=== PATIENT | male | born 1940 | race Caucasian/White ===

== ENCOUNTER → 2016-09-04 | Day surgery (SDC) | payer OTHER ==
[2016-08-28 08:43] VITALS: Ht 185.4 cm; Wt 85.9 kg
--- NOTE | 2016-08-28 09:11 | PAT Medication Instructions ---
Service Date Aug 28, 2016. Current Home Medication List Ascorbic Acid (Vitamin C), 500 MG PO BID Aspirin (Aspirin Ec), 81 MG PO QAM Coenzyme Q10 (Ubidecarenone) (Coq10), 100 MG PO Q2D Labelle Dextrin (Fiber Powder), 1 DOSE PO QAM Meloxicam (Mobic), 15 MG PO QAM [Di Vi Jennifer], 1 ML PO QAM [Fish Oil], 5 ML PO Q2D Medication Instructions For Your Scheduled Surgery - Stopped already: Meloxicam (Mobic), 15 MG PO QAM - Hold the following medications as of 08/29/16: [Fish Oil], 5 ML PO Q2D Coenzyme Q10 (Ubidecarenone) (Coq10), 100 MG PO Q2D - Hold the following medications the morning of surgery: Ascorbic Acid (Vitamin C), 500 MG PO BID Labelle Dextrin (Fiber Powder), 1 DOSE PO QAM [Di Vi Jennifer], 1 ML PO QAM - Take the following medications the morning of surgery with a sip of water OTHERWISE NOTHING TO EAT OR DRINK AFTER MIDNIGHT: Aspirin (Aspirin Ec), 81 MG PO QAM - Take the following medications as scheduled the night before surgery: Ascorbic Acid (Vitamin C), 500 MG PO BID If you have any questions please call us at [phone] or [phone] or [phone]
[2016-08-28 10:02] LABS: BASO % 0.7 %; BASO ABS # 0.04 K/uL (0-0.2); COMPLETE YES; EOS % 1.7 %; HEMATOCRIT 44.4 % (42-52); IG% 0.2 %; LYMPH ABS # 2.08 K/uL (1.2-3.4); MEAN CELL VOLUME 90.2 fL (80-100); MEAN CORPUSCULAR HEMOGLOBIN 30.5 pg (25-34); MEAN CORPUSCULAR HGB CONC 33.8 g/dl (32-36); MEAN PLATELET VOLUME 9.4 fL (7.4-10.4); MONO % 5.4 %; PLATELET COUNT 131 K/uL (130-400); RED BLOOD COUNT 4.92 M/uL (4.7-6.1); WHITE BLOOD COUNT 5.77 K/uL (4.8-10.8)
[2016-08-28 10:05] LABS: URINE APPEARANCE CLEAR (CLEAR); URINE BILIRUBIN NEG (NEG); URINE COLOR YELLOW; URINE NITRITE NEG (NEG); URINE PH 5.5 (4.5-7.5); URINE SPECIFIC GRAVITY 1.022 (1.000-1.030); UROBILINOGEN NEG (NEG); ZZUR CULT IF INDIC CLEAN CATCH NO
[2016-08-28 10:08] LABS: MANUAL MICROSCOPIC REQUIRED? NO; REVIEW REQ? NO
[2016-08-28 10:18] LABS: INR 1.1 (0.9-1.1); PARTIAL THROMBOPLASTIN RATIO 1.1; PROTHROMBIN TIME (PATIENT) 11.3 SECONDS (9.0-12.0)
--- NOTE | 2016-08-28 11:05 | DIAGNOSTIC IMAGING REPORT ---
CHEST PREADMISSION(PA/LAT) HISTORY: Preop. COMPARISON: Chest 07/02/2011. FINDINGS: The lungs are clear. Cardiac silhouette is normal in size. No pleural effusions. No pneumothorax. IMPRESSION: No acute process. Electronically signed by: Erick Albarado M.D. 08/28/2016 11:04 AM Dictated Date/Time: 08/28/2016 11:03 AM
[2016-08-28 11:13] LABS: BUN/CREATININE RATIO 25.5 (10-20); CALCIUM 9.1 mg/dl (8.5-10.1); CREATININE 0.65 mg/dl (0.60-1.40); POTASSIUM 4.2 mmol/L (3.5-5.1)
[2016-08-28 11:31] LABS: ESTIMATED AVERAGE GLUCOSE 100 mg/dl; HA1C FLAG Normal (Normal)
--- NOTE | 2016-09-03 13:36 | History and Physical ---
History & Physical Date Sep 03, 2016. Chief Complaint Left knee pain History of Present Illness The patient is a 76 year old male with complaints of Additional History Hepatic Disease: No Endocrine Disorder: No Kidney Disease: No Hypertension: No Heart Disease: No Bleeding Tendencies: No Infectious Diseases: No Allergies Coded Allergies: Sulfa Drugs (Verified Allergy, Intermediate, SWELLS, 08/28/16) Home Medications Scheduled Ascorbic Acid (Vitamin C), 500 MG PO BID Aspirin (Aspirin Ec), 81 MG PO QAM Coenzyme Q10 (Ubidecarenone) (Coq10), 100 MG PO Q2D [place] Dextrin (Fiber Powder), 1 DOSE PO QAM Meloxicam (Mobic), 15 MG PO QAM [Di Vi Jennifer], 1 ML PO QAM [Fish Oil], 5 ML PO Q2D Physical Examination Skin: warm/dry Eyes: normal inspection, EOMI ENT: normal ENT inspection, pharynx normal Head: normocephalic Neck: supple, no adenopathy Respiratory/Chest: lungs clear Cardiovascular: regular rate, rhythm Extremities: normal inspection, + pertinent finding (Left knee medial compartment pain, ROM ~ 0-130) Addiitonal Comments: Xrays: Near bone on bone arthritis medial compartment with mild osteophytes Diagnosis Left knee DJD Plan of Treatment Left total knee arthroplasty
[~2016-09-04] VITALS: Ht 185.4 cm; Wt 85.9 kg
[~2016-09-04] MED LIST: ACET-24 PO; ACETAMINOPHEN 500 MG TAB PO SCH; ASCO1CAP3 PO; ASPEC81 PO; ASPI81TA28 PO; BUPIVACAINE 0.5 % 5 MG/1 ML PF 10ML VIAL ONE; CEFAZOLIN 2000 MG/60 ML D5W 60 ML IV SCH; CLC100 PO; COEN100C7 PO; CORN1POW2 PO; DEXAMETHASONE 4 MG TAB PO SCH; FISHOIL PO; GABAPENTIN 300 MG CAP PO SCH; LACTATED RINGER'S 1000ML 1,000 ML IV SCH; LACTATED RINGER'S 1000ML 500 ML IV ONE; MELO7.5T5 PO; METOCLOPRAMIDE HCL 10 MG TAB PO SCH; ONDA8TAB6 PO; ROPIVACAINE 5MG/ML 30 ML 150 MG, BUPIVACAINE/EPINEPHR 0.5% MPF 30 ML, KETOROLAC TROMETH... INFIL SCH; RXC5 PO; TRANEXAMIC ACID INJ 1,000 MG in SODIUM CHLORIDE 0.9% 100ML 100 ML IV SCH; [UNRECOGNIZED DRUG - OTHER] PO
--- NOTE | 2016-09-04 09:37 | History & Physical Bridge Note ---
H&P Re-Evaluation Bridge Note: I have examined the patient, reviewed the History & Physical and in the interval since the performance of the History & Physical I have noted the following changes of clinical significance: No changes noted
--- NOTE | 2016-10-31 12:07 | EDITING REQUIRED CODING QUERY ---
SUPPORTING DIAGNOSIS NEEDED A supporting diagnosis is required for the test/procedure performed on this patient in order for us to be reimbursed by the patient's insurance. Please provide a supporting diagnosis for the following test/procedure listed below next to the test name along with your signature. *If there is no additional diagnosis for this patient that would support the following test/procedure please document that below next to the test/procedure. Test(s)/Procedure(s) that require a supporting diagnosis: * HEMOGLOBIN A1C z01.818 DIAGNOSIS:z01.818 Provider Signature: Date: Thank you Ines Cheng [facility] Information Management Once completed, please kindly fax back to [phone] For questions please call [phone]
== END | disposition home or self-care (01) ==
LOC: C.ACU 08:39
DX: Z53.09 Procedure and treatment not carried out because of other contraindication (principal); M17.12 Unilateral primary osteoarthritis, left knee; Z79.82 Long term (current) use of aspirin; Z85.828 Personal history of other malignant neoplasm of skin; Z96.641 Presence of right artificial hip joint

== ENCOUNTER 2016-10-09 05:58 | Inpatient (IN) | payer OTHER ==
[2016-09-29 14:41] VITALS: BMI 24.0
--- NOTE | 2016-10-08 13:46 | HISTORY & PHYSICAL EXAMINATION ---
DATE OF ADMISSION: 10/09/2016 CHIEF COMPLAINT: Left knee pain. HISTORY OF PRESENT ILLNESS: The patient is a 76-year-old gentleman who we have been taking care of for left knee osteoarthritis. He has had previous corticosteroid as well as viscosupplementation injections. He had minimal relief with these modalities. He continues to have a significant amount of pain and disability relating to his knee. He now desires to proceed with left total knee arthroplasty. PAST MEDICAL HISTORY: Osteoarthritis, allergic rhinitis, skin cancer. PAST SURGICAL HISTORY: Hip replacement, hemorrhoidectomy, hernia repair, excision of squamous cell carcinoma. MEDICATIONS: Aspirin 81 mg daily, CoQ10 100 mg every other day, fish oil daily, vitamin D3 daily, multivitamin daily, vitamin C 500 mg twice daily. ALLERGIES: SULFA WHICH CAUSES A RASH. SOCIAL HISTORY AND REVIEW OF SYSTEMS: Noncontributory. PHYSICAL EXAMINATION: GENERAL: Well-nourished, well-developed elderly male who appears stated age. HEAD, EYES, EARS, NOSE, AND THROAT: Normocephalic, atraumatic, extraocular movements intact, oropharynx pink and moist. NECK: Supple without adenopathy. LUNGS: Clear to auscultation bilaterally. HEART: Regular rate and rhythm. ABDOMEN: Soft, nontender, nondistended. EXTREMITIES: The upper extremities are within normal limits. The left knee is neutrally aligned. His range of motion from 0-125 degrees. He complains primarily of medial compartment pain. He has mild crepitus with range of motion. X-RAYS: X-rays were reviewed. His knee is neutrally aligned. He has moderate to severe osteoarthritis about the medial compartment with near complete loss of the joint space. There is evidence of subchondral sclerosis. ASSESSMENT: Left knee degenerative joint disease. PLAN: Risks versus benefits were discussed, consent was obtained. The patient's primary care physician is Dr. Patrica Zamorano. Will proceed with left total knee arthroplasty upon preoperative workup and medical clearance.
[~2016-10-09] VITALS: Ht 185.4 cm; Wt 84.1 kg
[2016-10-09] VITALS (8 sets, daily range): BP systolic 101–142; BP diastolic 60–79; PULSE 68–79; TEMP 36.3–36.7; O2SAT 93–98; Ht 185.4 cm; Wt 84.1 kg
[~2016-10-09 05:58] MED LIST changes: -ACET-24 PO; -ACETAMINOPHEN 500 MG TAB PO SCH; -ASPEC81 PO; -BUPIVACAINE 0.5 % 5 MG/1 ML PF 10ML VIAL ONE; -CEFAZOLIN 2000 MG/60 ML D5W 60 ML IV SCH; -CLC100 PO; -DEXAMETHASONE 4 MG TAB PO SCH; -GABAPENTIN 300 MG CAP PO SCH; -LACTATED RINGER'S 1000ML 1,000 ML IV SCH; -LACTATED RINGER'S 1000ML 500 ML IV ONE; -METOCLOPRAMIDE HCL 10 MG TAB PO SCH; -ONDA8TAB6 PO; -ROPIVACAINE 5MG/ML 30 ML 150 MG, BUPIVACAINE/EPINEPHR 0.5% MPF 30 ML, KETOROLAC TROMETH... INFIL SCH; -RXC5 PO; -TRANEXAMIC ACID INJ 1,000 MG in SODIUM CHLORIDE 0.9% 100ML 100 ML IV SCH
[2016-10-09] MEDS ORDERED: METOCLOPRAMIDE HCL 10 MG TAB PO SCH (06:00)
[2016-10-09] MEDS ORDERED: ROPIVACAINE 5MG/ML 30 ML 150 MG, BUPIVACAINE/EPINEPHR 0.5% MPF 30 ML, KETOROLAC TROMETH... INFIL SCH ×7 (06:00)
[2016-10-09] MEDS ORDERED: CEFAZOLIN 2000 MG/60 ML D5W 60 ML IV SCH (06:00)
[2016-10-09] MEDS ORDERED: LACTATED RINGER'S 1000ML IV SCH (06:00)
[2016-10-09] MEDS ORDERED: GABAPENTIN 300 MG CAP PO SCH (06:00)
[2016-10-09] MEDS ORDERED: DEXAMETHASONE 4 MG TAB PO SCH (06:00)
[2016-10-09] MEDS ORDERED: LACTATED RINGER'S 1000ML 1,000 ML IV SCH (06:00)
[2016-10-09] MEDS ORDERED: ACETAMINOPHEN 500 MG TAB PO SCH (06:00)
[2016-10-09] MEDS ORDERED: FAMOTIDINE 20 MG TAB PO SCH (06:00)
[2016-10-09] MEDS ORDERED: LACTATED RINGER'S 1000ML 500 ML IV ONE (06:00)
[2016-10-09] MEDS ORDERED: BUPIVACAINE 0.5 % 5 MG/1 ML PF 10ML VIAL ONE (06:30)
[2016-10-09] MEDS ORDERED: BUPIVACAINE/EPINEPHRINE 0.25% 10 ML VIAL ONE (06:31)
[2016-10-09] MEDS ORDERED: DEXAMETHASONE SOD INJ 4 MG/ML VIAL ONE (06:31)
[2016-10-09] MEDS ORDERED: FENTANYL CITRATE INJ 50 MCG/1 ML 2 ML VIAL ONE (06:52)
[2016-10-09] MEDS ORDERED: MIDAZOLAM HCL 1 MG/ML 2ML VIAL ONE (06:52)
[2016-10-09] MEDS ORDERED: ATROPINE SULFATE 0.1 MG/ML 5ML SYR IV PRN (07:15)
[2016-10-09] MEDS ORDERED: EpHEDrine SULFATE INJ 50 MG/ML AMP IV PRN (07:15)
[2016-10-09] MEDS ORDERED: ONDANSETRON INJ 2 MG/ML 2 ML VIAL IV PRN ×2 (07:15→09:30)
[2016-10-09] MEDS ORDERED: FENTANYL CITRATE INJ 50 MCG/1 ML 2 ML VIAL IV PRN (07:15)
[2016-10-09] MEDS ORDERED: PROMETHAZINE HCL INJ 6.25 MG in SODIUM CHLORIDE 0.9% 50ML 50 ML IV PRN (07:15)
[2016-10-09] MEDS: TRANEXAMIC ACID INJ 1,000 MG in SODIUM CHLORIDE 0.9% 100ML 100 ML IV SCH ×2 (07:20→13:12)
[2016-10-09] MEDS ORDERED: POVIDONE-IODINE OP SOLN 30 ML BTL ONE (07:45)
[2016-10-09] MEDS ORDERED: BACITRACIN 50000 UNIT VIAL ONE (07:45)
[2016-10-09] MEDS ORDERED: ORTHO JOINT ANESTHETIC ONE (07:45)
[2016-10-09] MEDS ORDERED: PHENYLEPHRINE 100MCG/ML 5ML SYR ONE (08:25)
[2016-10-09] MEDS ORDERED: PROPOFOL IV EMULSION 10 MG/ML 20 ML VIAL IV ONE (08:25)
[2016-10-09] MEDS ORDERED: LIDOCAINE HCL 2% 2 ML VIAL (20MG/ML) ONE (08:25)
--- NOTE | 2016-10-09 09:14 | [facility] Operative Report ---
Operative Report Operative Date Oct 09, 2016. Pre-Operative Diagnosis Left Knee Degenerative Joint Disease Post-Operative Diagnosis Left Knee Degenerative Joint Disease Procedure(s) Performed Left Total Knee Arthroplasty Surgeon Dr Gutierrez Interactive Marketing Strategist Surgeon(s) Jaya Merritt Estimated Blood Loss 10cc Findings severe OA Specimens As per Surgeon A. Left Knee Bone and Tissue Disposition Recovery Room / PACU I attest to the content of the Intraoperative Record and any orders documented therein. Any exceptions are noted below.
[2016-10-09] MEDS ORDERED: BISACODYL 10 MG SUPP PR PRN (09:30)
[2016-10-09] MEDS ORDERED: METOCLOPRAMIDE HCL INJ 5 MG/ML 2 ML VIAL IV PRN (09:30)
[2016-10-09] MEDS ORDERED: MoRPHine SULFATE 2 MG/ML CARP IV PRN (09:30)
[2016-10-09] MEDS ORDERED: SOD PHOSPHATE/SOD BIPHOSPHATE ENEMA 132 ML BTL PR PRN (09:30)
[2016-10-09] MEDS ORDERED: MAGNESIUM HYDROXIDE SUSP 30 ML UDC PO PRN (09:30)
--- NOTE | 2016-10-09 09:57 | OPERATIVE REPORT ---
DATE OF OPERATION: 10/09/2016 PREOPERATIVE DIAGNOSIS: Osteoarthritis, left knee. POSTOPERATIVE DIAGNOSIS: Osteoarthritis, left knee. PROCEDURE: Left total knee arthroplasty. SURGEON: Dr. Gutierrez. ETL CONSULTANT: PAUL Addison ANESTHESIA: Spinal. COMPLICATIONS: None. IMPLANTS USED: Femoral size 6, tibial size 5, tibial poly 13, and patella size 39. OPERATION AND FINDINGS: Following induction of spinal anesthesia, the patient's left leg was prepped and draped in the usual sterile manner. Limb was exsanguinated with an Esmarch bandage and tourniquet was inflated to 350 mmHg. A longitudinal incision was made anteriorly. Subcutaneous tissue was sharply dissected. Electrocautery was used for hemostasis. Prepatellar bursa was incised and median parapatellar incision was performed. Patella was everted and the knee was flexed. Fat pad was removed to aid in visualization and the anterior and posterior cruciate ligaments were removed. The medial face of the tibia was cleared of soft tissue first with a Bovie and a Monterroso elevator. This tissue was retracted posteriorly using a blunt Hohmann. A Lo retractor was used to expose the synovium above on the anterior aspect of the femur and this was removed down to bone. The PSI guide was placed on the distal femur and two pins were placed anteriorly and kept in position and two additional pins were placed distally and removed. The distal femoral cutting block was placed in position and the distal femoral cut was used in the +0 setting. Next, the cutting block was removed and the femoral block was placed in the distal end of the femur. Care was taken to ensure appropriate external rotation and feeler gauge was used to ensure no notching would occur. The femoral block was centered on the distal femur and in the medial and lateral direction and was fixed using two bone screws. The gold pins were then removed. The oscillating saw was used to create the bone cuts and the distal femoral cutting block was removed and the reciprocating saw was used to further trim the femoral cuts as well as a deep in the area for the trochlear groove. Next, posterior condyle remnants were removed. Following this, a meniscal clamp and knife were utilized to remove the anterior portion of both medial and lateral meniscus. The proximal tibia PSI guide was placed into position and the proximal tibial cutting guide was screwed into position. The extra medullary alignment guide was utilized to ensure appropriate alignment. The proximal tibia was cut and the proximal tibial cutting block was removed and this bone fragment was removed. The appropriate guide was used to perform the notch cut on the distal femur and a lamina keyboard action assembler and a cochlear knife were utilized to finish both medial and lateral meniscectomies to remove any remnants of the posterior or anterior cruciate ligaments. Following this, the distal femoral component was impacted into position and blunt Eric was used to sublux the tibia anteriorly. The proximal tibia was sized and a 5 tibial tray was chosen as the size to be used. This was put into position and appropriate external rotation and a double check with extramedullary alignment guide was performed. The canal for the tibial stem was prepared first with a 17 mm drill and then the punch and a mallet and the trial tibial poly was placed. A 13 was chosen the size to be used. It was brought to extension and the patella was prepared with the patellar reamer. A 39 component was chosen the size to be used. The trial component was placed and knee was taken through a full range of motion and there was found to be no lateral subluxation of the tibia. No lateral release was required. The trials were all removed. The final components were obtained and assembled. Cement was mixed. The knee was thoroughly irrigated and the ortho mix was injected about the knee joint. The final components were cemented into position. After thoroughly suctioning and drying the bone ends, all excess cement was removed. The knee was held in extension while the cement hardened. The wound was irrigated and closed over a Hemovac drain. #1 Vicryl was used to close the extensor mechanism. Subcutaneous tissues closed using 0 Dexon. Skin was closed with dasha. Sterile dressing of Adaptic, 4 x 4's, sterile Webril, and Jason was applied. The patient tolerated the procedure well. Due to the complex nature of the procedure, the entire surgery was performed with the operational assistance of PAUL Addison. The executive sales assistant, under direct supervision, was involved in the actual performance of all aspects of the surgical procedure including hemostasis, tissue retraction and incision, instrument management, patient positioning, and wound closure. DISPOSITION: Recovery room stable. I attest to the content of the Intraoperative Record and any orders documented therein. Any exception s are noted below.
--- NOTE | 2016-10-09 10:04 | DIAGNOSTIC IMAGING REPORT ---
LEFT KNEE 1 OR 2 VIEWS ROUTINE CLINICAL HISTORY: Postoperative evaluation. COMPARISON: None FINDINGS: Alignment of the total left knee arthroplasty is anatomic. There is no fracture or unexpected radiopaque foreign body. Drains and skin dasha are present. IMPRESSION: Expected findings following total left knee arthroplasty. Electronically signed by: Kevin Meza M.D. 10/09/2016 10:03 AM Dictated Date/Time: 10/09/2016 10:02 AM
--- NOTE | 2016-10-09 10:55 | Anesthesiology Progress Note ---
Anesthesia Post Op Note Date & Time Oct 09, 2016 at 10:54 Vital Signs Pain Intensity: 0 Vital Signs Past 12 Hours Date Time Temp Pulse Resp B/P (MAP) Pulse Ox O2 Delivery O2 Flow Rate FiO2 10/09/16 10:40 74 20 125/72 98 Nasal Cannula 2 10/09/16 10:30 36.7 73 14 129/68 97 Nasal Cannula 2 10/09/16 10:20 70 18 118/73 97 Nasal Cannula 3 10/09/16 10:10 75 18 120/66 97 Nasal Cannula 3 10/09/16 10:00 74 20 116/63 96 Nasal Cannula 3 10/09/16 09:50 77 20 119/64 99 Nasal Cannula 3 10/09/16 09:43 37.0 78 12 116/62 96 Mask 10 10/09/16 06:46 36.4 73 20 142/79 93 Room Air Notes Mental Status: alert / awake / arousable, participated in evaluation Pt Amnestic to Procedure: No Nausea / Vomiting: adequately controlled Pain: adequately controlled Airway Patency, RR, SpO2: stable & adequate BP & HR: stable & adequate Hydration State: stable & adequate Neuraxial Anesthesia: was administered, sensory block is resolving Anesthetic Complications: no major complications apparent Non distressing recall intraop as discussed preoperatively
[2016-10-09] MEDS ORDERED: NON-FORMULARY MEDICATION (Coenzyme Q10 (Ubidecarenone) (Coq10) 100 MG) PO SCH (11:15)
[2016-10-09] MEDS ORDERED: MoRPHine SULFATE 10 MG/ML CARP/VIAL IV PRN (12:00)
[2016-10-09] MEDS ORDERED: MoRPHine SULFATE 4 MG/ML 1 ML CARP\\VIAL IV PRN (12:00)
[2016-10-09] MEDS: D5W AND 1/2NSS + 20MEQ KCL 1,000 ML IV SCH ×2 (13:12→21:56)
[2016-10-09] MEDS ORDERED: TRANEXAMIC ACID INJ 1,000 MG in SODIUM CHLORIDE 0.9% 100ML 100 ML IV SCH (16:00)
[2016-10-09] MEDS: CEFAZOLIN IV 2,000 MG in DEXTROSE 5% 50ML 50 ML IV SCH (16:55)
[2016-10-09] MEDS: DOCUSATE SODIUM 100 MG CAP PO SCH (21:55)
[2016-10-09] MEDS: SENNA 8.6 MG TAB PO SCH (21:55)
[2016-10-09] MEDS: ASPIRIN 325 MG ECTAB PO SCH (21:56)
[2016-10-10] VITALS (7 sets, daily range): BP systolic 109–126; BP diastolic 60–68; PULSE 62–76; TEMP 36.3–36.7; O2SAT 89–98
[2016-10-10] MEDS: CEFAZOLIN IV 2,000 MG in DEXTROSE 5% 50ML 50 ML IV SCH (00:07)
[2016-10-10] MEDS: D5W AND 1/2NSS + 20MEQ KCL 1,000 ML IV SCH (07:49)
--- NOTE | 2016-10-10 08:23 | Anesthesiology Progress Note ---
Anesthesia Post Op Note Date & Time Oct 10, 2016 at 08:23 Vital Signs Vital Signs Past 12 Hours Date Time Temp Pulse Resp B/P (MAP) Pulse Ox O2 Delivery O2 Flow Rate FiO2 10/10/16 07:46 36.4 68 16 114/60 (78) 89 Room Air 10/10/16 07:45 Room Air 10/10/16 04:02 36.3 62 16 111/63 (79) 96 Room Air 10/10/16 00:02 Room Air 10/09/16 23:11 36.3 68 16 126/72 (90) 97 Room Air Notes Mental Status: alert / awake / arousable, participated in evaluation Pt Amnestic to Procedure: Yes Nausea / Vomiting: adequately controlled Pain: adequately controlled Airway Patency, RR, SpO2: stable & adequate BP & HR: stable & adequate Hydration State: stable & adequate Neuraxial Anesthesia: was administered, sensory block resolved Anesthetic Complications: no major complications apparent
[2016-10-10] MEDS: DOCUSATE SODIUM 100 MG CAP PO SCH ×2 (09:14→20:58)
[2016-10-10] MEDS: ASPIRIN 325 MG ECTAB PO SCH (09:14)
[2016-10-10] MEDS: OXYCODONE HCL IR 5 MG TAB (IMMEDIATE RELEASE) PO PRN ×2 (09:15→17:59)
--- NOTE | 2016-10-10 12:02 | Orthopedic Progress Note ---
Orthopedic Progress Note Date of Service Oct 10, 2016. Subjective Post OP Day: 1 Reports: feeling well, complaints (urinary retention; left foot numbness), pain controlled w PO medications, Denies: chest pain, SOB, nausea / vomiting, light headedness, calf pain Objective calves soft nontender, dressing C/D/I, A&O x3, toes mobile Weak dorsiflexion with the operative foot. Numbness noted over the dorsum of the foot. Date Time Temp Pulse Resp B/P (MAP) Pulse Ox O2 Delivery O2 Flow Rate FiO2 10/10/16 07:46 36.4 68 16 114/60 (78) 89 Room Air 10/10/16 07:45 Room Air 10/10/16 07:30 96 Room Air 10/10/16 04:02 36.3 62 16 111/63 (79) 96 Room Air 10/10/16 00:02 Room Air 10/09/16 23:11 36.3 68 16 126/72 (90) 97 Room Air 10/09/16 15:52 36.7 69 18 101/60 (74) 97 Room Air 10/09/16 14:25 36.4 79 18 114/65 (81) 95 Nasal Cannula 2.0 10/09/16 13:25 77 18 116/71 (86) 97 10/09/16 12:25 72 18 122/76 (91) 98 10/09/16 11:55 36.3 74 18 128/74 (92) 97 Nasal Cannula 2.0 Assessment & Plan Assessment: POD 1 s/p Left TKA Mild drop foot - Likely from intra op injection Urinary retention Plan: Continue PT Pt has been straight cathed twice. If needed again, will need to place carmona. Follow foot drop for now. Will likely resolve over next 24- 48 hours Inhouse Planning Pain Management: Morphine, PO Tylenol, Oxy IR DVT Prophylaxis: TEDs, SCDs, ASA Discharge Planning [facility]charge [facility] facility Pain Management: PO Tylenol, Oxy IR DVT Prophylaxis: TEDs, ASA Therapy: Physical Therapy
[2016-10-10] MEDS: ACETAMINOPHEN 500 MG TAB PO SCH ×2 (13:55→20:57)
[2016-10-10 14:49] LABS: HEMATOCRIT 33.7 % (42-52); MEAN CELL VOLUME 90.1 fL (80-100); MEAN CORPUSCULAR HEMOGLOBIN 31.3 pg (25-34); MEAN CORPUSCULAR HGB CONC 34.7 g/dl (32-36); MEAN PLATELET VOLUME 9.4 fL (7.4-10.4); PLATELET COUNT 137 K/uL (130-400); RED BLOOD COUNT 3.74 M/uL (4.7-6.1); WHITE BLOOD COUNT 12.91 K/uL (4.8-10.8)
[2016-10-10 15:10] LABS: BUN/CREATININE RATIO 29.2 (10-20); CALCIUM 8.3 mg/dl (8.5-10.1); CREATININE 0.77 mg/dl (0.60-1.40); POTASSIUM 4.2 mmol/L (3.5-5.1)
[2016-10-10] MEDS: ASPIRIN 81 MG ECTAB PO SCH (20:56)
[2016-10-10] MEDS: SENNA 8.6 MG TAB PO SCH (20:57)
[2016-10-11] MEDS: ACETAMINOPHEN 500 MG TAB PO SCH ×3 (05:51→21:47)
[2016-10-11 06:46] VITALS: BP 121/62; PULSE 68; TEMP 36.5; O2SAT 99
[2016-10-11] MEDS: OXYCODONE HCL IR 5 MG TAB (IMMEDIATE RELEASE) PO PRN ×3 (07:14→19:15)
--- NOTE | 2016-10-11 08:39 | Orthopedic Progress Note ---
Orthopedic Progress Note Date of Service Oct 11, 2016. Subjective Post OP Day: 2 Reports: feeling well, pain controlled w PO medications, Denies: complaints, chest pain, SOB, nausea / vomiting, light headedness, calf pain Additional Notes: foot drop improved, now voiding without problem. Objective calves soft nontender, N/V intact, capillary refill less than 2 sec., dressing C /D/I (silverlon intact), A&O x3, toes mobile Date Time Temp Pulse Resp B/P (MAP) Pulse Ox O2 Delivery O2 Flow Rate FiO2 10/11/16 06:46 36.5 68 20 121/62 (81) 99 Room Air 10/10/16 23:43 36.7 66 16 109/64 (79) 94 Room Air 10/10/16 19:30 Room Air 10/10/16 15:14 36.6 71 16 110/61 (77) 98 Room Air 10/10/16 11:52 36.5 70 16 126/68 (87) 94 Room Air 10/10/16 11:00 76 96 Laboratory Results 24 Hours: Test 10/10/16 14:09 Hematocrit 33.7 % Hemoglobin 11.7 g/dL Assessment & Plan Assessment: POD 2 s/p Left TKA Foot drop- resolved Urinary retention- resolved. will cont to observe Plan: Continue PT Accepted to [facility] Thursday Discharge Planning [facility] Pain Management: PO Tylenol, Oxy IR DVT Prophylaxis: TEDs, ASA Therapy: Physical Therapy
--- NOTE | 2016-10-11 08:44 | Discharge Instructions ---
Discharge Instructions Date of Service Oct 11, 2016. Admission Reason for Admission: Left Knee Degenerative Joint Disease Discharge Discharge Diagnosis / Problem: Left Total Knee Replacement Discharge Goals Goal(s): Decrease discomfort, Improve function, Increase independence Activity Recommendations Activity Level: Up [place] Therapies: Physical Therapy, Weight Bearing Status (WBAT left leg with walker) Weightbearing Status: Left weightbearing (as tolerated) Shower/Bathe: may shower/bathe in 3 days . Additional Information Patient informed of condition: Yes Advance Directives: No DNR: No Level of Care: Skilled Communicable Disease: No Prognosis: Stable Barlow Catheter: No Instructions / Follow-Up Instructions / Follow-Up ACTIVITY RECOMMENDATIONS: SELF CARE INSTRUCTIONS AFTER TOTAL KNEE REPLACEMENT A. You may need to continue a physical therapy program after discharge from the hospital. There are several options available to you. Your doctor will assist you in selecting the best one for you. 1. An out-patient facility 2 to 3 times a week for therapy or home therapy. 2. Continue working on all exercises taught to you in the hospital. Your goals should be to increase bending of your knee to 90 degrees and beyond and to fully straighten your knee. B. You may progress at your own pace from walking with a walker or crutches to a cane; then to no assistive devices. C. Make walking a part of your daily routine. Be up as much as comfortable with rest periods throughout the day. Rest with leg elevation is very important. Use the ice wrap frequently for the first 3-4 weeks. D. There are no restrictions on activities. You may ride in a car, shop, participate in machine carton marker and all social activities. E. Wear the long elastic stockings (TREVOR hose) 20 hours a day for 2 weeks after surgery. They can be removed several times a day for laundering and for a bath. F. You may shower, no tub baths until cleared by your doctor. SPECIAL CARE INSTRUCTIONS: VERY IMPORTANT TO READ AND REVIEW A. There are a few signs you need to watch for after you are home. Call [facility] if you notice any of the followin. Increased severe knee pain. Some pain is expected especially when you exercise. 2. Increased swelling in your leg or knee; pain or swelling of the calf muscle in either lower leg. 3. Any fluid drainage from the incision. 4. Shortness of breath or chest pain. B. Please call [facility] at if you have any concerns or questions about your operation or recovery. The doctor or his nurse will return your call promptly. C. You must take antibiotics before dental work, bladder, bowel or other surgery. Your doctor will provide you with a permanent care to carry describing this precaution. IMPORTANT: * REMEMBER TO TAKE ASPIRIN, 81 MG, TWICE DAILY FOR 4 WEEKS UNLESS OTHERWISE DIRECTED. THIS IS YOUR BLOOD THINNER. * HIGH RISK PATIENTS MAY BE PRESCRIBED A STRONGER BLOOD THINNER. THIS WILL BE PROVIDED AT DISCHARGE. * CALL IF INCREASED PAIN, REDNESS, DRAINAGE OR FEVER GREATER THAT 101. * WEAR TREVOR HOSE 20 HOURS PER DAY FOR 2 WEEKS. * YOU MAY HAVE A LARGE BAND-AID LIKE DRESSING (SILVERON). THIS WILL REMAIN ON YOUR INCISION FOR 7 DAYS, THEN CAN BE REMOVED. IF INCISION IS LEAKING THROUGH DRESSING, CALL THE OFFICE . FOLLOW UP VISIT: If appointment is not already scheduled: Please call [facility] to make a follow-up appointment for 2 weeks after your surgery at . Current Hospital Diet Patient's current hospital diet: Regular Diet Discharge Diet Recommended Diet: Regular Diet Procedures Procedures Performed: Left Total Knee Arthroplasty Pending Studies Studies pending at discharge: no Physician Orders On Transfer Dressing Changes: Silverlon- This is a large adhesive bandage that contains silver ions. This helps your incision heal by fighting off bacteria and protecting it from the outside environment. You are permitted to shower with this dressing. This will remain on your incision for 7 days and then should be removed. Some visible blood or drainage through the dressing window is normal. If there is significant drainage or leaking noted before the 7 days notify your doctor's office immediately. Once removed, keep incision clean and dry. If there is any drainage or redness noted, please call your surgeon. Laboratory Results Hemoglobin A1c Test 08/28/16 09:20 Range/Units Estimated Average Glucose 100 mg/dl Hemoglobin A1c 5.1 4.5-5.6 % Medical Emergencies . Who to Call and When: Medical Emergencies: If at any time you feel your situation is an emergency, please call 911 immediately. . Non-Emergent Contact Non-Emergency issues call your: Primary Care Provider . . "Provider Documentation" section prepared by Jose Antonio Joshi. . Core Measure Problem Core Measures: None [place] Drug Monitoring Program Search Results: patient reviewed within database, no issues identified
[2016-10-11 09:43] VITALS: BP 121/66; PULSE 68; O2SAT 99
[2016-10-11] MEDS: ASPIRIN 81 MG ECTAB PO SCH ×2 (10:04→21:47)
[2016-10-11] MEDS: DOCUSATE SODIUM 100 MG CAP PO SCH ×2 (10:04→21:47)
[2016-10-11 15:44] VITALS: BP 130/66; PULSE 80; TEMP 36.7; O2SAT 93
[2016-10-11] MEDS: SENNA 8.6 MG TAB PO SCH (21:47)
[2016-10-11 23:25] VITALS: BP 124/71; PULSE 72; TEMP 36.8; O2SAT 97
[2016-10-12] MEDS: ACETAMINOPHEN 500 MG TAB PO SCH (05:58)
--- NOTE | 2016-10-12 06:04 | Orthopedic Progress Note ---
Orthopedic Progress Note Date of Service Oct 12, 2016. Subjective Post OP Day: 3 Reports: feeling well, pain controlled w PO medications, Denies: complaints, chest pain, SOB, nausea / vomiting, light headedness, calf pain Objective calves soft nontender, N/V intact, capillary refill less than 2 sec., dressing C /D/I (silverlon intact), A&O x3, toes mobile Date Time Temp Pulse Resp B/P (MAP) Pulse Ox O2 Delivery O2 Flow Rate FiO2 10/11/16 23:25 36.8 72 16 124/71 (88) 97 Room Air 10/11/16 22:51 Room Air 10/11/16 16:00 Room Air 10/11/16 15:44 36.7 80 19 130/66 (87) 93 Room Air 10/11/16 09:43 68 99 10/11/16 08:51 Room Air 10/11/16 06:46 36.5 68 20 121/62 (81) 99 Room Air Assessment & Plan Assessment: POD 3 s/p Left TKA Foot drop- resolved Urinary retention- resolved. will cont to observe Plan: Continue PT Accepted to [facility] Thursday. He is doing well, progressing well, will d/c to [facility] today. Discharge Planning Discharge Planning: long-term facility Pain Management: PO Tylenol, Oxy IR DVT Prophylaxis: TEDs ASA Therapy: Physical Therapy
[2016-10-12] MEDS ORDERED: RXC5 PO (06:08)
[2016-10-12] MEDS ORDERED: ACET-24 PO (06:08)
[2016-10-12] MEDS ORDERED: ONDA8TAB6 PO (06:08)
[2016-10-12] MEDS ORDERED: ASPEC81 PO (06:08)
[2016-10-12] MEDS ORDERED: CLC100 PO (06:08)
[2016-10-12 07:54] VITALS: BP 123/66; PULSE 81; TEMP 36.7; O2SAT 96
[2016-10-12] MEDS: ASPIRIN 81 MG ECTAB PO SCH (08:51)
[2016-10-12] MEDS: DOCUSATE SODIUM 100 MG CAP PO SCH (08:51)
[2016-10-12] MEDS: OXYCODONE HCL IR 5 MG TAB (IMMEDIATE RELEASE) PO PRN (08:52)
[2016-10-12 09:27] VITALS: BP 115/74; PULSE 86; O2SAT 99
--- NOTE | 2016-10-16 16:02 | DISCHARGE SUMMARY ---
DISCHARGE DIAGNOSIS: Degenerative joint disease, left knee. SECONDARY DIAGNOSES: Allergic rhinitis and skin cancer in the past. CONSULTS: None. COMPLICATIONS: None. PROCEDURE: Left total knee arthroplasty performed by Dr. Gutierrez on 10/09/2016. BRIEF HISTORY: As dictated in the history and physical. HOSPITAL SUMMARY: The patient was admitted on the above date and had the above-noted surgery performed, which he tolerated well. On the first postoperative day, he was feeling well and pain was controlled. He complained of some urinary retention and some left foot numbness on the operative side. Calves were soft and nontender. Dressings were clean, dry and intact. Toes were mobile. He had a weak dorsiflexion with the operative foot. Numbness was noted over the dorsum of the foot. Vital signs were stable. He was afebrile. He was started on physical therapy protocol and continued on DVT prophylaxis and pain management. His mild footdrop was likely due to intraoperative injection during the procedure and plans were to watch for improvement. The patient had been catheterized twice for his urinary retention and plans were to place a Bar[place] if another catheterization was needed. By his second postoperative day, he was feeling well and pain was controlled. His foot drop had improved and he was now voiding without difficulty. Calves were soft and nontender. Neurovascularly intact. Cap refill is less than 2 seconds. Dressings were clean, dry and intact. Toes were mobile. Hemoglobin was 11.7. Plans were for him to go to the [facility], a [facility] facility and he was going to be accepted on the following day and was continued on his PT protocol. The rest of his stay was essentially uneventful and by October 12, he was feeling well. No complaints. Dressings remained intact. Toes were mobile. He was progressing with his PT and it was felt he transfer to the [facility] for further physical therapy and care. For further review, please see chart. LAB AND X-RAY DATA: As per chart. DISCHARGE INSTRUCTIONS: The patient was transferred to the [facility] on 10/12/2016. DIET: Regular. ACTIVITY: Weightbearing as tolerated, left lower extremity. Follow TK instruction sheets and special care instructions as noted. Follow up with Dr. Gutierrez in 2 weeks. The patient is to call for appointment if one has not been made for you. DISCHARGE MEDICATIONS: Tylenol 1000 mg p.o. q. 8 hours, aspirin 81 mg p.o. b.i.d., Colace 100 mg p.o. b.i.d., Zofran 8 mg p.o. q. 8 hours p.r.n., and oxycodone 5-10 mg p.o. q. 4 hours p.r.n. Resume home meds as listed and stop taking meloxicam. After 30 days, stop taking the aspirin twice daily and resume once daily dosing.
== END 2016-10-12 11:27 | DRG 470 ==
LOC: C.ACU 05:58 → C.3E 07:00 → ENRESERV 10:33
PROC: 0SRD0J9 Replacement of Left Knee Joint with Synthetic Substitute, Cemented, Open Approach (ICD-10-PCS; principal; 2016-10-09 08:00)
DX: M17.12 Unilateral primary osteoarthritis, left knee (principal); M21.372 Foot drop, left foot; T80.89XA Other complications following infusion, transfusion and therapeutic injection, initial encounter; Y84.8 Other medical procedures as the cause of abnormal reaction of the patient, or of later complication, without mention of misadventure at the time of the procedure; Y92.234 Operating room of hospital as the place of occurrence of the external cause; R33.9 Retention of urine, unspecified; Z96.641 Presence of right artificial hip joint; Z87.891 Personal history of nicotine dependence; Z79.82 Long term (current) use of aspirin; Z79.1 Long term (current) use of non-steroidal anti-inflammatories (NSAID)

== ENCOUNTER → 2017-06-09 | Day surgery (SDC) | payer OTHER ==
[2017-05-22 14:18] VITALS: Ht 185.4 cm; Wt 84.1 kg
[~2017-06-09] VITALS: Ht 185.4 cm; Wt 84.1 kg
[~2017-06-09] MED LIST changes: +500ML BSS 0.3ML EPI 1:1000PF IRRIG ONE; +ACETAMINOPHEN 325 MG TAB PO PRN; +AMVISC PLUS 0.8ML SYRINGE INT OCU ONE; +ATROPINE SULFATE 0.1 MG/ML 5ML SYR IV PRN; +BSS FLUSH ONE; +EpHEDrine SULFATE INJ 50 MG/ML AMP IV PRN; +EpINEphrine INJ 1MG/ML AMP 1 MG/ML AMP ONE; +FENTANYL CITRATE INJ 50 MCG/1 ML 2 ML VIAL ONE; +LACTATED RINGER'S 1000ML 500 ML IV SCH; +LIDOCAINE 3.5% OPH GEL PER APPLICATION CHARGE ONE; +LIDOCAINE HCL 1% MPF 2 ML VIAL ONE; -MELO7.5T5 PO; +MIDAZOLAM HCL 1 MG/ML 2ML VIAL ONE; +OCUCOAT 1 ML SOLN IO ONE; +POVIDONE-IODINE OP SOLN 30 ML BTL ONE; +PROPARACAINE 0.5% OP SOLN PER DROP CHARGE OPL SCH; +TOBRAMYCIN/DEXAMETHASONE OPH OINT PER APPLN CHARGE ONE; +VITAMIN PO
[2017-06-09] MEDS: PHENYLEPHRINE HCL 2.5% OP SOLN PER DROP CHARGE OPL SCH ×2 (11:40→11:45)
[2017-06-09] MEDS: TROPICAMIDE 1% OP SOLN PER DROP CHARGE OPL SCH ×2 (11:41→11:46)
[2017-06-09] MEDS: CYCLOPENTOLATE HCL 1% OP SOLN PER DROP CHARGE OPL SCH ×2 (11:42→11:47)
[2017-06-09] MEDS: KETOROLAC 0.5% OP SOLN PER DROP CHARGE OPL SCH ×2 (11:43→11:48)
[2017-06-09] MEDS: GATIFLOXACIN OP SOLN PER DROP CHARGE OPL SCH ×2 (11:44→11:54)
--- NOTE | 2017-06-09 12:51 | Discharge Instructions-SurgCtr ---
Discharge Instructions Date of Service Jun 09, 2017. Visit Reason for Visit: Cataract Left Eye Discharge Discharge Diagnosis / Problem: cataract Discharge Goals Goal(s): Improve function Activity Recommendations Activity Limitations: per Instructions/Follow-up section Anesthesia . Post Anesthesia Instructions: If you have had General Anesthesia or IV Sedation: * Do not drive today. * Resume driving when surgeon permits. * Do not make important decisions or sign legal documents today. * Call surgeon for: 1. Temperature elevations greater than 101 degrees F. 2. Uncontrollable pain. 3. Excessive bleeding. 4. Persistent nausea and vomiting. 5. Medication intolerance (nausea, vomiting or rash). * For nausea and vomiting use only clear liquids such as: tea, soda, bouillon until nausea subsides, then gradually increase diet as tolerated. * If you have any concerns or questions, call your surgeon's office. If physician is unavailable and it is an emergency, call 911 or go to the nearest emergency room. . Diet Recommendations Home Diet: resume previous diet Procedures Procedures Performed: Left Cataract Phacoemulsification With Intraocular Lens Implant Pending Studies Studies pending at discharge: no Medical Emergencies . Who to Call and When: Medical Emergencies: If at any time you feel your situation is an emergency, please call 911 immediately. . Non-Emergent Contact Non-Emergency issues call your: Fire Fighter . . "Provider Documentation" section prepared by Arley De. .
--- NOTE | 2017-06-09 12:51 | [facility] Operative Report ---
Operative Report Date of Service Jun 09, 2017. Operative Report 1. PREOPERATIVE DIAGNOSIS: Cataract of the left eye. 2. POSTOPERATIVE DIAGNOSIS: Same. 3. PROCEDURE: Phacoemulsification with intraocular lens implantation of the left eye. SURGEON: Dr. Arley De. ANESTHESIA: Topical Lidocaine gel, 1% Non- Preserved intracameral Lidocaine, and monitored intravenous sedation. INDICATIONS FOR THE PROCEDURE: The patient is a 76 - year-old male with a history of cataract of the left eye causing significant visual impairment. The details of the proposed procedure were explained to the patient who asked appropriate questions and following discussion of all risks, benefits and alternatives agreed to have the procedure done. 4. OPERATION AND FINDINGS: DESCRIPTION OF PROCEDURE: After informed consent was obtained, the patient was brought to the Operating Room at the [facility]. The patient was placed in a supine position and then the left eye was prepped and draped in the usual sterile fashion for intraocular surgery. A drop of topical Lidocaine gel was placed in the operative eye. A wire lid speculum was then placed in the fornices. A corneal paracentesis was then created temporally. The Non-Preserved Lidocaine was then instilled into the anterior chamber. The anterior chamber was then pressurized with viscoelastic. A 2.0 mm clear corneal incision was then created temporally. A cystotome was inserted into the anterior chamber and used to create a tear in the anterior lens capsule. This capsular tear was then used to create a small flap and the flap was dragged in a counterclockwise direction in order to create a continuous curvilinear capsulorrhexis. Hydrodissection was accomplished with balanced salt solution. Phacoemulsification of the lens nucleus was then performed in a standard [id number] technique. The phaco time was 30 seconds with an average power of 17 %. The remaining cortical material was removed using irrigation aspiration. The capsular bag was then filled with viscoelastic. A Bausch [employer] Lomb MI60L +19.5 diopters lens was then loaded into the injector and injected into the capsular bag. The remaining viscoelastic was removed with the irrigation aspiration handpiece. The wound was hydrated and then checked and found to be watertight. The intraocular pressure was checked and found to be adequate. The wire lid speculum was removed and the patient's face was cleaned and dried. TobraDex ointment was placed in the inferior fornix. The patient was discharged to the Recovery Room having tolerated the procedure well. There were no complications. The patient will be seen tomorrow in the office for follow-up. I attest to the content of the Intraoperative Record and any orders documented therein. Any exceptions are noted below.
[2017-06-09 12:54] VITALS: TEMP 36.4
--- NOTE | 2017-06-09 13:12 | Anesthesia Progress Nt - [facility] ---
Anesthesia Post Op Note Date & Time Jun 09, 2017 at 13:12 Vital Signs Pain Intensity: 0 Vital Signs Past 12 Hours Date Time Temp Pulse Resp B/P (MAP) Pulse Ox O2 Delivery O2 Flow Rate FiO2 06/09/17 11:32 36.3 74 20 133/77 (95) 95 Room Air Notes Mental Status: alert / awake / arousable, participated in evaluation Pt Amnestic to Procedure: Yes Nausea / Vomiting: adequately controlled Pain: adequately controlled Airway Patency, RR, SpO2: stable & adequate BP & HR: stable & adequate Hydration State: stable & adequate Anesthetic Complications: no major complications apparent
[2017-06-09 13:25] VITALS: BP 125/74; PULSE 71; O2SAT 97
== END | disposition home or self-care (01) ==
LOC: X.SURG 10:54
PROVIDERS: ATTEND Ophthalmology
DX: H26.9 Unspecified cataract (principal); M35.3 Polymyalgia rheumatica; M19.90 Unspecified osteoarthritis, unspecified site; Z79.82 Long term (current) use of aspirin; Z88.2 Allergy status to sulfonamides; Z87.891 Personal history of nicotine dependence; Z80.0 Family history of malignant neoplasm of digestive organs; Z96.649 Presence of unspecified artificial hip joint

== ENCOUNTER → 2017-06-30 | Day surgery (SDC) | payer OTHER ==
[2017-06-18 07:37] VITALS: Ht 185.4 cm; Wt 84.1 kg
[~2017-06-30] VITALS: Ht 185.4 cm; Wt 84.1 kg
[~2017-06-30] MED LIST changes: -FENTANYL CITRATE INJ 50 MCG/1 ML 2 ML VIAL ONE; -OCUCOAT 1 ML SOLN IO ONE; +ONDANSETRON INJ 2 MG/ML 2 ML VIAL IV PRN; -PROPARACAINE 0.5% OP SOLN PER DROP CHARGE OPL SCH; +PROPARACAINE 0.5% OP SOLN PER DROP CHARGE OPR SCH; -[UNRECOGNIZED DRUG - OTHER] PO
[2017-06-30] MEDS: PHENYLEPHRINE HCL 2.5% OP SOLN PER DROP CHARGE OPR SCH ×2 (09:41→09:46)
[2017-06-30] MEDS: TROPICAMIDE 1% OP SOLN PER DROP CHARGE OPR SCH ×2 (09:42→09:47)
[2017-06-30] MEDS: CYCLOPENTOLATE HCL 1% OP SOLN PER DROP CHARGE OPR SCH ×2 (09:43→09:48)
[2017-06-30] MEDS: KETOROLAC 0.5% OP SOLN PER DROP CHARGE OPR SCH ×2 (09:44→09:49)
[2017-06-30] MEDS: GATIFLOXACIN OP SOLN PER DROP CHARGE OPR SCH ×2 (09:45→09:57)
--- NOTE | 2017-06-30 10:42 | [facility] Operative Report ---
Operative Report Date of Service June 30, 2017. Operative Report 1. PREOPERATIVE DIAGNOSIS: Cataract of the right eye. 2. POSTOPERATIVE DIAGNOSIS: Same. 3. PROCEDURE: Phacoemulsification with intraocular lens implantation of the right eye. SURGEON: Dr. Arley De. ANESTHESIA: Topical Lidocaine gel, 1% Non- Preserved intracameral Lidocaine, and monitored intravenous sedation. INDICATIONS FOR THE PROCEDURE: The patient is a 76 - year-old male with a history of cataract of the right eye causing significant visual impairment. The details of the proposed procedure were explained to the patient who asked appropriate questions and following discussion of all risks, benefits and alternatives agreed to have the procedure done. 4. OPERATION AND FINDINGS: DESCRIPTION OF PROCEDURE: After informed consent was obtained, the patient was brought to the Operating Room at the [facility]. The patient was placed in a supine position and then the right eye was prepped and draped in the usual sterile fashion for intraocular surgery. A drop of topical Lidocaine gel was placed in the operative eye. A wire lid speculum was then placed in the fornices. A corneal paracentesis was then created temporally. The Non-Preserved Lidocaine was then instilled into the anterior chamber. The anterior chamber was then pressurized with viscoelastic. A 2.0 mm clear corneal incision was then created temporally. A cystotome was inserted into the anterior chamber and used to create a tear in the anterior lens capsule. This capsular tear was then used to create a small flap and the flap was dragged in a counterclockwise direction in order to create a continuous curvilinear capsulorrhexis. Hydrodissection was accomplished with balanced salt solution. Phacoemulsification of the lens nucleus was then performed in a standard [id number] technique. The phaco time was 30 seconds with an average power of 12 %. The remaining cortical material was removed using irrigation aspiration. The capsular bag was then filled with viscoelastic. A Bausch [employer] Lomb MI60L +18.0 diopters lens was then loaded into the injector and injected into the capsular bag. The remaining viscoelastic was removed with the irrigation aspiration handpiece. The wound was hydrated and then checked and found to be watertight. The intraocular pressure was checked and found to be adequate. The wire lid speculum was removed and the patient's face was cleaned and dried. TobraDex ointment was placed in the inferior fornix. The patient was discharged to the Recovery Room having tolerated the procedure well. There were no complications. The patient will be seen tomorrow in the office for follow-up. I attest to the content of the Intraoperative Record and any orders documented therein. Any exceptions are noted below.
--- NOTE | 2017-06-30 10:43 | Discharge Instructions-SurgCtr ---
Discharge Instructions Date of Service June 30, 2017. Visit Reason for Visit: Cataract Right Eye Discharge Discharge Diagnosis / Problem: cataract Discharge Goals Goal(s): Improve function Activity Recommendations Activity Limitations: per Instructions/Follow-up section Anesthesia . Post Anesthesia Instructions: If you have had General Anesthesia or IV Sedation: * Do not drive today. * Resume driving when surgeon permits. * Do not make important decisions or sign legal documents today. * Call surgeon for: 1. Temperature elevations greater than 101 degrees F. 2. Uncontrollable pain. 3. Excessive bleeding. 4. Persistent nausea and vomiting. 5. Medication intolerance (nausea, vomiting or rash). * For nausea and vomiting use only clear liquids such as: tea, soda, bouillon until nausea subsides, then gradually increase diet as tolerated. * If you have any concerns or questions, call your surgeon's office. If physician is unavailable and it is an emergency, call 911 or go to the nearest emergency room. . Diet Recommendations Home Diet: resume previous diet Procedures Procedures Performed: Right Cataract Phacoemulsification With Intraocular Lens Implant Pending Studies Studies pending at discharge: no Medical Emergencies . Who to Call and When: Medical Emergencies: If at any time you feel your situation is an emergency, please call 911 immediately. . Non-Emergent Contact Non-Emergency issues call your: Veneer Sheet Repairer . . "Provider Documentation" section prepared by Arley De. .
[2017-06-30 11:07] VITALS: BP 128/78; PULSE 60; O2SAT 100
--- NOTE | 2017-06-30 11:10 | Anesthesia Progress Nt - [facility] ---
Anesthesia Post Op Note Date & Time June 30, 2017 at 11:10 Vital Signs Pain Intensity: 0 Vital Signs Past 12 Hours Date Time Temp Pulse Resp B/P (MAP) Pulse Ox O2 Delivery O2 Flow Rate FiO2 06/30/17 11:07 60 16 128/78 (95) 100 Room Air 06/30/17 10:48 36.2 65 16 113/72 (86) 95 Room Air 06/30/17 09:32 36.3 69 18 125/74 (91) 96 Room Air Notes Mental Status: alert / awake / arousable, participated in evaluation Pt Amnestic to Procedure: Yes Nausea / Vomiting: adequately controlled Pain: adequately controlled Airway Patency, RR, SpO2: stable & adequate BP & HR: stable & adequate Hydration State: stable & adequate Anesthetic Complications: no major complications apparent
== END | disposition home or self-care (01) ==
LOC: X.SURG 08:50
PROVIDERS: ATTEND Ophthalmology
DX: H26.9 Unspecified cataract (principal); M19.90 Unspecified osteoarthritis, unspecified site; Z79.82 Long term (current) use of aspirin; Z87.891 Personal history of nicotine dependence; Z88.2 Allergy status to sulfonamides; Z98.42 Cataract extraction status, left eye; Z96.643 Presence of artificial hip joint, bilateral

== ENCOUNTER 2020-11-06 05:38 | Inpatient (IN) ==
--- NOTE | 2020-10-25 12:19 | PAT Medication Instructions ---
Medication Instructions Date of Service October 25, 2020 Home Medications ascorbic acid (vitamin C) 500 mg capsule 500 mg PO BID cholecalciferol (vitamin D3) 25 mcg (1,000 unit) capsule (Vitamin D3) 1,000 unit PO DAILY coQ10 (ubiquinol) 100 mg capsule 100 mg PO Q2D acetaminophen 500 mg tablet (Pain Reliever (acetaminophen)) 1,000 mg PO Q8H PRN omega-3 fatty acids 1,000 mg PO DAILY STOP taking 2 weeks before surgery coQ10 (ubiquinol) 100 mg capsule 100 mg PO Q2D omega-3 fatty acids 1,000 mg PO DAILY DO NOT take the morning of surgery ascorbic acid (vitamin C) 500 mg capsule 500 mg PO BID cholecalciferol (vitamin D3) 25 mcg (1,000 unit) capsule (Vitamin D3) 1,000 unit PO DAILY Take morning of surgery With a small sip of water, OTHERWISE NOTHING TO EAT OR DRINK AFTER MIDNIGHT: acetaminophen 500 mg tablet (Pain Reliever (acetaminophen)) 1,000 mg PO Q8H PRN (okay to take up to 4 hours prior to surgery if needed) Take evening before surgery acetaminophen 500 mg tablet (Pain Reliever (acetaminophen)) 1,000 mg PO Q8H PRN (if needed) ascorbic acid (vitamin C) 500 mg capsule 500 mg PO BID Other Notes If you have any questions please call us at [phone] or [phone] or [phone] or [phone]
--- NOTE | 2020-10-26 14:25 | Anesthesiology Consultation ---
Date of Service October 26, 2020 Assessment & Plan (1) Encounter for pre-operative examination: - COVID screening: Per assessment on 10/26: Travel screen negative, no known COVID-19 positive contacts or current COVID-19 related symptoms. Surgeon arrang ing preop COVID testing (scheduled 11/02; [place]- advised pt to go 11/01 if possible d/t proximity of surgery to Labor Day and concern with testing turn-around). Awaiting results. - S/P Left TKA revision (11/26/17): SAB x2 attempts + PNB at [facility] Chart Review Chart Review: Acceptable Risk for Surgery and Patient seen in Pre Admission Testing Teaching & Discussion Pre-Anesthesia Teaching/Discussion Notes: Instructed NPO after midnight before surgery,except medications with 15 cc of water. Medication instructions provided according to the PAT guidelines. History Surgery Operation Date: 11/06/20 12:55 Proposed Procedures p C3-C4 Anterior Cervical Discectomy Fusion Spinal Cord Monitoring - Lino Jung, Height/Weight Height: 6 ft 1 in Weight: 85.5 kg Allergies Allergy/AdvReac Type Severity Reaction Status Date / Time Sulfa (Sulfonamide Allergy Intermediate Arm Verified 10/26/20 08:36 Antibiotics) swelling Medications Home Medications Medication Instructions Recorded Confirmed Last Taken ascorbic acid (vitamin C) 500 mg 500 mg PO BID 11/18/17 10/25/20 09/25/20 07:00 capsule cholecalciferol (vitamin D3) 25 1,000 unit PO DAILY 11/18/17 10/25/20 09/25/20 07:00 mcg (1,000 unit) capsule (Vitamin D3) coQ10 (ubiquinol) 100 mg capsule 100 mg PO Q2D 11/18/17 10/25/20 09/24/20 07:00 acetaminophen 500 mg tablet (Pain 1,000 mg PO Q8H PRN 10/25/20 10/25/20 Unknown Reliever (acetaminophen)) omega-3 fatty acids 1,000 mg PO DAILY 10/25/20 10/25/20 Unknown Past Medical History Medical History Hx of polymyalgia rheumatica Osteoarthritis Exercise / Class Metabolic Activity III < 4 Walking/Shop/Light housework (Uses rollator) Past Family History Family History Mother Family history of diabetes mellitus Past Surgical History Surgical History H/O hemorrhoidectomy History of herniorrhaphy History of total hip arthroplasty Right Hx of colonoscopy Hx of total knee replacement Left knee + revision Left TKA revision (11/26/17): SAB x2 attempts + PNB at [facility] Past Anesthesia History No Hx of Anesthesia Complications and No Family Hx of Anesthesia Complications History of PONV No Hx of PONV and No Hx of Motion Sickness Social History Smoking Status: Former smoker Do You Dip or Chew Tobacco: No Smoking End Date: Quit 30+ years ago Hx Alcohol Use: Yes Alcohol type: beer alcohol intake frequency: 0-2 drinks per day (1 beer/day) Hx Substance Use: No substance use type: does not use Review of Systems Patient denies chest pain, shortness of breath, fever, chills, cough, wheezing, palpitations. Physical Exam Vital Signs VITALS BP 154/66 P 72 TEMP 98.5 SP02 96%RA RESP 18 PHYSICAL Mildly decreased cervical extension range of motion. Full TMJ range of motion. TMD 2.5 finger breaths Mallampati Score 2 Dentition: missing molars, + crowns Lungs: clear throughout to auscultation Cardiac: regular rate and rhythm, no murmurs noted Spine: normal Carotid arteries: negative bruit Extremities: no edema Lab Results Anesthesia Preop Results Results Anesthesia Widget: WBC 7.93 K/uL (4.8-10.8) 10/26/20 Hgb 15.5 g/dL (14.0-18.0) 10/26/20 Hct 44.8 % (42-52) 10/26/20 Plt 128 K/uL (130-400) L 10/26/20 Na 137 mmol/L (136-145) 10/26/20 K 3.8 mmol/L (3.5-5.1) 10/26/20 Cl 106 mmol/L (98-107) 10/26/20 CO2 25 mmol/L (21-32) 10/26/20 BUN 11 mg/dl (7-18) 10/26/20 Creat 0.51 mg/dl (0.6-1.4) L 10/26/20 Glucose Level 106 mg/dl (70-99) H 10/26/20 PT 10.8 Seconds (9.0-12.0) 10/26/20 PTT 27.1 Seconds (21.0-31.0) 10/26/20 INR 1.1 (0.9-1.1) 10/26/20 Urine Color Yellow 10/26/20 Urine Appearance Clear (Clear) 10/26/20 Urine pH 7.5 (4.5-7.5) 10/26/20 Urine Specific [place] 1.015 (1.000-1.030) 10/26/20 Urine Protein Negative (Negative) 10/26/20 Urine Glucose (UA) Negative (Negative) 10/26/20 Urine Ketones Negative (Negative) 10/26/20 Urine Blood Negative (Negative) 10/26/20 Urine Nitrite Negative (Negative) 10/26/20 Urine Bilirubin Negative (Negative) 10/26/20 Urine Urobilinogen Negative (Negative) 10/26/20 Urine Leukocyte Esterase Negative (Negative) 10/26/20 Blood Type A Positive 10/26/20 Antibody Screen NEGATIVE 10/26/20 Testing Electrocardiogram Date: 10/26/20 Normal sinus rhythm at [address]/T wave abnormality. *Poor data quality Chest X-Ray Date: 10/26/20 Findings: + NAD
[2020-11-06] MEDS ORDERED: GABAPENTIN 300 MG CAP PO SCH (06:00)
[2020-11-06] MEDS ORDERED: ACETAMINOPHEN 500 MG TAB PO SCH (06:00)
[2020-11-06] MEDS ORDERED: LR 15ML/HR IV SCH (06:00)
[2020-11-06] MEDS ORDERED: CeleBREX 200 MG CAP PO SCH (06:00)
[2020-11-06] MEDS ORDERED: ceFAZolin 2000MG 2,000 MG/15 ML SYR IV SCH (06:00)
[2020-11-06] MEDS ORDERED: HYDROmorphone INJ 1 MG/ML SYRINGE IV PRN ×2 (06:42→11:06)
[2020-11-06] MEDS ORDERED: ePHEDrine sulfate 50 MG/ML AMP IV PRN (06:42)
[2020-11-06] MEDS ORDERED: fentaNYL citrate 100 MCG/2 ML VIAL IV PRN (06:42)
[2020-11-06] MEDS ORDERED: ONDANSETRON INJ 2 MG/ML 2 ML VIAL IV PRN ×2 (06:42→11:06)
[2020-11-06] MEDS ORDERED: ATROPINE SULFATE 0.1 MG/ML 10ML SYR IV PRN (06:42)
[2020-11-06] MEDS ORDERED: LARYING-O-JET KIT (LTA) ONE (07:16)
[2020-11-06] MEDS ORDERED: PHENYLEPHRINE 100MCG/ML 5ML SYR ONE (07:16)
[2020-11-06] MEDS ORDERED: ONDANSETRON INJ 2 MG/ML 2 ML VIAL ONE (07:16)
[2020-11-06] MEDS ORDERED: PROPOFOL IV EMULSION 10 MG/ML 20 ML VIAL IV ONE (07:16)
[2020-11-06] MEDS ORDERED: DEXAMETHASONE SOD INJ 4 MG/ML VIAL ONE (07:16)
[2020-11-06] MEDS ORDERED: ROCURONIUM BROMIDE 10 MG/ML 5 ML VIAL IV ONE (07:16)
[2020-11-06] MEDS ORDERED: NEOSTIGMINE METHYLSULFATE 1 MG/ML 10ML VIAL ONE (07:16)
[2020-11-06] MEDS ORDERED: SUCCINYLCHOLINE CHLORIDE 20 MG/ML 10 ML VIAL IV ONE (07:16)
[2020-11-06] MEDS ORDERED: LIDOCAINE 2% 2 ML VIAL/AMP(20MG/ML) INFIL ONE (07:16)
[2020-11-06] MEDS ORDERED: ePHEDrine sulfate 50 MG/ML SYR ONE (07:16)
[2020-11-06] MEDS ORDERED: GLYCOPYRROLATE 0.2 MG/ML VIAL ONE (07:16)
[2020-11-06] MEDS ORDERED: fentaNYL citrate 100 MCG/2 ML VIAL ONE (07:17)
--- NOTE | 2020-11-06 07:36 | History & Physical Bridge Note ---
Date of Service November 06, 2020 History & Physical Bridge Note I have examined the patient, reviewed the History & Physical and in the interval since the performance of the History & Physical I have noted the following changes of clinical significance: no changes noted
--- NOTE | 2020-11-06 07:37 | History & Physical Report ---
Date of Service November 06, 2020 Assessment & Plan (1) Myelopathy concurrent with and due to spinal stenosis of cervical region: Plan: C3-C4 anterior cervical discectomy and fusion History of Present Illness Chief Complaint: Neck and arm pain Primary Care Provider: Toy Almanza This is a 80-year-old male presents with chronic persistent neck and arm pain after failing course of nonoperative care is here for surgical invention. Allergies Allergy/AdvReac Type Severity Reaction Status Date / Time Sulfa (Sulfonamide Allergy Intermediate Arm Verified 11/06/20 06:05 Antibiotics) swelling Home Medications Medication Instructions Recorded Confirmed Type ascorbic acid (vitamin C) 500 mg 500 mg PO BID 11/18/17 11/06/20 History capsule cholecalciferol (vitamin D3) 25 1,000 unit PO DAILY 11/18/17 11/06/20 History mcg (1,000 unit) capsule (Vitamin D3) coQ10 (ubiquinol) 100 mg capsule 100 mg PO Q2D 11/18/17 11/06/20 History acetaminophen 500 mg tablet (Pain 1,000 mg PO Q8H PRN 10/25/20 11/06/20 History Reliever (acetaminophen)) omega-3 fatty acids 1,000 mg PO DAILY 10/25/20 11/06/20 History Past Med/Surg History Medical History Hx of polymyalgia rheumatica Osteoarthritis Surgical History H/O hemorrhoidectomy History of herniorrhaphy History of total hip arthroplasty Right Hx of colonoscopy Hx of total knee replacement Left knee + revision Left TKA revision (11/26/17): SAB x2 attempts + PNB at [facility] Family History Mother Family history of diabetes mellitus Social History Smoking Status: Former smoker Smoking End Date: Quit 30+ years ago; Second Hand Exposure: No; Do You Dip or Chew Tobacco: No; Tobacco Cessation Education Requested by Patient: No Hx Alcohol Use: Yes Alcohol type: beer Hx Substance Use: No Preferred Language: Indonesian Communication Ability: Effective Tooth Cutter Contact Wheel Required: No Beliefs That Will Affect Care: None Current Living Situation: Spouse Other Information That Helps Us Care for You: No Feels Safe at Home: Yes Safety Concerns: Feels Safe At This Time Assistive Devices: Walker Physical Exam Physical Exam: Patient is alert and oriented Heart regular in rhythm Lungs clear to auscultation Results & Data ([facility]) Vital Signs (Past 12 Hours) Vital Signs Temp Pulse Resp BP Pulse Ox 11/06/20 06:11 37.0 C 85 8 L 133/76 96
[2020-11-06] MEDS ORDERED: PROPOFOL IV EMULSION 10 MG/ML 100 ML VIAL IV ONE (08:24)
--- NOTE | 2020-11-06 09:23 | Operative Report ---
Post Operative Report Pre & Post Diagnosis Operation Date: 11/06/20 07:45 Pre-Op Diagnosis: Cervical spinal stenosis with myelopathy Post-Op Diagnosis: Same I identified the patient and participated in the time-out.: Yes Procedure Operation Date: 11/06/20 07:45 Actual Procedures #1 anterior cervical discectomy with bilateral foraminotomies C3-C4. #2 anterior cervical arthrodesis C3 and C4. #3 placement of 8 mm spiral cage filled with I factor at C3-C4. #4 application of mathis plate and screw across C3-C4. Surgeon Lino Jung, Flat Sorting Machine Clerk Hillary Lang Estimated Blood Loss 10 Findings Consistent with Post-Op Diagnosis Specimens None Indications This is an 80-year-old male who presents above-mentioned diagnosis after failing course of nonoperative care is here for surgical invention. Description of Procedure Patient was met with identified informed consent obtained. 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 All bony prominences eyes inspected to ensure no external pressure placed upon. This point the anterior cervical spine was prepped and draped in a sterile fashion. The assistance of fluoroscopy identified the C3-C4 disc space and incision was created on the right anterior aspect of the cervical spine overlying this region. Blunt dissection with the assistance of bipolar electrocautery was then performed down to and exposing the anterior cervical spine from C3-C4. Self-retaining retractors placed. A complete discectomy of C3-C4 was then performed up to the uncovertebral joints bilaterally. [place] distracting pins were utilized to assist in visualization. Removed all posterior annular fibers longitudinal ligament bilateral foraminotomies performed for complete decompression. Endplates were then burred to subcortically bone and a 8 mm spiral cage filled with I factor tapped in position. Distracting apparatus was removed and a 5 complete and screws applied with the assistance of fluoroscopy. The incision was then copiously irrigated explored to ensure no damage to surrounding structures remaining bleeding. 15 round MANUEL drain inserted. The incision was then closed with 2 Vicryl in a fashion of 4 Monocryl for final skin closure. Steri-Strip sterile dressings placed. Patient will continue PACU stable condition. Please note spinal cord monitoring was utilized at the procedure and no changes noted. Lastly Hillary Lang was present at the entire procedure involved the patient positioning complex portions of the surgery and final skin closure. I attest to the content of the Intraoperative Record and any orders documented therein. Any exceptions are noted below.
[2020-11-06] MEDS ORDERED: RACEPINEPHRINE 2.25% NEBU SOLN 0.5 ML VIAL INH PRN (11:06)
[2020-11-06] MEDS ORDERED: SOD PHOSPHATE/SOD BIPHOSPHATE ENEMA 132 ML BTL PR PRN (11:06)
[2020-11-06] MEDS ORDERED: METOCLOPRAMIDE HCL INJ 5 MG/ML 2 ML VIAL IV PRN (11:06)
[2020-11-06] MEDS ORDERED: PROMETHAZINE HCL 12.5 MG in SODIUM CHLORIDE 0.9% 50 ML IV PRN (11:06)
[2020-11-06] MEDS ORDERED: ALUMINUM/MAGNESIUM SUSP 30 ML UDC PO PRN (11:06)
[2020-11-06] MEDS ORDERED: DO NOT ADMINISTER PNEUMOCOCCAL VACCINE PRN (11:06)
[2020-11-06] MEDS ORDERED: oxyCODONE HCL IR 5 MG TAB (IMMEDIATE RELEASE) PO PRN (11:06)
[2020-11-06] MEDS ORDERED: traMADol HCL 50 MG TABLET PO PRN (11:06)
[2020-11-06] MEDS ORDERED: ACETAMINOPHEN 1,000 MG/100 ML VIAL IV PRN (11:06)
[2020-11-06] MEDS ORDERED: diphenhydrAMINE Capsule 25 MG CAP PO PRN (11:06)
[2020-11-06] MEDS ORDERED: NON-FORMULARY MEDICATION (Coq10 (Ubiquinol) 100 mg Capsule) PO SCH (11:06)
[2020-11-06] MEDS ORDERED: DO NOT ADMINISTER FLU VACCINE PRN (11:06)
[2020-11-06] MEDS ORDERED: NALOXONE HCL 0.4 MG/1 ML VIAL/CARP IV PRN (11:06)
[2020-11-06] MEDS ORDERED: hydrOXYzine HCl 25 MG TAB PO PRN (11:06)
[2020-11-06] MEDS ORDERED: MAGNESIUM HYDROXIDE SUSP 30 ML UDC PO PRN (11:06)
[2020-11-06] MEDS ORDERED: bisacodyL 10 MG SUPP PR PRN (11:06)
[2020-11-06] MEDS ORDERED: LORazepam 0.5 MG TAB PO PRN (11:06)
[2020-11-06] MEDS ORDERED: FAMOTIDINE 20 MG TAB PO PRN (11:06)
[2020-11-06] MEDS ORDERED: ONDANSETRON 4 MG OD TAB PO PRN (11:06)
[2020-11-06] MEDS ORDERED: dexAMETHasone 8 MG in SYRINGE 0 ML IV PRN (11:06)
[2020-11-06] MEDS ORDERED: LORazepam 0.5 MG/1 ML VIAL IV PRN (11:06)
[2020-11-06] MEDS ORDERED: HYDROmorphone INJ 0.5 MG/0.5 ML SYR IV PRN (11:06)
--- NOTE | 2020-11-06 11:29 | Fluoroscopy Report ---
FL cervical 2-3V CLINICAL HISTORY: C3-C4 ANTERIOR CERVICAL DISCECTOMY FUSION COMPARISON STUDY: None FLUOROSCOPY TIME: 10 seconds. NUMBER OF FLUOROSCOPIC IMAGES: 2 FINDINGS: Operative fluoroscopic images are presented for review and shows ACDF projecting to the anatomical re gion of the anterior upper cervical spine. Partially visualized endotracheal tube is demonstrated. Curvilinear density seen projecting to the anterior neck soft tissue region, seen on lateral view onl y. IMPRESSION: As above. ACT 112: Negative or not required by law. The above report was generated using voice recognition software. It may contain grammatical, syntax o r spelling errors. Electronically signed by: Елена Jones DO 11/06/2020 11:28 AM
--- NOTE | 2020-11-06 12:01 | Hospitalist Consultation ---
Date of Consultation November 06, 2020 Assessment & Plan (1) Myelopathy concurrent with and due to spinal stenosis of cervical region: (2) S/P cervical discectomy: - Pain management, bowel regimen and DVT ppx per the primary team - PT/OT consults - Follow am CBC to monitor for acute blood loss -Last hemoglobin was 15.5 on 10/26 (3) HLD (hyperlipidemia): -Continue COq10 and omega-3 fish oil (4) Hx of polymyalgia rheumatica: -Continue Tylenol as needed - Uses rollator walker at baseline, walks 1/3 mile daily at home. DVT PPx: - teds, scds CODE: Dispo: From home, likely to remain in the hospital x 1-2 days Thank you for involving us in the care of Mr. Lewis. If you have any questions or concerns please do not hesitate to call. At this time medicine will follow along. Supervising Physician Co-Signing Physician Notes Pt is a 80 y/o M admitted for C3-C4 anterior cervical discectomy and fusion Examined the pt with PAC Exam: NAD, b/l lower lobe rales on lung exam Plan: -due to recent surgery will monitor CBC - Incentive zee use - pain management per primary team Agree with PA-C assessment and plan History of Present Illness Reason for Consultation: Medical management Requesting Physician: Dr. Jung Attending Physician: Lino Jung, History of Present Illness This is an 80-year-old male with PMHx of PMR, HLD, osteoarthritis, neuropathy and cervical stenosis who underwent elective ACDF by Dr. Jung on 11/06/2020. He is doing well s/p surgery, denies any pain. Reports feeling some throat discomfort and like he needs to cough, but does not want to cough too hard. He denies any swelling, trouble breathing, or trouble swallowing. He has been taking sips of water without difficulty. Pt reports some improvement of numbness or pain down into his hands/fingers. Reports his last BM was today and has not yet urinated since surgery. Allergies Allergy/AdvReac Type Severity Reaction Status Date / Time Sulfa (Sulfonamide Allergy Intermediate Arm Verified 11/06/20 06:05 Antibiotics) swelling Home Medications Medication Instructions Recorded Confirmed Type ascorbic acid (vitamin C) 500 mg 500 mg PO BID 11/18/17 11/06/20 History capsule cholecalciferol (vitamin D3) 25 1,000 unit PO DAILY 11/18/17 11/06/20 History mcg (1,000 unit) capsule (Vitamin D3) coQ10 (ubiquinol) 100 mg capsule 100 mg PO Q2D 11/18/17 11/06/20 History acetaminophen 500 mg tablet (Pain 1,000 mg PO Q8H PRN 10/25/20 11/06/20 History Reliever (acetaminophen)) omega-3 fatty acids 1,000 mg PO DAILY 10/25/20 11/06/20 History Patient History Medical History (Updated 11/06/20 @ 12:07 by Talia Flowers PA-C) Hx of polymyalgia rheumatica Osteoarthritis Surgical History (Updated 11/06/20 @ 12:07 by Talia Flowers PA-C) H/O hemorrhoidectomy History of herniorrhaphy History of total hip arthroplasty Right Hx of colonoscopy Hx of total knee replacement Left knee + revision Left TKA revision (11/26/17): SAB x2 attempts + PNB at [facility] Family History Mother Family history of diabetes mellitus Social History Smoking Status: Former smoker Smoking End Date: Quit 30+ years ago; Second Hand Exposure: No; Do You Dip or Chew Tobacco: No; Tobacco Cessation Education Requested by Patient: No Hx Alcohol Use: Yes Alcohol type: beer Hx Substance Use: No Preferred Language: Citizen Of [place] Communication Ability: Effective Oil Field 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 Required: No Beliefs That Will Affect Care: None Current Living Situation: Spouse Other Information That Helps Us Care for You: No Feels Safe at Home: Yes Safety Concerns: Feels Safe At This Time Assistive Devices: Walker Review of Systems Review of Systems: Constitutional: No fever, sweats or chills Eyes: No diplopia, no worsening or blurred vision ENT: normal hearing, no trouble swallowing Respiratory: No cough, sputum, dyspnea at rest or on exertion Cardiovascular: No chest pain, tightness or palpitations Abdomen: No pain, nausea, vomiting, diarrhea or constipation Musculoskeletal: No joint pain, calf pain, swelling Neurologic: No weakness, numbness/tingling, or balance problems Psychiatric: No anxiety or depression Skin: No rash or itch Physical Exam Physical Exam: General: awake, alert, no apparent distress Head: Normocephalic, atraumatic ENT: PERRL, EOMI, no pharyngeal exudate, mucous membranes moist, + anterior cervical dressing c/d/i, MANUEL drain in place Chest: + Fine crackles at bases bilaterally, on room air, no adventitious breath sounds Cardiac: Regular rate and rhythm, no murmur, no JVD, normal peripheral pulses, good capillary refill Abdominal: NABS x 4 quadrants, soft, nondistended, nontender to palpation, no rebound or guarding Extremities: Normal inspection, no peripheral edema or erythema, calfs nontender to palpation Psych: Normal mood and affect Neuro: AAO x 3, strength intact bilaterally and rated 5/5, no motor deficits, speech is clear, no peripheral sensory deficits Results & Data Results & Data ([facility]) Vital Signs (Past 12 Hours) Vital Signs Temp Pulse Pulse Resp BP BP Pulse Ox 11/06/20 11:50 74 18 96 11/06/20 10:38 36.4 C L 11/06/20 10:30 36.4 C L 77 16 127/78 95 11/06/20 10:20 76 16 134/69 95 11/06/20 10:10 73 16 112/68 95 11/06/20 10:00 75 16 127/66 95 11/06/20 09:50 74 16 129/61 99 11/06/20 09:40 75 16 132/69 99 11/06/20 09:33 36.0 C L 93 H 16 136/70 98 11/06/20 06:11 37.0 C 85 8 L 133/76 96
--- NOTE | 2020-11-06 12:39 | Anesthesiology Progress Note ---
Date of Service November 06, 2020 Anesthesia Post Procedure Vital Signs Vital Signs: Temp Pulse Pulse Resp BP BP Pulse Ox 11/06/20 11:50 74 18 96 11/06/20 10:38 36.4 C L 11/06/20 10:30 36.4 C L 77 16 127/78 95 11/06/20 10:20 76 16 134/69 95 11/06/20 10:10 73 16 112/68 95 11/06/20 10:00 75 16 127/66 95 11/06/20 09:50 74 16 129/61 99 11/06/20 09:40 75 16 132/69 99 11/06/20 09:33 36.0 C L 93 H 16 136/70 98 11/06/20 06:11 37.0 C 85 8 L 133/76 96 Transfer of Care Handoff Completed per policy Notes Mental Status: alert / awake / arousable and participated in evaluation Patient Amnestic to Procedure: Yes Nausea / Vomiting: adequately controlled Pain: adequately controlled Airway Patency, RR, SpO2: stable & adequate BP & HR: stable & adequate Hydration State: stable & adequate Anesthetic Complications: no major complications apparent and Pt Satisfied with anesthetic care
[2020-11-06] MEDS: LACTATED RINGER'S 1,000 ML IV SCH (18:19)
[2020-11-06] MEDS: ceFAZolin 2000MG 2,000 MG/15 ML SYR IV SCH (19:13)
[2020-11-06] MEDS: dexAMETHasone 6 MG in SYRINGE 0 ML IV SCH (19:13)
[2020-11-06] MEDS: ACETAMINOPHEN 500 MG TAB PO PRN (20:05)
[2020-11-06] MEDS ORDERED: DOCUSATE SODIUM/SENNA 50/8.6MG TAB PO SCH (21:00)
[2020-11-06] MEDS: ASCORBIC ACID 500 MG TAB PO SCH (21:29)
[2020-11-07] MEDS: ceFAZolin 2000MG 2,000 MG/15 ML SYR IV SCH (00:46)
[2020-11-07] MEDS: dexAMETHasone 6 MG in SYRINGE 0 ML IV SCH ×2 (00:46→08:44)
[2020-11-07] MEDS: LACTATED RINGER'S 1,000 ML IV SCH ×2 (03:07→10:24)
[2020-11-07] MEDS: POLYETHYLENE (MIRALAX) 17 GM PACK PO SCH ×2 (05:25→15:40)
[2020-11-07 06:39] LABS: Hematocrit (blood only) 44.6 % (42-52); Hemoglobin 15.3 g/dL (14.0-18.0); Mean Corpuscular Hemoglobin 31.9 pg (25-34); Mean Corpuscular Hgb Conc 34.3 g/dL (32-36); Mean Corpuscular Volume 92.9 fL (80-100); Mean Platelet Volume 9.6 fL (7.4-10.4); Platelet Count 111 K/uL (130-400); RDW Coefficient of Variation 13.5 % (11.5-14.5); RDW Standard Deviation 46.6 fL (36.4-46.3); White Blood Count 9.13 K/uL (4.8-10.8)
[2020-11-07 07:07] LABS: Albumin Level 3.4 gm/dl (3.4-5.0); BUN Creatinine Ratio 22.6 (10-20); Calcium 8.9 mg/dl (8.5-10.1); Creatinine Clr Calc Pharmacy 136.9 ml/min; Est GFR (Non-African American) 103.5 ml/min; Potassium 4.1 mmol/L (3.5-5.1)
[2020-11-07 07:10] LABS: Albumin Globulin Ratio 1.2 (0.9-2); Bilirubin,Total 1.1 mg/dl (0.2-1); Globulin 2.7 gm/dl (2.5-4.0); Total Protein 6.1 gm/dl (6.4-8.2)
[2020-11-07] MEDS: ASCORBIC ACID 500 MG TAB PO SCH (08:45)
[2020-11-07] MEDS ORDERED: CHOLECALCIFEROL 1,000 UNITS 25 MCG TAB PO SCH (09:00)
[2020-11-07] MEDS: ACETAMINOPHEN 500 MG TAB PO PRN (10:23)
--- NOTE | 2020-11-07 10:41 | Discharge Summary ---
Date of Service November 07, 2020 Admission HPI Per Admitting Provider This is a 80-year-old male presents with chronic persistent neck and arm pain after failing course of nonoperative care is here for surgical invention. Principal Diagnosis Cervical spinal stenosis with myeloradiculopathy Discharge Data Allergies Allergy/AdvReac Type Severity Reaction Status Date / Time Sulfa (Sulfonamide Allergy Intermediate Arm Verified 11/06/20 06:05 Antibiotics) swelling Consultations 11/06/20 11:06 Consult Hospitalist Routine Procedures Performed Operation Date: 11/06/20 07:45 Actual Procedures p C3-C4 Anterior Cervical Discectomy Fusion, Spinal Cord Monitoring - Lino Jung DO Ordered Studies 11/06/20 07:45 FL cervical 2-3V Routine Hospital Course (1) Myelopathy concurrent with and due to spinal stenosis of cervical region: Patient went anterior cervical discectomy fusion tolerated this well was taken to orthopedic for postoperative. Postop day #1 he was swallowing well no hoarseness good strength testing MANUEL drain decreasing appropriately. Up and ambulating on his own. Subsequent discharge home. Discharge orders instructions from the chart for further review. Total Time Total Time Spent Total Time Spent (In Minutes): 20 minutes Discharge Plan Discharge Items Patient Disposition: Home - Self-Care Reason For Visit: Spinal Stenosis Cervical Region Discharge Diagnosis: Cervical spinal stenosis with myeloradiculopathy Activity: As commented below Non-emergency contact: Primary Care Provider Call non-emergency contact if: you have any medication questions Follow-up/Referrals: Toy Almanza [Primary Care Provider] - Diet: Regular Addtl Attending Provider Instructions: ACTIVITY RECOMMENDATIONS: SELF CARE INSTRUCTIONS AFTER CERVICAL FUSIONS 1. No smoking. Smoking drastically decreases the chance of a solid fusion. 2. No bending, lifting more than 5 pounds, or twisting (roll like a log when turning in bed). 3. You may shower 3 days after surgery. Thoroughly dry wound. Do not soak in the tub. 4. Cervical collar: Must be worn at all times including sleeping. You may remove the brace only to bath, eat and if you are sitting in a recliner. 5. Please walk as much as you can for exercise. Gradually increase the distance that you walk as your endurance increases. SPECIAL CARE INSTRUCTIONS: VERY IMPORTANT TO READ AND REVIEW A. Do not take any anti-inflammatory medications (i.e. Indocin, Advil, Aspirin, Naprosyn, Aleve, Motrin, etc.) as these may inhibit the chance of a solid fusion. Tylenol is okay to take. B. Your surgical incision has been closed with a cosmetic suture under the skin that will dissolve in about 6 weeks. In 14 days, you can use a pair of clean scissors and cut the suture that is left outside of the skin at the ends of your incision. C. Complications are uncommon, but please contact us if you have any signs or symptoms of: 1. wound infection (fever higher than 102.5 degrees F, redness, separation of wound, drainage, or increasing pain from the incision) 2. blood clots in legs (pain, swelling, redness and warmth in legs) 3. urinary tract infection (fever higher than 102.5 degrees, burning upon urination or increased frequency of urination) 4. nerve problems (inability to walk on your toes or heels, numbness, loss of bowel or bladder control) 5. any other symptoms that concern you. D. Please call the office at if you have any concerns or questions about your operation or recovery. MANAGING PAIN AFTER SPINAL SURGERY 1. Narcotic medication is intended for short-term use and will be provided for surgical pain. Surgical pain usually lasts for a period of 4-6 weeks. Narcotic medication includes Percocet, Vicodin, Darvocet, Tylenol #3 or Lortab. 2. Longer-term pain is more appropriately treated with non-narcotic medication such as Tylenol ES. 3. Muscle spasm is not appropriately treated with narcotics. Muscle relaxers such as Soma, Flexeril or Skelaxin can be used along with Tylenol ES. 4. Remember that we all live with some "aches and pains". This is not unusual or uncommon after an injury or as we get older. 5. We will provide appropriate medication within the normal guidelines of their prescribed use. We will also be very cautious and aware of potential abuse and extended duration of patients' medication needs. 6. Please allow 2-3 days to process refills. Prescriptions will not be mailed but must be picked up at the office. FOLLOW UP VISIT: Keep your scheduled follow-up appointment. Any questions, please call the office at . Pending Studies at Discharge: No Stand-Alone Forms: My [facility], Smoking Cessation Medications and DC Order Prescriptions: New oxycodone 5 mg tablet 5 mg PO Q6H PRN (Reason: pain, severe) Qty: 20 RF: 0 tramadol 50 mg tablet 50 mg PO Q6H PRN (Reason: pain, moderate) Qty: 20 RF: 0 Continued coQ10 (ubiquinol) 100 mg Capsule 100 mg PO Q2D RF: 0 ascorbic acid (vitamin C) 500 mg Capsule 500 mg PO BID RF: 0 cholecalciferol (vitamin D3) [Vitamin D3] 1,000 unit Capsule 1,000 unit PO DAILY RF: 0 omega-3 fatty acids Capsule 1,000 mg PO DAILY RF: 0 acetaminophen [Pain Reliever (acetaminophen)] 500 mg tablet 1,000 mg PO Q8H PRN (Reason: Pain) RF: 0 Discharge Orders: Discharge Order (Routine); Ordered 11/07/20 Ordered By: Lino Jung Admission Data Admit Date/Time: 11/06/20 09:30 Attending Provider: Lino Jung Admit Provider: Lino Jung Primary Care Provider: Toy Almanza Other Providers: Joe Bowden
--- NOTE | 2020-11-07 20:47 | Hospitalist Progress Note ---
Date of Service November 07, 2020 Assessment & Plan (1) Myelopathy concurrent with and due to spinal stenosis of cervical region: (2) S/P cervical discectomy: Plan: - Pain management, bowel regimen and DVT ppx per the primary team - PT/OT consults -Hemoglobin stable (3) HLD (hyperlipidemia): Plan: -Continue COq10 and omega-3 fish oil (4) Hx of polymyalgia rheumatica: Plan: -Continue Tylenol as needed - Uses rollator walker at baseline, walks 1/3 mile daily at home. DVT PPx: - teds, scds Thank you for involving us in the care of Mr. Lewis. If you have any questions or concerns please do not hesitate to call. At this time medicine will follow along. Admission and Anticipated Discharge Date Admission Date: November 06, 2020 Subjective Patient sitting up in bed, cervical MANUEL drain in situ, NAD, on room air. No issues overnight. No bowel movement or gas since after surgery. Distal neurovascular status normal. Denies any other review of symptoms. Physical Exam Physical Exam: GENERAL: Alert and oriented x3. NAD, on RA. HEENT: No pallor, no icterus. Pupils equal, round and reactive to light. Oral mucosa moist. NECK: No JVD, no neck masses. MANUEL drain in situ HEART: S1 and S2 heard. Regular rate and rhythm. No murmur, no gallop. RESPIRATORY SYSTEM: Normal AP diameter. No accessory muscle use. No wheezing, no crackles. ABDOMEN: Soft, bowel sounds present, nontender, no distention. CENTRAL NERVOUS SYSTEM: Alert and oriented x3. No facial droop. Speech is clear. Obeys simple commands. Moves extremities. EXTREMITIES: No edema, no erythema seen. Distal neurovascular status normal Results & Data Results & Data ([facility]) Vital Signs (Past 12 Hours) Vital Signs Temp Pulse Resp BP Pulse Ox 11/07/20 15:04 36.6 C 90 16 147/71 H 96 11/07/20 14:12 36.6 C 90 16 147/71 H 96 11/07/20 11:00 82 16 96 11/07/20 10:06 36.6 C 84 16 129/67 94
== END 2020-11-07 15:33 | disposition home or self-care (01) | DRG 472 ==
LOC: ASU 05:38 → 3E 09:30

== ENCOUNTER 2020-11-11 04:05 | Inpatient (IN) ==
--- NOTE | 2020-11-11 04:36 | Emergency Department Note ---
Impression & Plan Facial droop, Swallowing dysfunction ED Provider Note Name: JELLY PHILLIPS Age: 80 Sex: M Arrives Via: Ambulance Informant: Patient, EMS ED Provider: Lele Rodrigues MD Chief Complaint: Swallowing difficulty Impression: As above Medical Decision Makin yr old male with recent Anterior neck fusion arrives with 2 days of left facial droop and difficulty swallowing. He clearly is having difficulty tolerating secretions. Neck without clear evidence of hematoma by exam. He is breathing OK just keeps having to spit up secretions. Neuro intact otherwise besides his baseline mild leg/arm ataxia which has been ongoing for quite some time and actually mildly improved post operatively. He has been unable to eat/drink well the last few days. CTA Head/Neck obtained without large hematoma nor clear fluid collection. Approach was right sided that unusual that left lower face seems to be affected. Would presume this is stroke related though with no other deficits this too seems unusual. Hold any anticoagulation given recenter cervical surgery. Reviewed with surgeon who will evaluate as inpatient though requests Hospitalist admit given multiple other issues. Patient agreeable to this plan and I did make it clear my concerns but need for further work-up. Patient kept NPO throughout stay. At request of surgeon I did remove collar which seems to help swallowing somewhat. Prior Medical Record and Triage/Nursing Notes reviewed by Me Additional history obtained from chart and surgeon Differentials:Infection, Bleeding, nerve injury, stroke, dehydration, metabolic abnormality, hypo/hyperglycemia, electrolyte disturbance, anemia, hypoxia, cardiac sources, intracerebral event, toxicologic, neurologic, as well as other pathologies. Vital Signs: reviewed and remarkable for no significant abnormalities Labs:Reviewed and remarkable for no significant abnormalities Imaging:[facility] Radiologist interpretation reviewed by me: "CTA HEAD: Noncontrast: No evidence of acute intracranial abnormality. Volume loss and small vessel disease. No occlusion or severe stenosis. No aneurysm or dissection. CTA NECK: Fluoroscopy cervical on 11/06/20 No occlusion or severe stenosis. No aneurysm or dissection C3-4 ACDF Soft tissue swelling and effacement of the fat planes in the prevertebral soft tissues and deep spaces of the neck at the level of the ACDF. May reflect recent postoperative changes. DDX includes infectious/inflammatory process or hematoma. Correlate clinically Curvilinear hyperdensity anterior to the right common carotid artery at approximately hyoid bone level. Appears denser than vascular structures. May relate to recent postoperative changes Radiologist: Avanee Peel, M.D." EKG:Per My Interpretation: Indication Stroke like symptoms: NSR 92 bpm, qtc 437 with PVC. No Ischemia. Compared to EKG 10/26/20, no significant changes. Cardiac/Tele Monitoring: Cardiac Monitoring: An Order was placed for continuous cardiac monitoring. The monitor shows a rate of 80 with a normal sinus rhythm. Consults:Dr Jung Ortho Spine, Dr Kal Patel Hospitalist Plan: Disposition:Hospitalization. Condition: Good History of Present Illness:80 yr old male arrives for evaluation of swallowing difficulty. Patient with anterior cervical fusion 1 week ago. Notes some mild throat discomfort and cough post operatively but states feeling well. On getting home he notes that he has had left facial weakness. This is associated with drooling, difficulty swallowing, and feeling unbalanced when he walks. Associated with mild sore throat still. The last day worsening cough, and feeling short of breath. No fevers, chillss, nausea, vomiting syncope, chest pain, abdominal pain, back pain, urinary/bowel symptoms, leg swelling, rashes, nor other symptoms. Denies neck swelling at this time nor bleeding. No medications prior to arrival. No history of stroke, cva, mi, afib. Denies trauma, injuries, falls. No medications prior to arrival. Sitting up makes better, laying down makes worse. ROS: See above HPI for pertinent positives & negatives. A total of 10 systems reviewed and were otherwise negative. Past Medical History:See Below Past Surgical History:See Below Family History:See Below Social History:See Below Home Medications:See Below Allergies:Sulfa Vitals:Blood Pressure: 147/82, Pulse 92, RR 18, T 36.9C, O2 96% on RA Physical Exam: GENERAL: Patient is tired/dehydrated appearing and in minimal distress. Keeps spitting up saliva EYES: No scleral icterus, unremarkable pupils. ENT: Mucous membranes moist, no nasal congestion. NECK: Wearing cervical collar. Right surgical site healing well, minimal swelling, no drainage, no cellulitis. No tracheal deviation. RESPIRATORY: Upper airway noises without dyspnea. Clear to auscultation and equal bilaterally. No wheeze, no rhonchi. CARDIOVASCULAR: Regular rate and rhythm.No murmurs, rubs, gallops appreciated. GASTROINTESTINAL: Abdomen soft, non-tender, no peritonitis.Bowel sounds positive.No masses appreciated. BACK: No midline tenderness, no CVA tenderness EXTREMITIES: Normal motion all extremities, no cyanosis, no edema. NEUROLOGIC: Alert and oriented, no acute motor or sensory deficits, no focal weakness, left lower facial droop, otherwise cranial nerves grossly intact. SKIN: No rash, no jaundice, no diaphoresis. PSYCH: Appropriate GCS: 15 ED Course: Times/Reassessments: Stable, feeling a bit better with collar removed Lele Rodrigues MD Past Med/Surg History Medical History Hx of polymyalgia rheumatica Osteoarthritis Surgical History H/O hemorrhoidectomy History of cervical spinal surgery 11/06/[address] Jung History of herniorrhaphy History of total hip arthroplasty Right Hx of colonoscopy Hx of total knee replacement Left knee + revision Left TKA revision (11/26/17): SAB x2 attempts + PNB at [facility] Family History Mother Family history of diabetes mellitus Social History Smoking Status: Never smoker Second Hand Exposure: No; Hx Alcohol Use: Yes Alcohol type: beer Alcohol type Comment: daily, last before 11/06 Hx Substance Use: No Preferred Language: Wolof Communication Ability: Effective [employer] Required: No Beliefs That Will Affect Care: None marital status: Current Living Situation: Spouse Other Information That Helps Us Care for You: No Feels Safe at Home: Yes Safety Concerns: Feels Safe At This Time Assistive Devices: Walker Allergies Allergies Allergy/AdvReac Type Severity Reaction Status Date / Time Sulfa (Sulfonamide Allergy Intermediate Arm Verified 11/06/20 06:05 Antibiotics) swelling Home Meds Home Medications Medication Instructions Recorded Confirmed ascorbic acid (vitamin C) 500 mg 500 mg PO BID 11/18/17 11/11/20 capsule cholecalciferol (vitamin D3) 25 1,000 unit PO DAILY 11/18/17 11/11/20 mcg (1,000 unit) capsule (Vitamin D3) coQ10 (ubiquinol) 100 mg capsule 100 mg PO Q2D 11/18/17 11/11/20 acetaminophen 500 mg tablet (Pain 1,000 mg PO Q8H PRN 10/25/20 11/11/20 Reliever (acetaminophen)) fish,flax,primrose,borag 1 cap PO DAILY 11/11/20 11/11/20 oils-om3,6,9 no5 400 mg-400 mg-200 mg capsule ([place] 3-6-9 Fatty Acids) Previous Rx's Medication Instructions Recorded oxycodone 5 mg tablet 5 mg PO Q6H PRN #20 tab 11/07/20 tramadol 50 mg tablet 50 mg PO Q6H PRN #20 tab 11/07/20 Results & Data (ED) Vital Signs Vital Signs - 24 hr 11/11/20 04:00 Temperature 36.9 C Temperature Source Oral Pulse Rate 92 H Pulse Strength Normal Respiratory Rate 18 Respiratory Effort / Characteristics Non-Labored Spontaneous Respiratory Pattern Regular Blood Pressure 147/82 H Blood Pressure Mean 103 Pulse Oximetry 96 Oxygen Delivery Method Room Air Sepsis Recent Fever Within 48 Hours No Sepsis New/Unexplained Change in Mental Status N/A Sepsis Action Taken by Nursing No Action Required Laboratory Data Result diagrams: 11/12/20 06:14 11/12/20 06:14 Lab Results 11/11/20 11/11/20 11/11/20 Range/Units 04:40 04:40 04:40 WBC 14.74 H (4.8-10.8) K/uL RBC 4.98 (4.7-6.1) M/uL Hgb 16.0 (14.0-18.0) g/dL POC Hgb (14.0-18.0) g/dl Hct 45.8 (42-52) % POC Hct (42-52) % MCV 92.0 (80-100) fL MCH 32.1 (25-34) pg MCHC 34.9 (32-36) g/dL RDW Std Deviation 44.2 (36.4-46.3) fL RDW Coeff of Liliam 13.2 (11.5-14.5) % Plt Count 129 L (130-400) K/uL MPV 9.6 (7.4-10.4) fL Neutrophils % (Manual) 54.8 % Lymphocytes % (Manual) 10.4 % Reactive Lymphs % (Man) 31.3 % Monocytes % (Manual) 3.5 % Neutrophils # (Manual) 8.08 H (1.4-6.5) K/uL Total Absolute Neuts 8.08 H (1.4-6.5) K/uL Lymphocytes # (Manual) 1.53 (1.2-3.4) K/uL Reactive Lymphs # 4.61 K/uL Total Abs Lymphocytes 6.15 H (1.2-3.4) K/uL Monocytes # (Manual) 0.52 (0.11-0.59) K/uL Blood Smear Review RBC Morphology Unremarkable PT 11.0 (9.0-12.0) Seconds INR 1.1 (0.9-1.1) APTT 29.2 (21.0-31.0) Seconds PTT Ratio 1.1 POC Sodium (135-144) mmol/L Sodium 132 L (136-145) mmol/L POC Potassium (3.3-5.0) mmol/L Potassium 4.2 (3.5-5.1) mmol/L POC Chloride (101-112) mmol/L Chloride 99 (98-107) mmol/L Carbon Dioxide 26 (21-32) mmol/L POC Total CO2 (24-31) mmol/L Anion Gap 7.0 (3-11) POC Anion Gap (16-25) mmol/L POC BUN (7-18) mg/dl BUN 16 (7-18) mg/dl Creatinine 0.39 L (0.6-1.4) mg/dl POC Creatinine (0.6-1.3) mg/dl Est Cr Clr Drug Dosing 165.0 ml/min Est GFR ( Amer) 129.5 ml/min Est GFR (Non-Af Amer) 111.8 ml/min BUN/Creatinine Ratio 41.1 H (10-20) Glucose 103 H (70-99) mg/dl POC Glucose (other) (70-99) mg/dl Calcium 8.7 (8.5-10.1) mg/dl POC Ioniz Calcium Abimael (1.12-1.32) mmol/l Magnesium 2.0 (1.8-2.4) mg/dl Total Bilirubin 2.7 H (0.2-1) mg/dl Direct Bilirubin 0.6 H (0-0.2) mg/dl AST 24 (15-37) U/L ALT 26 (12-78) U/L Alkaline Phosphatase 68 (45-117) U/L Troponin I < 0.015 (0-0.045) ng/ml NT-Pro-B Natriuret Pep (0-1800) pg/ml Total Protein 6.5 (6.4-8.2) gm/dl Albumin 3.7 (3.4-5.0) gm/dl Lipase 112 (73-393) U/L Procalcitonin COVID-19 Eval Order SARS-CoV-2 (PCR) (Negative) 11/11/20 11/11/20 11/11/20 Range/Units 04:40 04:40 04:50 WBC (4.8-10.8) K/uL RBC (4.7-6.1) M/uL Hgb (14.0-18.0) g/dL POC Hgb 15.6 (14.0-18.0) g/dl Hct (42-52) % POC Hct 46 (42-52) % MCV (80-100) fL MCH (25-34) pg MCHC (32-36) g/dL RDW Std Deviation (36.4-46.3) fL RDW Coeff of Liliam (11.5-14.5) % Plt Count (130-400) K/uL MPV (7.4-10.4) fL Neutrophils % (Manual) % Lymphocytes % (Manual) % Reactive Lymphs % (Man) % Monocytes % (Manual) % Neutrophils # (Manual) (1.4-6.5) K/uL Total Absolute Neuts (1.4-6.5) K/uL Lymphocytes # (Manual) (1.2-3.4) K/uL Reactive Lymphs # K/uL Total Abs Lymphocytes (1.2-3.4) K/uL Monocytes # (Manual) (0.11-0.59) K/uL Blood Smear Review RBC Morphology PT (9.0-12.0) Seconds INR (0.9-1.1) APTT (21.0-31.0) Seconds PTT Ratio POC Sodium 132 L (135-144) mmol/L Sodium (136-145) mmol/L POC Potassium 4.3 (3.3-5.0) mmol/L Potassium (3.5-5.1) mmol/L POC Chloride 94 L (101-112) mmol/L Chloride (98-107) mmol/L Carbon Dioxide (21-32) mmol/L POC Total CO2 24 (24-31) mmol/L Anion Gap (3-11) POC Anion Gap 19.0 (16-25) mmol/L POC BUN 18 (7-18) mg/dl BUN (7-18) mg/dl Creatinine (0.6-1.4) mg/dl POC Creatinine 0.3 L (0.6-1.3) mg/dl Est Cr Clr Drug Dosing ml/min Est GFR ( Amer) ml/min Est GFR (Non-Af Amer) ml/min BUN/Creatinine Ratio (10-20) Glucose (70-99) mg/dl POC Glucose (other) 105 H (70-99) mg/dl Calcium (8.5-10.1) mg/dl POC Ioniz Calcium Abimael 1.14 (1.12-1.32) mmol/l Magnesium (1.8-2.4) mg/dl Total Bilirubin (0.2-1) mg/dl Direct Bilirubin (0-0.2) mg/dl AST (15-37) U/L ALT (12-78) U/L Alkaline Phosphatase (45-117) U/L Troponin I (0-0.045) ng/ml NT-Pro-B Natriuret Pep 530 (0-1800) pg/ml Total Protein (6.4-8.2) gm/dl Albumin (3.4-5.0) gm/dl Lipase (73-393) U/L Procalcitonin Cancelled COVID-19 Eval Order SARS-CoV-2 (PCR) (Negative) 11/11/20 11/11/20 Range/Units 07:20 07:20 WBC (4.8-10.8) K/uL RBC (4.7-6.1) M/uL Hgb (14.0-18.0) g/dL POC Hgb (14.0-18.0) g/dl Hct (42-52) % POC Hct (42-52) % MCV (80-100) fL MCH (25-34) pg MCHC (32-36) g/dL RDW Std Deviation (36.4-46.3) fL RDW Coeff of Liliam (11.5-14.5) % Plt Count (130-400) K/uL MPV (7.4-10.4) fL Neutrophils % (Manual) % Lymphocytes % (Manual) % Reactive Lymphs % (Man) % Monocytes % (Manual) % Neutrophils # (Manual) (1.4-6.5) K/uL Total Absolute Neuts (1.4-6.5) K/uL Lymphocytes # (Manual) (1.2-3.4) K/uL Reactive Lymphs # K/uL Total Abs Lymphocytes (1.2-3.4) K/uL Monocytes # (Manual) (0.11-0.59) K/uL Blood Smear Review RBC Morphology PT (9.0-12.0) Seconds INR (0.9-1.1) APTT (21.0-31.0) Seconds PTT Ratio POC Sodium (135-144) mmol/L Sodium (136-145) mmol/L POC Potassium (3.3-5.0) mmol/L Potassium (3.5-5.1) mmol/L POC Chloride (101-112) mmol/L Chloride (98-107) mmol/L Carbon Dioxide (21-32) mmol/L POC Total CO2 (24-31) mmol/L Anion Gap (3-11) POC Anion Gap (16-25) mmol/L POC BUN (7-18) mg/dl BUN (7-18) mg/dl Creatinine (0.6-1.4) mg/dl POC Creatinine (0.6-1.3) mg/dl Est Cr Clr Drug Dosing ml/min Est GFR ( Amer) ml/min Est GFR (Non-Af Amer) ml/min BUN/Creatinine Ratio (10-20) Glucose (70-99) mg/dl POC Glucose (other) (70-99) mg/dl Calcium (8.5-10.1) mg/dl POC Ioniz Calcium Abimael (1.12-1.32) mmol/l Magnesium (1.8-2.4) mg/dl Total Bilirubin (0.2-1) mg/dl Direct Bilirubin (0-0.2) mg/dl AST (15-37) U/L ALT (12-78) U/L Alkaline Phosphatase (45-117) U/L Troponin I (0-0.045) ng/ml NT-Pro-B Natriuret Pep (0-1800) pg/ml Total Protein (6.4-8.2) gm/dl Albumin (3.4-5.0) gm/dl Lipase (73-393) U/L Procalcitonin COVID-19 Eval Order Covid19 at [facility] SARS-CoV-2 (PCR) NEGATIVE (Negative) Administered Medications Sodium Chloride (Nss 1000ml) 1,000 mls @ 100 mls/hr IV .Q10H VALE Stop: 12/11/20 11:50 Last Admin: 11/12/20 07:48 Dose: 100 mls/hr Documented by: [id number] Infusion: 11/12/20 07:12 Dose: 100 mls/hr Documented by: [id number] Admin: 11/11/20 21:12 Dose: 100 mls/hr Documented by: [id number] Infusion: 11/11/20 21:12 Dose: 100 mls/hr Documented by: [id number] Admin: 11/11/20 12:05 Dose: 100 mls/hr Documented by: [id number] Acetaminophen (Ofirmev) 1,000 mg in 100 mls @ 400 mls/hr IV Q12 VALE Stop: 11/14/20 20:59 Last Infusion: 11/12/20 08:33 Dose: 0 mls/hr Documented by: [id number] Admin: 11/12/20 07:58 Dose: 400 mls/hr Documented by: [id number] Infusion: 11/11/20 22:08 Dose: 0 mls/hr Documented by: [id number] Admin: 11/11/20 21:11 Dose: 400 mls/hr Documented by: [id number] Dexamethasone 8 mg/ Syringe 2 mls @ 1 mls/min IV Q8H VALE Stop: 12/11/20 11:59 Last Admin: 11/12/20 04:19 Dose: 1 mls/min Documented by: [id number] Admin: 11/11/20 21:11 Dose: 1 mls/min Documented by: [id number] Admin: 11/11/20 14:01 Dose: 1 mls/min Documented by: [id number] Discontinued Medications Gadobutrol (Gadobutrol 10ml Vial) 8 ml IV ONCE ONE Stop: 11/11/20 10:06 Last Admin: 11/11/20 10:06 Dose: 8 ml Documented by: [id number] Ioversol (Optiray 320 125ml) 120 ml IV ONCE ONE Stop: 11/11/20 04:48 Last Admin: 11/11/20 04:47 Dose: 120 ml Documented by: [id number] Discharge Plan Visit Data Chief Complaint: Weakness Stated Complaint: COUGH; TROUBLE GETTING AROUND POST BACK SURG. ED Provider: Lele Rodrigues Discharge Problem: Facial droop, Swallowing dysfunction Patient Disposition: Admitted As Inpatient Discharge Instructions Interventions: ED Discharge Assessment Last Done: 11/11/20 11:00
[2020-11-11] MEDS ORDERED: OPTIRAY 320 125ml IV ONE (04:47)
[2020-11-11 05:03] LABS: Hematocrit (blood only) 45.8 % (42-52); Mean Corpuscular Hemoglobin 32.1 pg (25-34); Mean Corpuscular Hgb Conc 34.9 g/dL (32-36); Mean Platelet Volume 9.6 fL (7.4-10.4); Platelet Count 129 K/uL (130-400); RDW Coefficient of Variation 13.2 % (11.5-14.5); RDW Standard Deviation 44.2 fL (36.4-46.3); Red Blood Count 4.98 M/uL (4.7-6.1); White Blood Count 14.74 K/uL (4.8-10.8)
[2020-11-11 05:05] LABS: iSTAT Creatinine 0.3 mg/dl (0.6-1.3); iSTAT Hemoglobin 15.6 g/dl (14.0-18.0); iSTAT Ionized Calcium 1.14 mmol/l (1.12-1.32); iSTAT Potassium 4.3 mmol/L (3.3-5.0)
[2020-11-11 05:18] LABS: INR 1.1 (0.9-1.1); Partial Thromboplastin Ratio 1.1; Partial Thromboplastin Time 29.2 Seconds (21.0-31.0)
[2020-11-11 05:25] LABS: Alanine Aminotransferase 26 U/L (12-78); Albumin Level 3.7 gm/dl (3.4-5.0); Aspartate Aminotransferase 24 U/L (15-37); BUN Creatinine Ratio 41.1 (10-20); Bilirubin Direct 0.6 mg/dl (0-0.2); Blood Urea Nitrogen 16 mg/dl (7-18); Calcium 8.7 mg/dl (8.5-10.1); Carbon Dioxide 26 mmol/L (21-32); Chloride 99 mmol/L (98-107); Est GFR (African American) 129.5 ml/min; Est GFR (Non-African American) 111.8 ml/min; Glucose 103 mg/dl (70-99); Lipase 112 U/L (73-393); Potassium 4.2 mmol/L (3.5-5.1); Sodium 132 mmol/L (136-145)
[2020-11-11 05:30] LABS: Alkaline Phosphatase 68 U/L (45-117); Bilirubin,Total 2.7 mg/dl (0.2-1); Total Protein 6.5 gm/dl (6.4-8.2); Troponin I < 0.015 ng/ml (0-0.045)
[2020-11-11 05:43] LABS: ALC (manual) 6.15 K/uL (1.2-3.4); ANC (manual) 8.08 K/uL (1.4-6.5); Lymphocytes # (manual) 1.53 K/uL (1.2-3.4); Lymphocytes % (manual) 10.4 %; Monocytes # (manual) 0.52 K/uL (0.11-0.59); Monocytes % (manual) 3.5 %; Neutrophils # (manual) 8.08 K/uL (1.4-6.5); Neutrophils % (manual) 54.8 %; RBC Morphology Unremarkable; Reactive Lymphocytes # (manual) 4.61 K/uL; Reactive Lymphocytes % (manual) 31.3 %
--- NOTE | 2020-11-11 08:08 | CT Scan Report ---
CT angio neck with con, CT angio head wo/w CLINICAL HISTORY: 80 years-old Male with left facial weakness. Acute strokelike symptoms with left -sided facial weakness COMPARISON STUDY: Fluoroscopic images of the cervical spine 11/06/2020. TECHNIQUE: Following the IV administration of 120 mL of Optiray, CT angiogram of the head and neck wa s performed from the aortic arch to the skull base. Images are reviewed in the axial, sagittal, and c oronal planes. 3-D MIPS images are created and assessed. IV contrast was administered without complic ation. All measurements were calculated based on NASCET criteria. Noncontrast head CT was also obtain ed. A dose lowering technique was utilized adhering to the principles of ALARA. CT DOSE: 1125.15 mGy.cm FINDINGS: CT HEAD: Age-related involutional changes. Extensive white matter hypodensities suggestive of chronic microvas cular ischemic disease. Cerebral vascular calcifications. No acute intracranial hemorrhage, midline s hift, abnormal extra-axial collection, hydrocephalus, intracranial mass or acute territorial infarct. No acute calvarial fracture. Mastoid air cells are clear. Small air-fluid levels within the maxillar y sinuses. Unremarkable soft tissues. Prior bilateral lens repair. CTA HEAD AND NECK: Moderate atherosclerosis of the thoracic aortic arch. Patency of the innominate and imaged subclavian arteries. The common carotid arteries are widely patent. Mild atherosclerotic plaque of the left gre ater the right carotid bulb results in less than 50% luminal narrowing bilaterally. Atherosclerotic p laque at the origin of the left vertebral artery causes mild stenosis. The left vertebral artery is d ominant. The middle and anterior cerebral arteries are patent. Hypoplastic right A1 segment is likely developmental. The basilar and posterior cerebral arteries are patent. Cerebral venous sinuses are p atent. There is no abnormal intracranial enhancement. Anterior plate and screw fusion with discectomy at C3-C4. The hardware appears intact. 4 mm anterolis thesis C3 on C4 with 2 mm anterolisthesis C4 on C5. Severe C5-C6 intervertebral disc space narrowing with spondylitic spurring. Mild wedge deformity at T1 is likely chronic. Severe multilevel facet arth rosis. 1.4 x 0.6 x 0.7 cm hyperattenuating focus is noted within the prevertebral tissues anterior to the C4 vertebral body on image 164 series 6 with similar appearing subcentimeter material noted with in the right neck superficial to the right internal carotid artery on image 140 series 6. Moderate pr evertebral edema with 3.5 x 0.9 x 3.2 cm prevertebral collection centered at the C3-C4 level. The air way is patent. Mild wall thickening of the epiglottis is likely reactive. Multinodular thyroid. Lung apices are clear without pneumothorax. IMPRESSION: 1. Atherosclerotic vascular disease. No aneurysm, dissection, high-grade stenosis or arterial occlusi on. 2. Postoperative changes of recent anterior plate and screw fusion with discectomy at C3-C4. The hard arredondo appears intact and there is 4 mm anterolisthesis C3 on C4. 3. Moderate prevertebral edema with ill-defined 3.5 x 0.9 x 3.2 cm prevertebral collection extending from C3-C5 suggestive of a probable postoperative seroma or hematoma. This contains a 1.4 cm hyperatt enuating focus which may represent packing material. Correlate with surgical history. 4. No acute intracranial abnormality. 5. Additional findings as above. ACT 112: Negative or not required by law. The above report was generated using voice recognition software. It may contain grammatical, syntax o r spelling errors. Electronically signed by: Mathew Fracno M.D. 11/11/2020 8:07 AM
--- NOTE | 2020-11-11 09:16 | XRay Report ---
XR chest 1V portable HISTORY: Cough. Shortness of breath. COMPARISON: Chest 10/26/2020. FINDINGS: The lungs are clear. Cardiac silhouette is normal in size. No pleural effusions. No pneumot horax. IMPRESSION: No acute process. ACT 112: Negative or not required by law. Electronically signed by: Erick Albarado M.D. 11/11/2020 9:14 AM
--- NOTE | 2020-11-11 09:34 | History & Physical Report ---
Date of Service November 11, 2020 Assessment & Plan (1) Facial droop: (2) Cough: (3) S/P cervical discectomy: (4) Hx of polymyalgia rheumatica: (5) Myelopathy concurrent with and due to spinal stenosis of cervical region: (6) DVT prophylaxis: Plan: This is a 80-year-old male who has significant past medical history of PMR, chronic inflammatory polyneuropathy, cervical spinal stenosis, HLD who presents to ED secondary to cough x4 to 5 days. S/P ACDF C3-C4 by Dr. Jung on 11/06, POD #5. Now with persistent cough since discharge resulting in inability to swallow, poor po intake. Pt also noted R sided facial droop 2 days ago, no other new focal weakness. Stroke w/u initated in ED. CTA Head/Neck negative for acute intracranial abnormality. Fail dysphagia screen due to facial droop Facial droop admit to PCU TPA contraindicated given duration of symptom/recent surgery obtain MRI, echocardiogram a1c, lipids in a.m. consult neurology - pt requesting [facility], will only see Dr. Cordero with [facility] once NPO status lifted consider adding lipitor, asa PT/OT/ST consulted IVF 100cc/hr while NPO fall/aspiration/neuropathy precautions Cough ? if 2/2 to post op state and neck surgery consider anti tussive when able to tolerate po cxr negative for pna, obtain procalcitonin, pro bnp aspiration precautions flutter valve Leukocytosis/Absolute lymphocytosis peripheral smear is pending no prior hx of CLL or malignancy, previous white count unremarkable S/P ACDF C3-C4 POD #[address] Jung Myelopathy due to cervical spine stenosis consult orthopedic spine for post op evaluation c collar when out of bed IV APAP BID per pt request, will avoid narcotics at his request PT/OT CIDP (Chronic inflammatory demyelinating polyneuropathy) follows Dr. Cordero, underwent rheum w/u which was negative plan is for possible IVIG in future; if sx are not improved with ACDF Dispo: PCU DNR/DNI PCP: Chava Zamorano Pt was seen and examined in collaboration with Dr. Bowden, please see addendum Pt Katie Lewis updated by phone, , and wishes to be provided updates. History of Present Illness Chief Complaint: Cough x4 to 5 days. Primary Care Provider: Toy Almanza This is a 80-year-old male who has significant past medical history of PMR, chronic inflammatory polyneuropathy, cervical spinal stenosis, HLD who presents to ED secondary to cough x4 to 5 days. Of significance over the past 2 months patient has been worked up by neurology due to a chronic inflammatory polyneuropathy. During work-up evaluation of cervical spine revealed severe stenosis of C3-C4. He was seen and evaluated by [facility] and underwent ACDF of C3-C4 on 11/06. He tolerated procedure well and blood loss was approximately 10 mL. He was discharged to home doing well. On discharge day #1 he developed a cough that occurred whenever he would eat or drink anything. Over the past 4 to 5 days he has had minimal intake due to everything he tries to take causes a coughing fit. Cough has been wet but is been unable to produce until today. Today he is producing clear foamy sputum. He also has hoarseness. He denies any neck pain and has been able to control pain with Tylenol. Also approximately 2 days ago he noticed a right-sided facial droop. He denies any excessive drooling or food coming out right side of mouth. He denies crystal difficulty swallowing, but attributes his difficulty swallowing due to coughing reflex. He denies any fever, chills, sweats, lightheadedness, dizziness, chest pain, shortness breath at rest, nausea, vomiting, abdominal pain, dysuria, increased urinary urgency and frequency, melena or hematochezia. He did state pain medications did cause urinary hesitancy and therefore he stopped narcotics and switch to Tylenol. This has since resolved. He does have chronic bilateral foot drop. He denies any focal weakness but complains of generalized weakness due to poor oral intake over the last several days. He does walk with a Rollator due to his bilateral foot drop and generally feels like he is having difficulty walking. In ED patient remained hemodynamically stable. He did have mild leukocytosis at 14.74, thrombocytopenia at 129, elevated total absolute lymphocytosis at 6.15, sodium 132, glucose 103, total bilirubin 2.7.Head and neck CTA reveal atherosclerotic vascular disease without high-grade stenosis dissection or aneurysm. Postoperative changes of discectomy at C3-C4 was noted. Moderate prevertebral edema with ill-defined 3.5 x 0.9 x 3.2 cm prevertebral collection extending from C3-C5 suggestive of probable postoperative seroma or hematoma. Otherwise no acute intracranial finding. His chest x-ray was negative. Given findings of right-sided facial droop TPA was contraindicated in setting of duration of symptoms approximately 2 days as well as recent surgery. Allergies Allergy/AdvReac Type Severity Reaction Status Date / Time Sulfa (Sulfonamide Allergy Intermediate Arm Verified 11/06/20 06:05 Antibiotics) swelling Home Medications Medication Instructions Recorded Confirmed Type ascorbic acid (vitamin C) 500 mg 500 mg PO BID 11/18/17 11/11/20 History capsule cholecalciferol (vitamin D3) 25 1,000 unit PO DAILY 11/18/17 11/11/20 History mcg (1,000 unit) capsule (Vitamin D3) coQ10 (ubiquinol) 100 mg capsule 100 mg PO Q2D 11/18/17 11/11/20 History acetaminophen 500 mg tablet (Pain 1,000 mg PO Q8H PRN 10/25/20 11/11/20 History Reliever (acetaminophen)) oxycodone 5 mg tablet 5 mg PO Q6H PRN #20 tab 11/07/20 11/11/20 Rx tramadol 50 mg tablet 50 mg PO Q6H PRN #20 tab 11/07/20 11/11/20 Rx fish,flax,primrose,borag 1 cap PO DAILY 11/11/20 11/11/20 History oils-om3,6,9 no5 400 mg-400 mg-200 mg capsule ([place] 3-6-9 Fatty Acids) Past Med/Surg History Medical History (Updated 11/11/20 @ 09:40 by Carmen Thompson PA-C) Hx of polymyalgia rheumatica Osteoarthritis Surgical History (Updated 11/11/20 @ 09:33 by Carmen Thompson PA-C) H/O hemorrhoidectomy History of cervical spinal surgery 11/06/[address] 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 Beliefs That Will Affect Care: None marital status: Current Living Situation: Spouse Other Information That Helps Us Care for You: No Feels Safe at Home: Yes Safety Concerns: Feels Safe At This Time Assistive Devices: Walker Review of Systems Review of Systems: All systems reviewed & are unremarkable except as noted in HPI & below Physical Exam Physical Exam: Constitutional: Tall, elderly, M, hoarse voice, nontoxic, WD/WN, vitals as above, NAD, sitting up in bed, pleasant, able to converse but appears difficult due to hoarseness Head: Normocephalic, Atraumatic Eyes: PERRL, conjunctivae normal, anicteric sclerae ENMT: external ear and nose normal, oropharynx normal, right-sided facial droop Neck: Right surgical incision CDI, trachea midline, no thyromegaly normal visual inspection Respiratory: normal respiratory effort, rhonchi noted anteriorly, deep inhalation stimulated cough, posteriorly lungs clear to auscultation, no wheeze, rales, rhonchi. Normal insp/exp effort, no accessory muscle use Cardiovascular: RRR, no murmur, no edema Vessels: no JVD or carotid bruit Chest: normal inspection of chest Abdomen: normal bowel sounds, soft, nontender, no hepatosplenomegaly Musculoskeletal: no cyanosis or clubbing, extremities motor strength 5/5, bilateral foot drop noted, weakness to bilateral dorsiflexion 4/5 Skin: no rashes, warm and dry normal turgor Neurologic: PERRL, EOMI, accommodation nl, no face palsy, no dysarthria CN's II-XI intact bilaterally and moves all extremities Psychiatric: A+Ox3, euthymic affect Lymphatic: no cervical or axillary lymphadenopathy : deferred Results & Data Results & Data ([facility]) Vital Signs (Past 12 Hours) Vital Signs Temp Pulse Resp BP Pulse Ox 11/11/20 08:01 82 21 137/75 96 11/11/20 07:01 93 H 18 119/63 96 11/11/20 06:31 90 16 145/93 H 98 11/11/20 05:33 95 H 23 129/107 H 95 11/11/20 05:00 100 H 17 125/67 94 11/11/20 04:30 93 H 15 138/87 94 11/11/20 04:00 36.9 C 92 H 18 147/82 H 96 Diagnostic Findings Chest X-Ray 11/11/20 04:30 XR chest 1V portable HISTORY: Cough. Shortness of breath. COMPARISON: Chest 10/26/2020. FINDINGS: The lungs are clear. Cardiac silhouette is normal in size. No pleural effusions. No pneumothorax. IMPRESSION: No acute process. ACT 112: Negative or not required by law. Electronically signed by: Erick Albarado M.D. 11/11/2020 9:14 AM Head CTA 11/11/20 04:31 CT angio neck with con, CT angio head wo/w CLINICAL HISTORY: 80 years-old Male with left facial weakness. Acute strokelike symptoms with left-sided facial weakness COMPARISON STUDY: Fluoroscopic images of the cervical spine 11/06/2020. TECHNIQUE: Following the IV administration of 120 mL of Optiray, CT angiogram of the head and neck was performed from the aortic arch to the skull base. Images are reviewed in the axial, sagittal, and coronal planes. 3-D MIPS images are created and assessed. IV contrast was administered without complication. All measurements were calculated based on NASCET criteria. Noncontrast head CT was also obtained. A dose lowering technique was utilized adhering to the principles of ALARA. CT DOSE: 1125.15 mGy.cm FINDINGS: CT HEAD: Age-related involutional changes. Extensive white matter hypodensities suggestive of chronic microvascular ischemic disease. Cerebral vascular calcifications. No acute intracranial hemorrhage, midline shift, abnormal extra- axial collection, hydrocephalus, intracranial mass or acute territorial infarct. No acute calvarial fracture. Mastoid air cells are clear. Small air-fluid levels within the maxillary sinuses. Unremarkable soft tissues. Prior bilateral lens repair. CTA HEAD AND NECK: Moderate atherosclerosis of the thoracic aortic arch. Patency of the innominate and imaged subclavian arteries. The common carotid arteries are widely patent. Mild atherosclerotic plaque of the left greater the right carotid bulb results in less than 50% luminal narrowing bilaterally. Atherosclerotic plaque at the origin of the left vertebral artery causes mild stenosis. The left vertebral artery is dominant. The middle and anterior cerebral arteries are patent. H ypoplastic right A1 segment is likely developmental. The basilar and posterior cerebral arteries are patent. Cerebral venous sinuses are patent. There is no abnormal intracranial enhancement. Anterior plate and screw fusion with discectomy at C3-C4. The hardware appears intact. 4 mm anterolisthesis C3 on C4 with 2 mm anterolisthesis C4 on C5. Severe C5-C6 intervertebral disc space narrowing with spondylitic spurring. Mild wedge deformity at T1 is likely chronic. Severe multilevel facet arthrosis. 1.4 x 0.6 x 0.7 cm hyperattenuating focus is noted within the prevertebral tissues anterior to the C4 vertebral body on image 164 series 6 with similar appearing subcentimeter material noted within the right neck superficial to the right internal carotid artery on image 140 series 6. Moderate prevertebral edema with 3.5 x 0.9 x 3.2 cm prevertebral collection centered at the C3-C4 level. The airway is patent. Mild wall thickening of the epiglottis is likely reactive. Multinodular thyroid. Lung apices are clear without pneumothorax. IMPRESSION: 1. Atherosclerotic vascular disease. No aneurysm, dissection, high-grade stenosis or arterial occlusion. 2. Postoperative changes of recent anterior plate and screw fusion with discectomy at C3-C4. The hardware appears intact and there is 4 mm anterolisthesis C3 on C4. 3. Moderate prevertebral edema with ill-defined 3.5 x 0.9 x 3.2 cm prevertebral collection extending from C3-C5 suggestive of a probable postoperative seroma or hematoma. This contains a 1.4 cm hyperattenuating focus which may represent packing material. Correlate with surgical history. 4. No acute intracranial abnormality. 5. Additional findings as above. ACT 112: Negative or not required by law. The above report was generated using voice recognition software. It may contain grammatical, syntax or spelling errors. Electronically signed by: Mathew Franco M.D. 11/11/2020 8:07 AM Neck CTA 11/11/20 04:31 CT angio neck with con, CT angio head wo/w CLINICAL HISTORY: 80 years-old Male with left facial weakness. Acute strokelike symptoms with left-sided facial weakness COMPARISON STUDY: Fluoroscopic images of the cervical spine 11/06/2020. TECHNIQUE: Following the IV administration of 120 mL of Optiray, CT angiogram of the head and neck was performed from the aortic arch to the skull base. Images are reviewed in the axial, sagittal, and coronal planes. 3-D MIPS images are created and assessed. IV contrast was administered without complication. All measurements were calculated based on NASCET criteria. Noncontrast head CT was also obtained. A dose lowering technique was utilized adhering to the principles of ALARA. CT DOSE: 1125.15 mGy.cm FINDINGS: CT HEAD: Age-related involutional changes. Extensive white matter hypodensities suggestive of chronic microvascular ischemic disease. Cerebral vascular calcifications. No acute intracranial hemorrhage, midline shift, abnormal extra-axial collection, hydrocephalus, intracranial mass or acute territorial infarct. No acute calvarial fracture. Mastoid air cells are clear. Small air- fluid levels within the maxillary sinuses. Unremarkable soft tissues. Prior bilateral lens repair. CTA HEAD AND NECK: Moderate atherosclerosis of the thoracic aortic arch. Patency of the innominate and imaged subclavian arteries. The common carotid arteries are widely patent. Mild atherosclerotic plaque of the left greater the right carotid bulb results in less than 50% luminal narrowing bilaterally. Atherosclerotic plaque at the origin of the left vertebral artery causes mild stenosis. The left vertebral artery is dominant. The middle and anterior cerebral arteries are patent. Hypoplastic right A1 segment is likely developmental. The basilar and posterior cerebral arteries are patent. Cerebral venous sinuses are patent. There is no abnormal intracranial enhancement. Anterior plate and screw fusion with discectomy at C3-C4. The hardware appears intact. 4 mm anterolisthesis C3 on C4 with 2 mm anterolisthesis C4 on C5. Severe C5-C6 intervertebral disc space narrowing with spondylitic spurring. Mild wedge deformity at T1 is likely chronic. Severe multilevel facet arthrosis. 1.4 x 0.6 x 0.7 cm hyperattenuating focus is noted within the prevertebral tissues anterior to the C4 vertebral body on image 164 series 6 with similar appearing subcentimeter material noted within the right neck superficial to the right internal carotid artery on image 140 series 6. Moderate prevertebral edema with 3.5 x 0.9 x 3.2 cm prevertebral collection centered at the C3-C4 level. The airway is patent. Mild wall thickening of the epiglottis is likely reactive. Multinodular thyroid. Lung apices are clear without pneumothorax. IMPRESSION: 1. Atherosclerotic vascular disease. No aneurysm, dissection, high-grade stenosis or arterial occlusion. 2. Postoperative changes of recent anterior plate and screw fusion with discectomy at C3-C4. The hardware appears intact and there is 4 mm anterolisthesis C3 on C4. 3. Moderate prevertebral edema with ill-defined 3.5 x 0.9 x 3.2 cm prevertebral collection extending from C3-C5 suggestive of a probable postoperative seroma or hematoma. This contains a 1.4 cm hyperattenuating focus which may represent packing material. Correlate with surgical history. 4. No acute intracranial abnormality. 5. Additional findings as above. ACT 112: Negative or not required by law. The above report was generated using voice recognition software. It may contain grammatical, syntax or spelling errors. Electronically signed by: Mathew Franco M.D. 11/11/2020 8:07 AM Medications Administered Medication List Discontinued Medications Ioversol (Optiray 320 125ml) 120 ml IV ONCE ONE Stop: 11/11/20 04:48 Last Admin: 11/11/20 04:47 Dose: 120 ml Documented by: [id number] ECG Rate (beats per minute): 92 Rhythm: normal sinus Findings: + PVC COVID-19 Results Results COVID-19 Adm Lab Results: RBC 4.98 M/uL (4.7-6.1) 11/11/20 WBC 14.74 K/uL (4.8-10.8) H 11/11/20 Hgb 16.0 g/dL (14.0-18.0) 11/11/20 Hct 45.8 % (42-52) 11/11/20 Plt Count 129 K/uL (130-400) L 11/11/20 ANC 8.08 K/uL (1.4-6.5) H 11/11/20 ALC 6.15 K/uL (1.2-3.4) H 11/11/20 Neutrophils % (Manual) 54.8 % 11/11/20 Lymphocytes % (Manual) 10.4 % 11/11/20 Reactive Lymphocytes % (Manual) 31.3 % 11/11/20 Monocytes % (Manual) 3.5 % 11/11/20 Neutrophils # (Manual) 8.08 K/uL (1.4-6.5) H 11/11/20 Lymphocytes # (Manual) 1.53 K/uL (1.2-3.4) 11/11/20 Reactive Lymphocytes # 4.61 K/uL 11/11/20 Monocytes # (Manual) 0.52 K/uL (0.11-0.59) 11/11/20 Red Blood Cell Morphology Unremarkable 11/11/20 Na 132 mmol/L (136-145) L 11/11/20 K 4.2 mmol/L (3.5-5.1) 11/11/20 Cl 99 mmol/L (98-107) 11/11/20 CO2 26 mmol/L (21-32) 11/11/20 Anion Gap 7.0 (3-11) 11/11/20 BUN 16 mg/dl (7-18) 11/11/20 Creatinine 0.39 mg/dl (0.6-1.4) L 11/11/20 BUN/Creatinine Ratio 41.1 (10-20) H 11/11/20 Glucose Level 103 mg/dl (70-99) H 11/11/20 Ca 8.7 mg/dl (8.5-10.1) 11/11/20 Total Bilirubin 2.7 mg/dl (0.2-1) H 11/11/20 Direct Bilirubin 0.6 mg/dl (0-0.2) H 11/11/20 AST/SGOT 24 U/L (15-37) 11/11/20 ALT/SGPT 26 U/L (12-78) 11/11/20 Alkaline Phosphatase 68 U/L (45-117) 11/11/20 Total Protein 6.5 gm/dl (6.4-8.2) 11/11/20 Albumin 3.7 gm/dl (3.4-5.0) 11/11/20 Troponin I < 0.015 ng/ml (0-0.045) 11/11/20 FI-Vsa-U-Type Natriuretic Pep 530 pg/ml (0-1800) 11/11/20 Procalcitonin < 0.05 ng/ml (0-0.5) 11/11/20 PTT 29.2 Seconds (21.0-31.0) 11/11/20 INR 1.1 (0.9-1.1) 11/11/20 COVID-19 PCR NEGATIVE (Negative) 11/11/20 Chest X-Ray 11/11/20 Code Status & VTE Plan Code Status DNR/DNI VTE Prophylaxis Plan VTE Prophylaxis will be ordered: Yes Supervising Physician Co-Signing Physician Notes 80-year-old male with PMH of PMR, chronic inflammatory polyneuropathy, cervical spinal stenosis status post ACDF of C3-C4 11/06, HLD and chronic bilateral foot drop presented to our ED 11/11 secondary to difficulty swallowing and cough since last 4 to 5 days. Per patient, after discharge on 11/07 he started having problem drinking/swallowing associated with cough [insulin dry lately with clear white sputum] and hoarseness which worsened since last 5 days. He also noted left- sided facial droop approximately 2 days ago. He denies any fever/chills/shaking/increased weakness anywhere in the body/other review of symptoms. He has not been able to eat/drink much due to coughing fit. Hence he feels weaker in overall sense. #. Left-sided facial palsylower motor neuron involvementlikely John's: Lyme titer sent, admitting MRI brain negative for stroke. Admitting CTA head and neck suggestive of prevertebral edema with probable postoperative seroma or hematoma. Neurology consultedappreciate recommendation. Follow-up with echo. #. Dry cough: Likely post intubation. #. Status post ACDF C3-C4 11/06: Orthopedics on board, recommending short course of steroid. #. Difficulty swallowing/drinking: Speech eval Upon examination: GENERAL: Alert and oriented x3. NAD, on RA. Hoarse voice compared to prior visit. HEENT: No pallor, no icterus. Pupils equal, round and reactive to light. Oral mucosa moist. Face: Frowning and eye closing intact, left lower face drooping noted. NECK: No JVD, no neck masses. HEART: S1 and S2 heard. Regular rate and rhythm. No murmur, no gallop. RESPIRATORY SYSTEM: Normal AP diameter. No accessory muscle use. No wheezing, no crackles. ABDOMEN: Soft, bowel sounds present, nontender, no distention. CENTRAL NERVOUS SYSTEM: Alert and oriented x3. No facial droop. Speech is clear. Obeys simple commands. Moves extremities. EXTREMITIES: No edema, no erythema seen. Extremities power at baseline UEs 5/5, LE dorsiflexion 3/5. Sensation intact. I have seen and examined the patient and have discussed the case with the provider above. I agree with the assessment and plan as stated.
--- NOTE | 2020-11-11 10:02 | Electrocardiogram Report ---
Test Reason : Blood Pressure : / mmHG Vent. Rate : 092 BPM Atrial Rate : 092 BPM P-R Int : 152 ms QRS Dur : 090 ms QT Int : 354 ms P-R-T Axes : 063 -58 083 degrees QTc Int : 437 ms Sinus rhythm with occasional Premature ventricular complexes Left anterior fascicular block Nonspecific T wave abnormality Abnormal ECG When compared with ECG of 26-OCT-2020 15:03, Premature ventricular complexes are now Present Confirmed by Francisco J Poole ([id number]) on 11/11/2020 10:01:49 AM Referred By: REFERRED SELF Confirmed By:Francisco J Poole
[2020-11-11] MEDS ORDERED: GADOBUTROL 10ML VIAL IV ONE (10:05)
--- NOTE | 2020-11-11 10:47 | Magnetic Resonance Report ---
Brain MRI WITH AND WITHOUT CONTRAST HISTORY: Difficulty speaking. facial droop, stroke like sx TECHNIQUE: Multiplanar multisequence MRI of the brain was performed both before and after the intrave nous administration of contrast. COMPARISON STUDY: Head and neck CTA 11/11/2020. FINDINGS: There is no mass, hematoma, midline shift, or acute infarct. The paranasal sinuses are abigail r. The mastoid air cells are clear. The ventricles and sulci demonstrate mild age-related involutiona l changes. Scattered foci of T2 hyperintensity seen within the periventricular and subcortical white matter are nonspecific but suggestive of moderate microvascular ischemic changes. The major vascular flow voids at the skull base are well-maintained. No abnormal enhancement. Small left occipital scalp lipoma. Trace fluid level within the maxillary sinuses. IMPRESSION: 1. No acute intracranial abnormality. 2. Trace fluid levels within the maxillary sinuses. ACT 112: Negative or not required by law. Electronically signed by: Erick Albarado M.D. 11/11/2020 10:45 AM
[2020-11-11] MEDS ORDERED: DEXAMETHASONE SOD INJ 4 MG/ML VIAL IV SCH (11:00)
--- NOTE | 2020-11-11 11:29 | Orthopedic Consultation ---
Date of Consultation November 11, 2020 Assessment & Plan (1) Facial droop: At this time I would recommend that he maintain his head of bed greater than 45 degrees at all times. We will begin IV Decadron. And keep him n.p.o. for now. History of Present Illness Reason for Consultation: Difficulty swallowing concern with facial droop Attending Physician: Joe Bowden MD History of Present Illness This is a 80-year-old male well-known to me status post anterior cervical discectomy and fusion of C3-C4. He presents last night with difficulty swallowing concerns with left-sided facial droop. In our discussion today he states the swelling decreased over the past few days. He is having difficulty with secretions. And several episodes of coughing. He states his upper extremity lower extremity symptoms are stable and essentially unchanged. He has no significant pain. Allergies Allergy/AdvReac Type Severity Reaction Status Date / Time Sulfa (Sulfonamide Allergy Intermediate Arm Verified 11/06/20 06:05 Antibiotics) swelling Home Medications Medication Instructions Recorded Confirmed Type ascorbic acid (vitamin C) 500 mg 500 mg PO BID 11/18/17 11/11/20 History capsule cholecalciferol (vitamin D3) 25 1,000 unit PO DAILY 11/18/17 11/11/20 History mcg (1,000 unit) capsule (Vitamin D3) coQ10 (ubiquinol) 100 mg capsule 100 mg PO Q2D 11/18/17 11/11/20 History acetaminophen 500 mg tablet (Pain 1,000 mg PO Q8H PRN 10/25/20 11/11/20 History Reliever (acetaminophen)) oxycodone 5 mg tablet 5 mg PO Q6H PRN #20 tab 11/07/20 11/11/20 Rx tramadol 50 mg tablet 50 mg PO Q6H PRN #20 tab 11/07/20 11/11/20 Rx fish,flax,primrose,borag 1 cap PO DAILY 11/11/20 11/11/20 History oils-om3,6,9 no5 400 mg-400 mg-200 mg capsule ([place] 3-6-9 Fatty Acids) Patient History Medical History (Updated 11/11/20 @ 09:40 by Carmen Thompson PA-C) Hx of polymyalgia rheumatica Osteoarthritis Surgical History (Updated 11/11/20 @ 09:33 by Carmen Thompson PA-C) H/O hemorrhoidectomy History of cervical spinal surgery 11/06/[address] Jung History of herniorrhaphy History of total hip arthroplasty Right Hx of colonoscopy Hx of total knee replacement Left knee + revision Left TKA revision (11/26/17): SAB x2 attempts + PNB at [facility] Family History Mother Family history of diabetes mellitus Social History (Updated 11/11/20 @ 09:34 by Carmen Thompson PA-C) Smoking Status: Never smoker Second Hand Exposure: No; Hx Alcohol Use: Yes Alcohol type: beer Alcohol type Comment: daily, last before 11/06 Hx Substance Use: No Preferred Language: South African Communication Ability: Effective Certified Medication Aide Required: No Beliefs That Will Affect Care: None marital status: Current Living Situation: Spouse Feels Safe at Home: Yes Assistive Devices: Walker Physical Exam Physical Exam: On exam he does demonstrate facial droop to the left mouth. His eyes are reactive. His neurologic exam to the upper and lower extremities demonstrates myelopathy but unchanged from my exam several days ago. He does have reasonable strength. His neck is supple and soft there is no evidence of swelling. Results & Data ([facility]) Vital Signs (Past 12 Hours) Vital Signs Temp Pulse Resp BP Pulse Ox 11/11/20 10:30 114/87 92 11/11/20 09:00 91 H 25 H 153/124 H 95 11/11/20 08:31 93 H 18 136/105 H 96 11/11/20 08:01 82 21 137/75 96 11/11/20 07:01 93 H 18 119/63 96 11/11/20 06:31 90 16 145/93 H 98 11/11/20 05:33 95 H 23 129/107 H 95 11/11/20 05:00 100 H 17 125/67 94 11/11/20 04:30 93 H 15 138/87 94 11/11/20 04:00 36.9 C 92 H 18 147/82 H 96
[2020-11-11] MEDS ORDERED: PHARMACIST DISCHARGE MED REC CONSULT PRN (11:51)
[2020-11-11] MEDS ORDERED: LABETALOL HCL IV 5 MG/ML 20ML IV PRN (11:51)
[2020-11-11] MEDS ORDERED: ONDANSETRON INJ 2 MG/ML 2 ML VIAL IV PRN (11:51)
[2020-11-11] MEDS: SODIUM CHLORIDE 0.9% 1000ML 1,000 ML IV SCH ×2 (12:05→21:12)
[2020-11-11 12:20] LABS: Procalcitonin < 0.05 ng/ml (0-0.5)
[2020-11-11 12:26] LABS: Lyme Ab IgG w/WB Rflx Negative (Negative); Lyme Ab IgM w/WB Rflx Negative (Negative)
[2020-11-11] MEDS: dexAMETHasone 8 MG in SYRINGE 0 ML IV SCH ×2 (14:01→21:11)
[2020-11-11 18:44] LABS: Appearance Urine Clear (Clear); Bacteria Urine Automated Negative (Negative); Bilirubin Urine Negative (Negative); Blood Urine Trace (Negative); Color Urine Dark Yellow; Glucose Urine UA Negative (Negative); Ketones Urine 4+ (Negative); Leukocyte Esterase Urine Negative (Negative); Nitrite Urine Negative (Negative); Protein Urine Trace (Negative); Specific Gravity Urine > 1.045 (1.000-1.030); Urobilinogen Urine Negative (Negative)
[2020-11-11] MEDS: ACETAMINOPHEN 1,000 MG/100 ML VIAL IV SCH (21:11)
[2020-11-12] MEDS: dexAMETHasone 8 MG in SYRINGE 0 ML IV SCH ×3 (04:19→21:17)
[2020-11-12 06:28] LABS: Hematocrit (blood only) 43.8 % (42-52); Mean Corpuscular Hemoglobin 31.7 pg (25-34); Mean Corpuscular Hgb Conc 34.2 g/dL (32-36); Mean Corpuscular Volume 92.6 fL (80-100); Mean Platelet Volume 9.4 fL (7.4-10.4); Platelet Count 121 K/uL (130-400); RDW Coefficient of Variation 13.2 % (11.5-14.5); RDW Standard Deviation 45.1 fL (36.4-46.3); Red Blood Count 4.73 M/uL (4.7-6.1); White Blood Count 10.98 K/uL (4.8-10.8)
[2020-11-12 07:14] LABS: Albumin Level 3.2 gm/dl (3.4-5.0); BUN Creatinine Ratio 34.5 (10-20); Bilirubin,Total 1.4 mg/dl (0.2-1); Calcium 8.2 mg/dl (8.5-10.1); Est GFR (African American) 112.5 ml/min; Potassium 4.5 mmol/L (3.5-5.1)
[2020-11-12 07:20] LABS: Immature Granulocytes # (auto) 0.02 K/uL (0.00-0.02); Immature Granulocytes % (auto) 0.2 %; Lymphocytes # (auto) 4.48 K/uL (1.2-3.4); Lymphocytes % (auto) 40.8 %; Monocytes % (auto) 1.8 %; Neutrophils # (auto) 6.28 K/uL (1.4-6.5); Neutrophils % (auto) 57.2 %; Smudge Cells Present
[2020-11-12 07:37] LABS: Estimated Average Glucose 97 mg/dl
[2020-11-12] MEDS: SODIUM CHLORIDE 0.9% 1000ML 1,000 ML IV SCH ×2 (07:48→14:38)
[2020-11-12] MEDS: ACETAMINOPHEN 1,000 MG/100 ML VIAL IV SCH ×2 (07:58→21:17)
--- NOTE | 2020-11-12 09:49 | Neurology Consultation ---
Date of Consultation November 12, 2020 Assessment & Plan (1) Voice hoarseness: (2) Recurrent laryngeal nerve paralysis: (3) Facial droop: I suspect this patient has injury to the recurrent laryngeal nerve occurring in the context of recent anterior cervical discectomy and fusion. There could be an element of hypoglossal nerve injury as well as lingual sounds are fairly dysarthric for this patient, yet tongue protrusion is normal. He also has subtle partial facial weakness as well which seems to affect the right corner of the mouth more than the left. His smile is asymmetric but otherwise has intact upper facial movements. There does appear to be a postoperative fluid collection that could be contributing to his symptoms. The facial weakness and lingual dysarthria are also likely related. These complications may also be related to his recent intubation and not necessarily related to the fluid collection as identified on recent imaging. The brain MRI is negative for stroke. Specifically, there is no imaging evidence of a lateral medullary or other brainstem stroke syndrome. Furthermore, he does not have a crossed hemisensory deficit, Sandeep syndrome, ophthalmoplegia, or hemiataxia. Therefore, I think an acute or subacute brainstem stroke would be unlikely. Dr. Jung, orthopedics, has been reconsulted on this patient and IV dexamethasone has been recommended. I agree with this recommendation. A video laryngoscopy and swallowing evaluation is also recommended. As described in this patient's neurologic examination, he does have relatively increased deep tendon reflexes for the upper limbs, diminished deep tendon reflexes for the lower limbs, absent Achilles tendon reflexes, and a rather profound lower extremity sensory loss including proprioception. These examination findings would be consistent with his history of cervical spinal stenosis and chronic progressive lower extremity neuropathy/CIDP. His lower extremity neuropathy has been evaluated by Dr. Longoria, [facility] neurology, and there are tentative plans for IVIG. Although I do not have access to Dr. Longoria's EMG, this patient's history, clinical examination, and lumbar puncture results would be consistent with a diagnosis of CIDP. A trial of IVIG would certainly be reasonable and the patient will follow up with Dr. Longoria for this issue. History of Present Illness Reason for Consultation: stroke like sxs Requesting Physician: Carmen Thompson PA-C Attending Physician: Joe Bowden MD History of Present Illness The patient is an 80-year-old male with a chief complaint of difficulty swallowing with associated cough, slurred speech and right facial weakness that began 1 to 2 days after undergoing anterior cervical discectomy fusion at C3-4 on November 06. Symptoms have been persistent. Denies any associated facial numbness or numbness of the arms and legs. Denies any associated focal weakness or clumsiness. Denies any associated double vision, vision loss, or ptosis. No associated vertigo or headache. A CT angiogram of the head and neck was negative for any significant vascular lesion although the study did reveal a 3 cm area of prevertebral edema/collection extending from C3-C5 potentially suggestive of postoperative seroma or hematoma. A brain MRI was negative for acute or subacute infarct although did reveal chronic small vessel ischemic disease. I did review the images as well as the radiologist's interpretation of these tests. Specifically, I find no evidence of acute or subacute brainstem stroke. Past medical history is notable for polymyalgia rheumatica, in remission, not on long-term prednisone therapy, most recent ESR normal. History also notable for chronic neuropathy, possibly CIDP for which he has been following with Dr. Elvis Longoria, [facility] neurology. There are tentative plans to start IVIG. However, Dr. Longoria had also ordered a cervical spine MRI for suspected cervical myelopathy. These images are not available in [facility]. Anterior cervical discectomy fusion at C3-4 was completed November 06, [address] Jung has reevaluated this patient during this readmission to the Medical Center. He has been treated with IV Decadron. Allergies Allergy/AdvReac Type Severity Reaction Status Date / Time Sulfa (Sulfonamide Allergy Intermediate Arm Verified 11/06/20 06:05 Antibiotics) swelling Home Medications Medication Instructions Recorded Confirmed Type ascorbic acid (vitamin C) 500 mg 500 mg PO BID 11/18/17 11/11/20 History capsule cholecalciferol (vitamin D3) 25 1,000 unit PO DAILY 11/18/17 11/11/20 History mcg (1,000 unit) capsule (Vitamin D3) coQ10 (ubiquinol) 100 mg capsule 100 mg PO Q2D 11/18/17 11/11/20 History acetaminophen 500 mg tablet (Pain 1,000 mg PO Q8H PRN 10/25/20 11/11/20 History Reliever (acetaminophen)) oxycodone 5 mg tablet 5 mg PO Q6H PRN #20 tab 11/07/20 11/11/20 Rx tramadol 50 mg tablet 50 mg PO Q6H PRN #20 tab 11/07/20 11/11/20 Rx fish,flax,primrose,borag 1 cap PO DAILY 11/11/20 11/11/20 History oils-om3,6,9 no5 400 mg-400 mg-200 mg capsule ([place] 3-6-9 Fatty Acids) Patient History Medical History Hx of polymyalgia rheumatica Osteoarthritis Surgical History H/O hemorrhoidectomy History of cervical spinal surgery 11/06/[address] 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 Beliefs That Will Affect Care: None marital status: Current Living Situation: Spouse How many Children do You have: 0 Other Information That Helps Us Care for You: No Feels Safe at Home: Yes Safety Concerns: Feels Safe At This Time Assistive Devices: Walker Review of Systems Constitutional: no fever and no chills Eyes: no blind spots and no diplopia Ear, Nose, Mouth, Throat: as per Subjective / HPI, + change in voice, + hoarseness and + dysphagia; no hearing loss Respiratory: no cough and no dyspnea Cardiovascular: no chest pain and no palpitations Gastrointestinal: no constipation and no diarrhea/loose stools Genitourinary: no urinary incontinence or no urinary urgency Musculoskeletal: + neck pain and + muscle weakness Integumentary: no rash and no lesions Neurologic: as per Subjective / HPI Psychiatric: no behavioral changes, no depression, no abnormal sleep pattern and no anxiety Hematologic / Lymphatic: no easy bruising and no lymphadenopathy Exam (Neuro) Constitutional: well developed and well nourished; no acute distress Eyes: normal visual kirby by confrontation, PERRL, normal accommodation and EOM intact bilaterally; no fundoscopic abnormality, no nystagmus and no papilledema Cardiovascular: Vessels: normal carotid upstroke; no carotid bruit Neurologic: Oriented to:: Person, Place and Time Memory: Short Term Intact and Remote Intact Attention: Span Intact and Concentration Intact Language: Naming Objects and Repeating Phrases Speech Fluency: Dysarthria Speech Aphasia: negative Aphasia Fund of Knowledge: Current Events, Past History and Vocabulary Cranial Nerves: Normal II (Visual kirby full to confrontation, visual acuity normal), III, IV, (Pupils equal round reactive to light and accommodation, eye movements normal), V (Facial sensation intact), VIII (Hearing intact), IX, X (Palate elevates to midline), XI (Shoulder shrug intact) and XII (Tongue protrudes to midline); Abnorm VII (There is some asymmetry of labial movement with smile. The left lower lip appears to move more normally than the right.) Motor Strength: Normal Lower Extremities and Normal Upper Extremities; negative Pronator Drift Motor Tone: Normal Lower Extremities and Normal Upper Extremities Muscle Bulk/Involuntary Movements: No Involuntary Movements; negative Muscle Atrophy Sensation: negative Light Touch Intact, Pain/Temperature Intact, Vibration Intact or Proprioception Intact Coordination: Normal; negative Limited Balance, Dysdiadochokinesia, Finger- Nose Abnormal or Heel-Singh Abnormal Deep Tendon Reflexes: Rt Triceps: 3+, Lt Triceps: 3+, Rt Biceps: 3+, Lt Biceps: 3+, Rt Brachioradialis: 3+, Lt Brachioradialis: 3+, Rt Patellar: 1+, Lt Patellar: 1+, Rt Ankle: 0 and Lt Ankle: 0 Special Tests: negative Babinski Present Gait: Normal Station and Gait Details: There is no ptosis or ophthalmoplegia. No asymmetry and pupillary responses to light. Speech is dysarthric and hoarse sounding. Has more significant lingual dysarthria than labial dysarthria. The tongue does protrude the midline. No lingual atrophy or fasciculations. There is no crossed hem isensory deficit. There is no hemiataxia. Patient's deep tendon reflexes are relatively increased for the arms, diminished for the legs, absent at the Achilles tendons. Plantar responses are silent. Patient does have rather profound distal sensory loss including a significant proprioceptive deficit for the feet bilaterally. Results & Data ([facility]) Vital Signs (Past 12 Hours) Vital Signs Temp Pulse Resp BP BP Pulse Ox 11/12/20 08:14 36.4 C L 81 135/74 95 11/12/20 07:54 36.5 C 92 H 20 159/78 H 11/12/20 03:39 36.4 C L 92 H 18 171/87 H 96 11/11/20 22:59 36.9 C 87 19 122/68 94 Laboratory Results WBC 10.98, hemoglobin 15.0, hematocrit 43.8, platelet count 121, sodium 135, potassium 4.5, BUN 19, creatinine 0.55, glucose 136, hemoglobin A1c 5.0, calcium 8.2, magnesium 2.0, AST 28, ALT 24, troponin less than 0.015, triglycerides 58, cholesterol 168, LDL 101, VLDL 12 CSF analysis was completed September 26, 2020, clear, colorless, no xanthochromia, CSF WBC 2, RBC 0, glucose 53, CSF total protein 97.0. Other labs of note, ESR 6 this past May. Hemoglobin A1c recently 5.0. Total CK 54. Vitamin B12 623. Serum immunofixation revealed a faint band in the IgG kappa range. Diagnostic Findings MRI of the brain as well as CT angiography of the head and neck are as described in the history of present illness. An echocardiogram reveals normal left ventricular systolic function, no segmental left ventricular wall motion abnormalities, normal left atrial size, no interatrial shunt. An electrocardiogram reveals a sinus rhythm with occasional PVCs. PG Care Time/CCT Total # of Minutes Spent Total Time Spent with Patient: Total time spent is greater than 50% in c oordination of care (as documented) at patient's floor/unit and/or counseling patient: Coding Level of Care Code 54157 Initial Inpt Care Lvl 3 Diagnoses Voice hoarseness R49.0 Recurrent laryngeal nerve paralysis J38.00 Facial droop R29.810
--- NOTE | 2020-11-12 10:12 | Orthopedic Progress Note ---
Date of Service November 12, 2020 Assessment & Plan (1) S/P cervical discectomy: Plan: Patient has been on approximate 24 hours of IV Decadron. The swelling is markedly improved. We are awaiting a swallowing eval and hopefully we can begin a clear liquid diet. Admission and Anticipated Discharge Date Admission Date: November 11, 2020 Subjective Patient feels he is swallowing much better denies any neck pains feels that his neurologic status is baseline. Physical Exam Physical Exam: On exam his neck is still supple. Incision intact. No erythema no drainage. Unchanged neurologic exam to the upper and lower extremities. Results & Data ([facility]) Vital Signs (Past 12 Hours) Vital Signs Temp Pulse Pulse Resp BP BP Pulse Ox 11/12/20 08:14 36.4 C L 81 135/74 95 11/12/20 08:00 81 11/12/20 07:54 36.5 C 92 H 20 159/78 H 11/12/20 03:39 36.4 C L 92 H 18 171/87 H 96 11/11/20 22:59 36.9 C 87 19 122/68 94
--- NOTE | 2020-11-12 11:06 | Hospitalist Progress Note ---
Date of Service November 12, 2020 Assessment & Plan (1) Recurrent laryngeal nerve paralysis: (2) Voice hoarseness: (3) S/P cervical discectomy: (4) Facial droop: Plan: 80-year-old male with PMH of PMR, CIDP [plan for IVIG in near future with neurology], cervical spinal stenosis status post ACDF of C3-C4 11/06, HLD and chronic bilateral foot drop presented to our ED 11/11 secondary to difficulty swallowing and cough since last 4 to 5 days. Per patient, after discharge on 11/07 he started having problem drinking/swallowing associated with cough [insulin dry lately with clear white sputum] and hoarseness which worsened since last 5 days. He also noted left-sided facial droop approximately 2 days ago. He denies any fever/chills/shaking/increased weakness anywhere in the body/other review of symptoms. He has not been able to eat/drink much due to coughing fit. Hence he feels weaker in overall sense. Is being managed for the following: #. Strokelike symptoms #. Facial palsy #. Recurrent laryngeal nerve paralysis/voice hoarsenessin the context of recent anterior cervical discectomy and fusion #. Status post ACDF C3-C4 11/06 Admitting CTA head and neck suggestive of prevertebral edema with probable postoperative seroma or hematoma. Admitting brain MRI: Negative for intracranial abnormality, trace fluid levels within the maxillary sinuses. Admitting EKG: Sinus rhythm with occasional PVCs. 11/12 echo: EF 55 to 60%, grade 1 diastolic dysfunction. No inter-atrial shunt. Lyme titer negative Neurology on board: Facial palsy and voice hoarseness could likely be related to fluid collection after recent surgical procedure versus recent intubation. Agrees with IV steroid and swallow study. Orthopedics on board: Recommending IV Decadron 1 to 2 days. Speech therapy: 11/12 fees instrumental swallowing assessmentaspirated almost all consistencies, recommends ice chips and sips only right now and rechecking in a few days. Patient on IV steroid, reporting improvement in his hoarseness and symptoms. Continue to monitor, provide supportive care. #. Dry cough: Likely post intubation. Improving. #. Difficulty swallowing/drinking: Speech recommending ice chips and sips only, rechecking in few days. Disposition: Continue PCU care, OT recommending SNF. Admission and Anticipated Discharge Date Admission Date: November 11, 2020 Subjective Patient was sitting up in bed, room air, NAD, no issues overnight. Patient reports feeling 80 to 85% more better than yesterday. Patient's speech seems more clear than yesterday. He has some cough but markedly better than yesterday. Denies other review of symptoms. Had not had bowel movement in last 2 days, currently n.p.o., awaiting speech eval. Physical Exam Physical Exam: GENERAL: Alert and oriented x3. NAD, on RA. Hoarseness of voice improving. HEENT: No pallor, no icterus. Pupils equal, round and reactive to light. Oral mucosa moist. Face: Frowning and eye closing intact, tongue protrusion intact, left lower face drooping noted. NECK: No JVD, no neck masses. HEART: S1 and S2 heard. Regular rate and rhythm. No murmur, no gallop. RESPIRATORY SYSTEM: Normal AP diameter. No accessory muscle use. No wheezing, no crackles. ABDOMEN: Soft, bowel sounds present, nontender, no distention. CENTRAL NERVOUS SYSTEM: Alert and oriented x3. No facial droop. Obeys simple commands. Moves extremities. EXTREMITIES: No edema, no erythema seen. Extremities power at baseline UEs 5/5, LE dorsiflexion 3/5. Results & Data Results & Data ([facility]) Vital Signs (Past 12 Hours) Vital Signs Temp Pulse Pulse Resp BP BP Pulse Ox 11/12/20 08:14 36.4 C L 81 135/74 95 11/12/20 08:00 81 11/12/20 07:54 36.5 C 92 H 20 159/78 H 11/12/20 03:39 36.4 C L 92 H 18 171/87 H 96
[2020-11-12] MEDS: D5W AND NSS 1,000 ML IV SCH (17:48)
[2020-11-13] MEDS: dexAMETHasone 8 MG in SYRINGE 0 ML IV SCH ×3 (04:02→20:48)
[2020-11-13] MEDS: D5W AND NSS 1,000 ML IV SCH ×2 (06:51→17:59)
[2020-11-13 07:04] LABS: Hematocrit (blood only) 44.4 % (42-52); Hemoglobin 15.1 g/dL (14.0-18.0); Mean Corpuscular Hemoglobin 31.7 pg (25-34); Mean Corpuscular Volume 93.1 fL (80-100); Mean Platelet Volume 9.9 fL (7.4-10.4); Platelet Count 144 K/uL (130-400); RDW Coefficient of Variation 13.5 % (11.5-14.5); RDW Standard Deviation 45.9 fL (36.4-46.3); Red Blood Count 4.77 M/uL (4.7-6.1); White Blood Count 12.88 K/uL (4.8-10.8)
[2020-11-13 07:48] LABS: BUN Creatinine Ratio 39.7 (10-20); Calcium 8.7 mg/dl (8.5-10.1); Est GFR (African American) 122.1 ml/min; Est GFR (Non-African American) 105.4 ml/min; Potassium 4.4 mmol/L (3.5-5.1)
[2020-11-13 08:11] LABS: ANC (manual) 6.85 K/uL (1.4-6.5); Lymphocytes % (manual) 22.5 %; Monocytes # (manual) 0.23 K/uL (0.11-0.59); Monocytes % (manual) 1.8 %; Neutrophils # (manual) 6.85 K/uL (1.4-6.5); Neutrophils % (manual) 53.2 %; Reactive Lymphocytes % (manual) 22.5 %; Smudge Cells Present
--- NOTE | 2020-11-13 08:15 | Orthopedic Progress Note ---
Date of Service November 13, 2020 Assessment & Plan (1) Myelopathy concurrent with and due to spinal stenosis of cervical region: Plan: This time we will continue with steroid therapy. Hopefully we can advance his diet today. He is willing to get his walker from [facility] here today so that he can begin ambulation with therapy. Strongly encouraged him to get out of bed and try to walk. Admission and Anticipated Discharge Date Admission Date: November 11, 2020 Subjective Patient continues to feel as he is improving. Swallowing is somewhat improved. Physical Exam Physical Exam: On exam his neck is still supple incision intact. No apprec iable swelling. Unchanged testing to upper extremity strength. Still evidence of some modest droop to the left side of his mouth. Results & Data ([facility]) Vital Signs (Past 12 Hours) Vital Signs Temp Pulse Pulse Resp BP Pulse Ox 11/13/20 07:30 36.6 C 75 17 135/65 98 11/13/20 04:00 36.4 C L 74 20 127/72 96 11/13/20 00:00 36.7 C 77 20 130/72 96
[2020-11-13] MEDS: ACETAMINOPHEN 1,000 MG/100 ML VIAL IV SCH ×2 (09:23→20:51)
--- NOTE | 2020-11-13 10:58 | Hospitalist Progress Note ---
Date of Service November 13, 2020 Assessment & Plan (1) Recurrent laryngeal nerve paralysis: (2) Voice hoarseness: (3) S/P cervical discectomy: (4) Facial droop: Plan: 80-year-old male with PMH of PMR, CIDP [plan for IVIG in near future with neurology], cervical spinal stenosis status post ACDF of C3-C4 11/06, HLD and chronic bilateral foot drop presented to our ED 11/11 secondary to difficulty swallowing and cough since last 4 to 5 days. Per patient, after discharge on 11/07 he started having problem drinking/swallowing associated with cough [insulin dry lately with clear white sputum] and hoarseness which worsened since last 5 days. He also noted left-sided facial droop approximately 2 days ago. He denies any fever/chills/shaking/increased weakness anywhere in the body/other review of symptoms. He has not been able to eat/drink much due to coughing fit. Hence he feels weaker in overall sense. Is being managed for the following: #. Strokelike symptoms #. Facial palsylower #. Recurrent laryngeal nerve paralysis/voice hoarsenessin the context of recent anterior cervical discectomy and fusion #. Status post ACDF C3-C4 11/06 Admitting CTA head and neck suggestive of prevertebral edema with probable postoperative seroma or hematoma. Admitting brain MRI: Negative for intracranial abnormality, trace fluid levels within the maxillary sinuses. Admitting EKG: Sinus rhythm with occasional PVCs. 11/12 echo: EF 55 to 60%, grade 1 diastolic dysfunction. No inter-atrial shunt. Lyme titer negative Neurology on board: Facial palsy and voice hoarseness could likely be related to fluid collection after recent surgical procedure versus recent intubation. Agrees with IV steroid and swallow study. Orthopedics on board: Recommending IV Decadron 1 to 2 days. Speech therapy: 11/12 fees instrumental swallowing assessmentaspirated almost all consistencies, recommends ice chips and sips only right now and rechecking in a few days. Patient on IV steroid, plan to continue today per orthopedics. Continue to monitor, provide supportive care. Discussed with neurology, will consult ENT for hoarseness/possible recurrent laryngeal nerve involvement. Repeat swallow eval in 2 to 3 days. #. Dry cough: Likely post intubation. Improving. #. Difficulty swallowing/drinking: Speech recommending ice chips and sips only, rechecking in few days. Disposition: Continue PCU care, will admit him. OT recommending SNF. Admission and Anticipated Discharge Date Admission Date: November 11, 2020 Subjective Patient sitting up in chair, on room air, NAD. No issues overnight. Patient reports feeling same/minimally better compared to yesterday. He still has some dysarthria. Denies other review of symptoms. Physical Exam Physical Exam: GENERAL: Alert and oriented x3. NAD, on RA. Hoarseness of voice stable compared to yesterday. HEENT: No pallor, no icterus. Pupils equal, round and reactive to light. Oral mucosa moist. Face: Frowning and eye closing intact, tongue protrusion intact, left lower face drooping noted. NECK: No JVD, no neck masses. HEART: S1 and S2 heard. Regular rate and rhythm. No murmur, no gallop. RESPIRATORY SYSTEM: Normal AP diameter. No accessory muscle use. No wheezing, no crackles. ABDOMEN: Soft, bowel sounds present, nontender, no distention. CENTRAL NERVOUS SYSTEM: Alert and oriented x3. Obeys simple commands. Moves extremities. EXTREMITIES: No edema, no erythema seen. Extremities power at baseline UEs 5/5, LE dorsiflexion 3/5. Results & Data Results & Data ([facility]) Vital Signs (Past 12 Hours) Vital Signs Temp Pulse Pulse Pulse Resp BP Pulse Ox 11/13/20 08:00 83 11/13/20 07:30 36.6 C 75 17 135/65 98 11/13/20 04:00 36.4 C L 74 20 127/72 96 11/13/20 00:00 36.7 C 77 20 130/72 96
[2020-11-13] MEDS: HEPARIN SOD 5,000 UNIT/0.5 ML VIAL SQ SCH (20:50)
[2020-11-14] MEDS: dexAMETHasone 8 MG in SYRINGE 0 ML IV SCH ×3 (05:19→21:52)
[2020-11-14] MEDS: D5W AND NSS 1,000 ML IV SCH ×2 (05:19→19:19)
[2020-11-14 06:04] LABS: Hematocrit (blood only) 42.2 % (42-52); Hemoglobin 14.5 g/dL (14.0-18.0); Mean Corpuscular Hemoglobin 31.4 pg (25-34); Mean Corpuscular Hgb Conc 34.4 g/dL (32-36); Mean Corpuscular Volume 91.3 fL (80-100); Mean Platelet Volume 9.7 fL (7.4-10.4); Platelet Count 135 K/uL (130-400); RDW Coefficient of Variation 13.4 % (11.5-14.5); RDW Standard Deviation 44.2 fL (36.4-46.3); Red Blood Count 4.62 M/uL (4.7-6.1); White Blood Count 12.35 K/uL (4.8-10.8)
[2020-11-14 06:35] LABS: BUN Creatinine Ratio 47.4 (10-20); Calcium 8.3 mg/dl (8.5-10.1); Creatinine Clr Calc Pharmacy 169.4 ml/min; Est GFR (African American) 130.9 ml/min
[2020-11-14 06:52] LABS: Basophils # (auto) 0.01 K/uL (0-0.2); Basophils % (auto) 0.1 %; Immature Granulocytes # (auto) 0.05 K/uL (0.00-0.02); Immature Granulocytes % (auto) 0.4 %; Lymphocytes # (auto) 5.99 K/uL (1.2-3.4); Lymphocytes % (auto) 48.5 %; Monocytes # (auto) 0.31 K/uL (0.11-0.59); Monocytes % (auto) 2.5 %; Neutrophils # (auto) 5.99 K/uL (1.4-6.5); Neutrophils % (auto) 48.5 %; Smudge Cells Present
[2020-11-14] MEDS: HEPARIN SOD 5,000 UNIT/0.5 ML VIAL SQ SCH ×2 (08:00→21:52)
[2020-11-14] MEDS: ACETAMINOPHEN 1,000 MG/100 ML VIAL IV SCH (08:39)
--- NOTE | 2020-11-14 15:54 | Hospitalist Progress Note ---
Date of Service November 14, 2020 Assessment & Plan (1) Recurrent laryngeal nerve paralysis: (2) Voice hoarseness: (3) S/P cervical discectomy: (4) Facial droop: Plan: 80-year-old male with PMH of PMR, CIDP [plan for IVIG in near future with neurology], cervical spinal stenosis status post ACDF of C3-C4 11/06, HLD and chronic bilateral foot drop presented to our ED 11/11 secondary to difficulty swallowing and cough since last 4 to 5 days. Per patient, after discharge on 11/07 he started having problem drinking/swallowing associated with cough [insulin dry lately with clear white sputum] and hoarseness which worsened since last 5 days. He also noted left-sided facial droop approximately 2 days ago. He denies any fever/chills/shaking/increased weakness anywhere in the body/other review of symptoms. He has not been able to eat/drink much due to coughing fit. Hence he feels weaker in overall sense. Is being managed for the following: #. Strokelike symptoms #. Facial palsylower #. Recurrent laryngeal nerve paralysis/voice hoarsenessin the context of recent anterior cervical discectomy and fusion #. Status post ACDF C3-C4 11/06 Admitting CTA head and neck suggestive of prevertebral edema with probable postoperative seroma or hematoma. Admitting brain MRI: Negative for intracranial abnormality, trace fluid levels within the maxillary sinuses. Admitting EKG: Sinus rhythm with occasional PVCs. 11/12 echo: EF 55 to 60%, grade 1 diastolic dysfunction. No inter-atrial shunt. Lyme titer negative Neurology on board: Facial palsy and voice hoarseness could likely be related to fluid collection after recent surgical procedure versus recent intubation. Agrees with IV steroid and swallow study. Orthopedics on board: Recommending IV Decadron, await recommendation from orthopedics on it. Speech therapy: 11/12 fees instrumental swallowing assessmentaspirated almost all consistencies, recommends ice chips and sips only right now and rechecking in a few days. Patient on IV steroid, likely stop tomorrow. Continue to monitor, provide supportive care. Discussed with neurology, will consult ENT for hoarseness/possible recurrent laryngeal nerve involvement. Repeat swallow eval in in a week from first eval. Await ENT recommendation. #. Dry cough: Likely post intubation. Improving. #. Difficulty swallowing/drinking: Speech recommending ice chips and sips only, rechecking in few days. Swallow eval in a week from first eval Corsef feeding after ENT evaluation, likely to be started tomorrow. Patient started on thiamine, will check morning electrolytes Disposition: Continue PCU care. OT recommending SNF. Expect discharge in next 1 to 2 days. CM to assist with discharge planning. 11/13 patient was updated on the details of his plan of care and he seemed understanding and agreeable. 11/14 patient and his [over the phone] were reupdated on on his plan of care and they seemed understanding and agreeable to it. Admission and Anticipated Discharge Date Admission Date: November 13, 2020 Subjective Patient sitting up in bed, on room air, NAD. Patient reports some cough overnight. No cough today. He still has some dysarthria. Denies other review of symptoms. Physical Exam Physical Exam: GENERAL: Alert and oriented x3. NAD, on RA. Hoarseness of voice stable compared to yesterday. HEENT: No pallor, no icterus. Pupils equal, round and reactive to light. Oral mucosa moist. Face: Frowning and eye closing intact, tongue protrusion intact, left lower face drooping noted. NECK: No JVD, no neck masses. HEART: S1 and S2 heard. Regular rate and rhythm. No murmur, no gallop. RESPIRATORY SYSTEM: Normal AP diameter. No accessory muscle use. No wheezing, no crackles. ABDOMEN: Soft, bowel sounds present, nontender, no distention. CENTRAL NERVOUS SYSTEM: Alert and oriented x3. Obeys simple commands. Moves extremities. EXTREMITIES: No edema, no erythema seen. Extremities power at baseline UEs, LE dorsiflexion 3/5. Results & Data Results & Data ([facility]) Vital Signs (Past 12 Hours) Vital Signs Temp Pulse Pulse Resp BP Pulse Ox 11/14/20 15:23 36.7 C 87 19 130/77 95 11/14/20 11:47 36.8 C 75 16 141/74 H 96 11/14/20 08:16 36.6 C 82 14 137/85 97 11/14/20 08:00 71
[2020-11-14] MEDS: THIAMINE HCL 100 MG in SYRINGE 9 ML IV SCH (16:00)
--- NOTE | 2020-11-14 21:02 | ENT Consultation ---
Date of Consultation November 14, 2020 Assessment & Plan (1) Voice hoarseness: No sign of vocal cord paralysis, advance diet as Tolerated (2) Cough: History of Present Illness Reason for Consultation: Dysphagia Attending Physician: Joe Bowden MD History of Present Illness 80-year-old male status post cervical laminectomy developed swelling treated with steroids with improvement had abnormal video swallow Allergies Allergy/AdvReac Type Severity Reaction Status Date / Time Sulfa (Sulfonamide Allergy Intermediate Arm Verified 11/06/20 06:05 Antibiotics) swelling Home Medications Medication Instructions Recorded Confirmed Type ascorbic acid (vitamin C) 500 mg 500 mg PO BID 11/18/17 11/11/20 History capsule cholecalciferol (vitamin D3) 25 1,000 unit PO DAILY 11/18/17 11/11/20 History mcg (1,000 unit) capsule (Vitamin D3) coQ10 (ubiquinol) 100 mg capsule 100 mg PO Q2D 11/18/17 11/11/20 History acetaminophen 500 mg tablet (Pain 1,000 mg PO Q8H PRN 10/25/20 11/11/20 History Reliever (acetaminophen)) oxycodone 5 mg tablet 5 mg PO Q6H PRN #20 tab 11/07/20 11/11/20 Rx tramadol 50 mg tablet 50 mg PO Q6H PRN #20 tab 11/07/20 11/11/20 Rx fish,flax,primrose,borag 1 cap PO DAILY 11/11/20 11/11/20 History oils-om3,6,9 no5 400 mg-400 mg-200 mg capsule ([place] 3-6-9 Fatty Acids) Patient History Medical History Hx of polymyalgia rheumatica Osteoarthritis Surgical History H/O hemorrhoidectomy History of cervical spinal surgery 11/06/[address] Jung History of herniorrhaphy History of total hip arthroplasty Right Hx of colonoscopy Hx of total knee replacement Left knee + revision Left TKA revision (11/26/17): SAB x2 attempts + PNB at [facility] Family History Mother Family history of diabetes mellitus Social History Smoking Status: Never smoker Second Hand Exposure: No; Hx Alcohol Use: Yes Alcohol type: beer Alcohol type Comment: daily, last before 11/06 Hx Substance Use: No Preferred Language: Slovak Communication Ability: Effective Artistic Director Required: No Beliefs That Will Affect Care: None marital status: Current Living Situation: Spouse How many Children do You have: 0 Other Information That Helps Us Care for You: No Feels Safe at Home: Yes Safety Concerns: Feels Safe At This Time Assistive Devices: Brace/Splint/Immobilizer and Special Shoe Physical Exam Constitutional: WD/WN, vitals as above Eyes: PERRL, conjunctivae normal, anicteric sclerae ENMT: external ear and nose normal, oropharynx normal Throat: + posterior oropharynx abnormality (Mobile vocal cords) Neck: Right neck incision healing well Results & Data ([facility]) Vital Signs (Past 12 Hours) Vital Signs Temp Pulse Resp BP BP Pulse Ox 11/14/20 19:48 36.8 C 73 18 159/82 H 93 11/14/20 15:23 36.7 C 87 19 130/77 95 11/14/20 11:47 36.8 C 75 16 141/74 H 96
--- NOTE | 2020-11-14 21:05 | Operative Report ---
PG Post Operative Report Pre & Post Diagnosis Hoarseness and dysphagia I identified the patient and participated in the time-out.: Yes Procedure Fiberoptic laryngoscopy Surgeon Lupe Thomas MD Clerical Production Worker None Estimated Blood Loss 0 Findings Consistent with Post-Op Diagnosis Sluggish but mobile right true vocal cord. Specimens None Anesthesia Type None Complications None Indications Dysphagia Description of Procedure I did not use anesthetic. I used the fiberoptic laryngoscope via the right n ostril and visualized the vocal cords. Both vocal cords mobile. Slight sluggish movement of the right true vocal cord but able to move and closed in the midline with no sign of paralysis. I attest to the content of the Intraoperative Record and any orders documented therein. Any exceptions are noted below.
[2020-11-15] MEDS: dexAMETHasone 8 MG in SYRINGE 0 ML IV SCH ×2 (04:28→21:32)
[2020-11-15] MEDS: D5W AND NSS 1,000 ML IV SCH ×2 (06:31→19:43)
[2020-11-15 08:10] LABS: Hematocrit (blood only) 44.1 % (42-52); Hemoglobin 14.9 g/dL (14.0-18.0); Mean Corpuscular Hemoglobin 31.2 pg (25-34); Mean Corpuscular Hgb Conc 33.8 g/dL (32-36); Mean Corpuscular Volume 92.3 fL (80-100); Mean Platelet Volume 9.7 fL (7.4-10.4); Platelet Count 139 K/uL (130-400); RDW Coefficient of Variation 13.3 % (11.5-14.5); RDW Standard Deviation 44.7 fL (36.4-46.3); Red Blood Count 4.78 M/uL (4.7-6.1); White Blood Count 10.62 K/uL (4.8-10.8)
[2020-11-15] MEDS: HEPARIN SOD 5,000 UNIT/0.5 ML VIAL SQ SCH ×2 (08:26→21:32)
[2020-11-15] MEDS: THIAMINE HCL 100 MG in SYRINGE 9 ML IV SCH (08:26)
[2020-11-15 08:43] LABS: BUN Creatinine Ratio 36.9 (10-20); Calcium 8.4 mg/dl (8.5-10.1); Est GFR (African American) 123.3 ml/min; Est GFR (Non-African American) 106.4 ml/min; Magnesium 2.3 mg/dl (1.8-2.4); Phosphorus 2.1 mg/dl (2.5-4.9); Potassium 4.2 mmol/L (3.5-5.1)
--- NOTE | 2020-11-15 09:48 | Magnetic Resonance Report ---
MR cervical spine wo con CLINICAL INDICATION: Cervical spinal surgery 11/06/2020, now unable to ambulate.. TECHNIQUE: Axial and sagittal T1 and T2-weighted and sagittal STIR images of the cervical spine were obtained without intravenous contrast administration. Comparison: None available at the time of this dictation. FINDINGS: Exam is limited by susceptibility artifact from surgical prosthesis. Disc space narrowing and degener ative endplate changes are most prominent at C2-C5. C2-C3: No significant disc herniation. Moderate bilateral neuroforaminal stenosis and mild canal sten osis. C3-C4: Facet arthropathy results in moderate bilateral neuroforaminal stenosis and severe spinal eladia l stenosis with compression and edema of the spine. C4-C5: There is a moderate disc bulge resulting in mild canal stenosis. There is moderate bilateral n eural foraminal stenosis. C5-C6: Mild posterior disc bulge without significant spinal canal stenosis. Mild to moderate bilatera l neural foraminal stenosis. C6-C7: No significant canal narrowing, mild neuroforaminal stenosis. C7-T1: There is no significant narrowing or foraminal stenosis. Edema is seen in the cervical spine most prominent at C2-C4. There are no intradural or extradural ma sses. The cerebellar tonsils are normally positioned. There is mild edema in the paraspinal soft tiss ues at the site of the implant, which likely represents reactive postsurgical changes. A mild syrinx is seen. IMPRESSION: 1. Multilevel facet arthropathy and degenerative changes resulting in neural foraminal stenosis at C 2-C4 and severe canal stenosis at C3-C4 spinal cord compression and edema. Multilevel neuroforaminal stenosis as above. A call was placed with the patient's provider at the time of dictation. 2. Syrinx is noted extending into the thoracic spine. Recommend correlation with prior imaging avail able, otherwise imaging of the thoracic and lumbar spine may be performed to further assess this find ing. ACT 112: Negative or not required by law. Electronically signed by: Polo Osborne M.D. 11/15/2020 9:46 AM
--- NOTE | 2020-11-15 15:57 | Ears,Nose,Throat Progress Note ---
Date of Service November 15, 2020 Assessment & Plan (1) Cough: Plan: Improved. Tolerated soft diet. (2) Voice hoarseness: Plan: No sign of vocal cord paralysis. May have had some compression of the recurrent laryngeal nerve but appears to be intact. Further management per medical. Admission and Anticipated Discharge Date Admission Date: November 13, 2020 Subjective Feels well. Tolerating soft diet. No dysphagia Physical Exam Constitutional: WD/WN, vitals as above Eyes: PERRL, conjunctivae normal, anicteric sclerae ENMT: external ear and nose normal, oropharynx normal Results & Data ([facility]) Vital Signs (Past 12 Hours) Vital Signs Temp Pulse Pulse Resp BP Pulse Ox 11/15/20 15:00 36.6 C 80 18 169/71 H 95 11/15/20 11:50 36.7 C 70 17 133/71 97 11/15/20 08:00 55 L 11/15/20 07:24 36.6 C 70 18 125/75 96
[2020-11-15] MEDS: POT PHOSPHATE MONOBASIC W/ SOD TAB PO SCH ×3 (17:18→20:08)
--- NOTE | 2020-11-15 17:45 | Hospitalist Progress Note ---
Date of Service November 15, 2020 Assessment & Plan (1) Recurrent laryngeal nerve paralysis: (2) Voice hoarseness: (3) S/P cervical discectomy: (4) Facial droop: Plan: 80-year-old male with PMH of PMR, CIDP [plan for IVIG in near future with neurology], cervical spinal stenosis status post ACDF of C3-C4 11/06, HLD and chronic bilateral foot drop presented to our ED 11/11 secondary to difficulty swallowing and cough since last 4 to 5 days. Per patient, after discharge on 11/07 he started having problem drinking/swallowing associated with cough [insulin dry lately with clear white sputum] and hoarseness which worsened since last 5 days. He also noted left-sided facial droop approximately 2 days ago. He denies any fever/chills/shaking/increased weakness anywhere in the body/other review of symptoms. He has not been able to eat/drink much due to coughing fit. Hence he feels weaker in overall sense. Is being managed for the following: #. Strokelike symptoms #. Facial palsylower #. Recurrent laryngeal nerve paralysis/voice hoarsenessin the context of recent anterior cervical discectomy and fusion #. Status post ACDF C3-C4 11/06 Admitting CTA head and neck suggestive of prevertebral edema with probable postoperative seroma or hematoma. Admitting brain MRI: Negative for intracranial abnormality, trace fluid levels within the maxillary sinuses. Admitting EKG: Sinus rhythm with occasional PVCs. 11/12 echo: EF 55 to 60%, grade 1 diastolic dysfunction. No inter-atrial shunt. Lyme titer negative Neurology on board: Facial palsy and voice hoarseness could likely be related to fluid collection after recent surgical procedure versus recent intubation. Agrees with IV steroid and swallow study. Orthopedics on board: Recommending IV Decadron, will taper it down to stop in the next 1 to 2 days Speech therapy: 11/12 fees instrumental swallowing assessmentaspirated almost all consistencies, recommends ice chips and sips only right now and rechecking in a few days. Patient on IV steroid, likely, taper to once a day tomorrow and then stop. Continue to monitor, provide supportive care. ENT on board for evaluation of vocal cord involvement: 11/14 fiberoptic broncho scopyboth vocal cords mobile. Slight sluggish movement of the right true vocal cord but no sign of paralysis. 11/15 manager flight I discussed the plan with the patient to get repeat speech evaluation before we put him on diet. He seemed to be understanding. But later during the day he denied going out of the room to do the speech evaluation. He demanded full speech evaluation at the bedside. Me, his speech specialist Tommie and his nurse Ginger explained him multiple times regarding the importance of speech eval to try to figure out the type of food that can be recommended for his clinical condition. He was made aware of possible aspiration and ensuing lung infection afterwards if he were to aspirate on food. Finally because of his insistence, speech did a bedside eval and felt that he was clearly having difficulty [with vocal quality and throat clearing more so with liquids] and does not feel comfortable recommending a diet order for him. Due to the intricacies of the scenario, I reached out to ethics committee Dr. Thomas to figure the best way approach to this issue. At this point because I do not feel safe to order a food for him, we will keep him n.p.o. and give him an option for NG tube if he agrees. I will be available to his any questions whenever he has one to explain why and how his plan of care can be carried out. 11/15: Since I had already discussed with the patient and his over the phone the prior day, I tried to reach out to his over the phone to discuss about his plan of care but could not reach her. During bedside interaction with the patient, I proposed him to bring his into the discussion, he insisted not bringing her into the discussion. I respected that. #. Dry cough: Likely post intubation. Improving. #. Difficulty swallowing/drinking: Speech recommending ice chips and sips only, rechecking in few days. Speech evaluated, ENT evaluated, needs repeated speech evaluation, continue with thiamine, monitor electrolytes, see above Disposition: Continue PCU care. OT recommending SNF. Needs either NG tube or speech evaluation prior to commenting on possible discharge. CM to assist with discharge planning. 11/13 patient was updated on the details of his plan of care and he seemed understanding and agreeable. 11/14 patient and his [over the phone] were reupdated on on his plan of care and they seemed understanding and agreeable to it. Admission and Anticipated Discharge Date Admission Date: November 13, 2020 Subjective Patient was sitting up in bed, on room air, NAD. No issues overnight. Patient seemed insisted on eating different things and trying himself rather go formal speech evaluation. Tried to explain multiple times throughout the day, tried to reach his over the phone whom we had discussed his plan of care yesterdaycould not reach her, patient denied pulling speech eval rather wanted speech to come to his bedside and do the test. I requested a speech for the same, they are limited in the resources at bedside but after the evaluation at bedside they do not feel safe to order any kind of diet for him. Patient is a still dysarthric as yesterday, has some dry cough, denies other review of symptoms. Physical Exam Physical Exam: GENERAL: Alert and oriented x3. NAD, on RA. Hoarseness of voice same as yesterday HEENT: No pallor, no icterus. Pupils equal, round and reactive to light. Oral mucosa moist. Face: Frowning and eye closing intact, tongue protrusion intact, left lower face drooping noted. NECK: No JVD, no neck masses. HEART: S1 and S2 heard. Regular rate and rhythm. No murmur, no gallop. RESPIRATORY SYSTEM: Normal AP diameter. No accessory muscle use. No wheezing, no crackles. ABDOMEN: Soft, bowel sounds present, nontender, no distention. CENTRAL NERVOUS SYSTEM: Alert and oriented x3. Obeys simple commands. Moves extremities. EXTREMITIES: No edema, no erythema seen. Extremities power at baseline UEs, LE dorsiflexion 3/5. Results & Data Results & Data ([facility]) Vital Signs (Past 12 Hours) Vital Signs Temp Pulse Pulse Resp BP Pulse Ox 11/15/20 16:00 94 H 11/15/20 15:00 36.6 C 80 18 169/71 H 95 11/15/20 11:50 36.7 C 70 17 133/71 97 11/15/20 08:00 55 L 11/15/20 07:24 36.6 C 70 18 125/75 96
[2020-11-16 07:23] LABS: BUN Creatinine Ratio 44.3 (10-20); Calcium 8.3 mg/dl (8.5-10.1); Creatinine Clr Calc Pharmacy 135.6 ml/min; Est GFR (Non-African American) 103.5 ml/min; Magnesium 2.3 mg/dl (1.8-2.4); Potassium 4.1 mmol/L (3.5-5.1)
[2020-11-16 07:26] LABS: Phosphorus 2.9 mg/dl (2.5-4.9)
[2020-11-16] MEDS: dexAMETHasone 8 MG in SYRINGE 0 ML IV SCH (07:55)
[2020-11-16] MEDS: D5W AND NSS 1,000 ML IV SCH (07:55)
[2020-11-16] MEDS: POT PHOSPHATE MONOBASIC W/ SOD TAB PO SCH (08:06)
[2020-11-16] MEDS: THIAMINE HCL 100 MG in SYRINGE 9 ML IV SCH (08:07)
[2020-11-16] MEDS: HEPARIN SOD 5,000 UNIT/0.5 ML VIAL SQ SCH (10:10)
--- NOTE | 2020-11-16 12:03 | Hospitalist Progress Note ---
Date of Service November 16, 2020 Assessment & Plan (1) Recurrent laryngeal nerve paralysis: (2) Voice hoarseness: (3) S/P cervical discectomy: (4) Facial droop: Plan: per Dr. Bowden's notes: 80-year-old male with PMH of PMR, CIDP, cervical spinal stenosis status post ACDF of C3-C4 11/06, HLD and chronic bilateral foot drop presented to our ED 11/11 secondary to difficulty swallowing and cough since last 4 to 5 days. Per patient, after discharge on 11/07 he started having problem drinking/swallowing associated with cough [insulin dry lately with clear white sputum] and hoarseness which worsened since last 5 days. He also noted left-sided facial droop approximately 2 days ago. He denies any fever/chills/shaking/increased weakness anywhere in the body/other review of symptoms. He has not been able to eat/drink much due to coughing fit. Hence he feels weaker in overall sense. Is being managed for the following: #. Strokelike symptoms #. Facial palsylower #. Recurrent laryngeal nerve paralysis/voice hoarsenessin the context of rec ent anterior cervical discectomy and fusion #. Status post ACDF C3-C4 11/06 Admitting CTA head and neck suggestive of prevertebral edema with probable postoperative seroma or hematoma. Admitting brain MRI: Negative for intracranial abnormality, trace fluid levels within the maxillary sinuses. Admitting EKG: Sinus rhythm with occasional PVCs. 11/12 echo: EF 55 to 60%, grade 1 diastolic dysfunction. No inter-atrial shunt. Lyme titer negative Neurology on board: Facial palsy and voice hoarseness could likely be related to fluid collection after recent surgical procedure versus recent intubation. Agrees with IV steroid and swallow study. Orthopedics on board: Recommending IV Decadron, will taper it down to stop in the next 1 to 2 days Speech therapy: 11/12 fees instrumental swallowing assessmentaspirated almost all consistencies, recommends ice chips and sips only right now and rechecking in a few days. Patient on IV steroid, likely, taper to once a day tomorrow and then stop. ENT on board for evaluation of vocal cord involvement: 11/14 fiberoptic bronchoscopyboth vocal cords mobile. Slight sluggish movement of the right true vocal cord but no sign of paralysis Patient declined Video Swallow evaluation Bedside swallow evaluation performed- patient showed crystal aspiration to liquids Patient requests to advance diet further, with acceptance and understanding of Aspiration risk patient received soft diet for dinner- tolerated well as per patient discussed with ENT Dr. Thomas- he performed bedside swallow evaluation also on 11/14/20 and reports patient did well , advance diet to soft continue minced and moist diet--> advance to soft as tolerated patient understanding and accepting of risks of aspiration STRICT aspiration precautions continue Speech Therapy evaluation at [facility] continue Decadron PO x 2 more doses continue PT/OT evaluation ff up with Dr. Jung in 1 week ff up with PCP in 1 week Frequent PVCs, V tach? - sinus rhythm with runs of PVCs/ non sustained V tach revealed by ladderman - patient asymptomatic - K level normal - Echo: as per above - from Decadron taper? - continue to ff up as outpatient may need Zio patch monitor Disposition: [facility] ff up with PCP in 1 week ff up with Dr. Jung in 1 week plan of care discussed with patient in detail and at length all questions answered he is understanding, agreeable, comfortable with the plan of care Admission and Anticipated Discharge Date Admission Date: November 13, 2020 Subjective ff up for stroke like symptoms, dysphagia, etc seen resting in bed, sitting up alert oriented x 3 answers all questions appropriately states he feels fine overall had dinner last night with baked chicken, mashed potatoes, cauliflower, coffee patient reports no problems with swallowing at all no cough, choking etc states swallowing is at baseline also took neutraphos in pudding with no problems denies neck pain no new neurologic symptoms no chest pain, dyspnea, palpitations no nausea, vomiting, headache, dizziness, abdominal pain, problems with urination or BM tolerating PT/OT no other symptoms states he would like to have soft diet, declines further Speech Therapy evals states he is ready and would like to be discharged today Review of Systems Review of Systems: all noted and negative except for above Physical Exam Physical Exam: General- oriented x 3, not in distress, speaks in sentences with no effort or accessory muscle use Eyes- anicteric Neck- no JVD cervical collar in place Lungs- clear breath sounds bilaterally, no rales/wheezes Heart- normal rate, regular rhythm; no murmurs Abdomen- normal bowel sounds, nondistended, soft, nontender Extremities- no pretibial edema, no calf tenderness Neuro- alert, oriented x 3;mild weakness of LE otherwise no other gross neurologic deficit noted Skin- warm & dry Results & Data Results & Data ([facility]) Vital Signs (Past 12 Hours) Vital Signs Temp Pulse Pulse Resp BP Pulse Ox 11/16/20 08:00 71 11/16/20 07:27 36.6 C 67 18 135/66 98 11/16/20 04:32 36.4 C L 65 18 106/66 97 all noted and reviewed including below
--- NOTE | 2020-11-16 15:03 | Discharge Summary ---
Date of Service November 16, 2020 Admission HPI Per Admitting Provider This is a 80-year-old male who has significant past medical history of PMR, chronic inflammatory polyneuropathy, cervical spinal stenosis, HLD who presents to ED secondary to cough x4 to 5 days. Of significance over the past 2 months patient has been worked up by neurology due to a chronic inflammatory polyneuropathy. During work-up evaluation of cervical spine revealed severe stenosis of C3-C4. He was seen and evaluated by [facility] and underwent ACDF of C3-C4 on 11/06. He tolerated procedure well and blood loss was approximately 10 mL. He was discharged to home doing well. On discharge day #1 he developed a cough that occurred whenever he would eat or drink anything. Over the past 4 to 5 days he has had minimal intake due to everything he tries to take causes a coughing fit. Cough has been wet but is been unable to produce until today. Today he is producing clear foamy sputum. He also has hoarseness. He denies any neck pain and has been able to control pain with Tylenol. Also approximately 2 days ago he noticed a right-sided facial droop. He denies any excessive drooling or food coming out right side of mouth. He denies crystal difficulty swallowing, but attributes his difficulty swallowing due to coughing reflex. He denies any fever, chills, sweats, lightheadedness, dizziness, chest pain, shortness breath at rest, nausea, vomiting, abdominal pain, dysuria, increased urinary urgency and frequency, melena or hematochezia. He did state pain medications did cause urinary hesitancy and therefore he stopped narcotics and switch to Tylenol. This has since resolved. He does have chronic bilateral foot drop. He denies any focal weakness but complains of generalized weakness due to poor oral intake over the last several days. He does walk with a Rollator due to his bilateral foot drop and generally feels like he is having difficulty walking. In ED patient remained hemodynamically stable. He did have mild leukocytosis at 14.74, thrombocytopenia at 129, elevated total absolute lymphocytosis at 6.15, sodium 132, glucose 103, total bilirubin 2.7.Head and neck CTA reveal atherosclerotic vascular disease without high-grade stenosis dissection or aneurysm. Postoperative changes of discectomy at C3-C4 was noted. Moderate prevertebral edema with ill-defined 3.5 x 0.9 x 3.2 cm prevertebral collection extending from C3-C5 suggestive of probable postoperative seroma or hematoma. Otherwise no acute intracranial finding. His chest x-ray was negative. Given findings of right-sided facial droop TPA was contraindicated in setting of duration of symptoms approximately 2 days as well as recent surgery. Admission Exam (Per Admitting) Constitutional Constitutional: Tall, elderly, M, hoarse voice, nontoxic, WD/WN, vitals as above, NAD, sitting up in bed, pleasant, able to converse but appears difficult due to hoarseness Head: Normocephalic, Atraumatic Eyes: PERRL, conjunctivae normal, anicteric sclerae ENMT: external ear and nose normal, oropharynx normal, right-sided facial droop Neck: Right surgical incision CDI, trachea midline, no thyromegaly normal visual inspection Respiratory: normal respiratory effort, rhonchi noted anteriorly, deep inhalation stimulated cough, posteriorly lungs clear to auscultation, no wheeze, rales, rhonchi. Normal insp/exp effort, no accessory muscle use Cardiovascular: RRR, no murmur, no edema Vessels: no JVD or carotid bruit Chest: normal inspection of chest Abdomen: normal bowel sounds, soft, nontender, no hepatosplenomegaly Musculoskeletal: no cyanosis or clubbing, extremities motor strength 5/5, bilateral foot drop noted, weakness to bilateral dorsiflexion 4/5 Skin: no rashes, warm and dry normal turgor Neurologic: PERRL, EOMI, accommodation nl, no face palsy, no dysarthria CN's II-XI intact bilaterally and moves all extremities Psychiatric: A+Ox3, euthymic affect Lymphatic: no cervical or axillary lymphadenopathy : deferred Discharge Data Consultations 11/11/20 07:04 Consult Orthopedic Surgery Routine 11/11/20 07:44 ED Decision to Admit Stat 11/11/20 08:29 Consult Neurology Routine 11/13/20 11:04 Consult Otolaryngology (Head and Neck) Routine Procedures Performed CT angio neck with con, CT angio head wo/w CLINICAL HISTORY: 80 years-old Male with left facial weakness. Acute strokelike symptoms with left-sided facial weakness COMPARISON STUDY: Fluoroscopic images of the cervical spine 11/06/2020. TECHNIQUE: Following the IV administration of 120 mL of Optiray, CT angiogram of the head and neck was performed from the aortic arch to the skull base. Images are reviewed in the axial, sagittal, and coronal planes. 3-D MIPS images are created and assessed. IV contrast was administered without complication. All measurements were calculated based on NASCET criteria. Noncontrast head CT was also obtained. A dose lowering technique was utilized adhering to the principles of ALARA. CT DOSE: 1125.15 mGy.cm FINDINGS: CT HEAD: Age-related involutional changes. Extensive white matter hypodensities suggestive of chronic microvascular ischemic disease. Cerebral vascular calcifications. No acute intracranial hemorrhage, midline shift, abnormal extra- axial collection, hydrocephalus, intracranial mass or acute territorial infarct. No acute calvarial fracture. Mastoid air cells are clear. Small air-fluid levels within the maxillary sinuses. Unremarkable soft tissues. Prior bilateral lens repair. CTA HEAD AND NECK: Moderate atherosclerosis of the thoracic aortic arch. Patency of the innominate and imaged subclavian arteries. The common carotid arteries are widely patent. Mild atherosclerotic plaque of the left greater the right carotid bulb results in less than 50% luminal narrowing bilaterally. Atherosclerotic plaque at the o rigin of the left vertebral artery causes mild stenosis. The left vertebral artery is dominant. The middle and anterior cerebral arteries are patent. Hypoplastic right A1 segment is likely developmental. The basilar and posterior cerebral arteries are patent. Cerebral venous sinuses are patent. There is no abnormal intracranial enhancement. Anterior plate and screw fusion with discectomy at C3-C4. The hardware appears intact. 4 mm anterolisthesis C3 on C4 with 2 mm anterolisthesis C4 on C5. Severe C5-C6 intervertebral disc space narrowing with spondylitic spurring. Mild wedge deformity at T1 is likely chronic. Severe multilevel facet arthrosis. 1.4 x 0.6 x 0.7 cm hyperattenuating focus is noted within the prevertebral tissues anterior to the C4 vertebral body on image 164 series 6 with similar appearing subcentimeter material noted within the right neck superficial to the right internal carotid artery on image 140 series 6. Moderate prevertebral edema with 3.5 x 0.9 x 3.2 cm prevertebral collection centered at the C3-C4 level. The airway is patent. Mild wall thickening of the epiglottis is likely reactive. Multinodular thyroid. Lung apices are clear without pneumothorax. IMPRESSION: 1. Atherosclerotic vascular disease. No aneurysm, dissection, high-grade stenosis or arterial occlusion. 2. Postoperative changes of recent anterior plate and screw fusion with discectomy at C3-C4. The hardware appears intact and there is 4 mm anterolisthesis C3 on C4. 3. Moderate prevertebral edema with ill-defined 3.5 x 0.9 x 3.2 cm prevertebral collection extending from C3-C5 suggestive of a probable postoperative seroma or hematoma. This contains a 1.4 cm hyperattenuating focus which may represent packing material. Correlate with surgical history. 4. No acute intracranial abnormality. 5. Additional findings as above. ACT 112: Negative or not required by law. Brain MRI WITH AND WITHOUT CONTRAST HISTORY: Difficulty speaking. facial droop, stroke like sx TECHNIQUE: Multiplanar multisequence MRI of the brain was performed both before and after the intravenous administration of contrast. COMPARISON STUDY: Head and neck CTA 11/11/2020. FINDINGS: There is no mass, hematoma, midline shift, or acute infarct. The paranasal sinuses are clear. The mastoid air cells are clear. The ventricles and sulci demonstrate mild age-related involutional changes. Scattered foci of T2 hyperintensity seen within the periventricular and subcortical white matter are nonspecific but suggestive of moderate microvascular ischemic changes. The major vascular flow voids at the skull base are well-maintained. No abnormal enhancement. Small left occipital scalp lipoma. Trace fluid level within the maxillary sinuses. IMPRESSION: 1. No acute intracranial abnormality. 2. Trace fluid levels within the maxillary sinuses. ACT 112: Negative or not required by law. MR cervical spine wo con CLINICAL INDICATION: Cervical spinal surgery 11/06/2020, now unable to ambulate.. TECHNIQUE: Axial and sagittal T1 and T2-weighted and sagittal STIR images of the cervical spine were obtained without intravenous contrast administration. Comparison: None available at the time of this dictation. FINDINGS: Exam is limited by susceptibility artifact from surgical prosthesis. Disc space narrowing and degenerative endplate changes are most prominent at C2-C5. C2-C3: No significant disc herniation. Moderate bilateral neuroforaminal stenosis and mild canal stenosis. C3-C4: Facet arthropathy results in moderate bilateral neuroforaminal stenosis and severe spinal canal stenosis with compression and edema of the spine. C4-C5: There is a moderate disc bulge resulting in mild canal stenosis. There is moderate bilateral neural foraminal stenosis. C5-C6: Mild posterior disc bulge without significant spinal canal stenosis. Mild to moderate bilateral neural foraminal stenosis. C6-C7: No significant canal narrowing, mild neuroforaminal stenosis. C7-T1: There is no significant narrowing or foraminal stenosis. Edema is seen in the cervical spine most prominent at C2-C4. There are no intradural or extradural masses. The cerebellar tonsils are normally positioned. There is mild edema in the paraspinal soft tissues at the site of the implant, which likely represents reactive postsurgical changes. A mild syrinx is seen. IMPRESSION: 1. Multilevel facet arthropathy and degenerative changes resulting in neural foraminal stenosis at C2-C4 and severe canal stenosis at C3-C4 spinal cord compression and edema. Multilevel neuroforaminal stenosis as above. A call was placed with the patient's provider at the time of dictation. 2. Syrinx is noted extending into the thoracic spine. Recommend correlation with prior imaging available, otherwise imaging of the thoracic and lumbar spine may be performed to further assess this finding. ACT 112: Negative or not required by law. MR cervical spine wo con CLINICAL INDICATION: Cervical spinal surgery 11/06/2020, now unable to ambulate.. TECHNIQUE: Axial and sagittal T1 and T2-weighted and sagittal STIR images of the cervical spine were obtained without intravenous contrast administration. Comparison: None available at the time of this dictation. FINDINGS: Exam is limited by susceptibility artifact from surgical prosthesis. Disc space narrowing and degenerative endplate changes are most prominent at C2-C5. C2-C3: No significant disc herniation. Moderate bilateral neuroforaminal stenosis and mild canal stenosis. C3-C4: Facet arthropathy results in moderate bilateral neuroforaminal stenosis and severe spinal canal stenosis with compression and edema of the spine. C4-C5: There is a moderate disc bulge resulting in mild canal stenosis. There is moderate bilateral neural foraminal stenosis. C5-C6: Mild posterior disc bulge without significant spinal canal stenosis. Mild to moderate bilateral neural foraminal stenosis. C6-C7: No significant canal narrowing, mild neuroforaminal stenosis. C7-T1: There is no significant narrowing or foraminal stenosis. Edema is seen in the cervical spine most prominent at C2-C4. There are no intradural or extradural masses. The cerebellar tonsils are normally positioned. There is mild edema in the paraspinal soft tissues at the site of the implant, which likely represents reactive postsurgical changes. A mild syrinx is seen. IMPRESSION: 1. Multilevel facet arthropathy and degenerative changes resulting in neural foraminal stenosis at C2-C4 and severe canal stenosis at C3-C4 spinal cord compression and edema. Multilevel neuroforaminal stenosis as above. A call was placed with the patient's provider at the time of dictation. 2. Syrinx is noted extending into the thoracic spine. Recommend correlation with prior imaging available, otherwise imaging of the thoracic and lumbar spine may be performed to further assess this finding. ACT 112: Negative or not required by law. Hospital Course (1) Dysphagia: (2) Facial droop: (3) Voice hoarseness: (4) S/P cervical discectomy: per Dr. Bowden's notes: 80-year-old male with PMH of PMR, CIDP, cervical spinal stenosis status post ACDF of C3-C4 11/06, HLD and chronic bilateral foot drop presented to our ED 11/11 secondary to difficulty swallowing and cough since last 4 to 5 days. Per patient, after discharge on 11/07 he started having problem drinking/swallowing associated with cough [insulin dry lately with clear white sputum] and hoarseness which worsened since last 5 days. He also noted left-sided facial droop approximately 2 days ago. He denies any fever/chills/shaking/increased weakness anywhere in the body/other review of symptoms. He has not been able to eat/drink much due to coughing fit. Hence he feels weaker in overall sense. Is being managed for the following: Dysphagia in the context of recent anterior cervical discectomy and fusion Status post ACDF C3-C4 11/06 Dysphagia associated with mild facial droop, hoarseness Admitting CTA head and neck suggestive of prevertebral edema with probable postoperative seroma or hematoma. Admitting brain MRI: Negative for intracranial abnormality, trace fluid levels within the maxillary sinuses. Admitting EKG: Sinus rhythm with occasional PVCs. 11/12 echo: EF 55 to 60%, grade 1 diastolic dysfunction. No inter-atrial shunt. Lyme titer negative Neurology on board: Facial palsy and voice hoarseness could likely be related to fluid collection after recent surgical procedure versus recent intubation. Agrees with IV steroid and swallow study. Orthopedics on board: Recommending IV Decadron, will taper it down to stop in the next 1 to 2 days Speech therapy: 11/12 fees instrumental swallowing assessmentaspirated almost all consistencies, recommends ice chips and sips only right now and rechecking in a few days. ENT on board for evaluation of vocal cord involvement: 11/14 fiberoptic bronchoscopyboth vocal cords mobile. Slight sluggish movement of the right true vocal cord but no sign of paralysis given Decadron Taper Patient declined Video Swallow evaluation Bedside swallow evaluation performed- patient showed crystal aspiration to liquids Patient requests to advance diet further, with acceptance and understanding of Aspiration risk patient received soft diet for dinner- tolerated well as per patient discussed with ENT Dr. Thomas- he performed bedside swallow evaluation also on 11/14/20 and reports patient did well , advance diet to soft continue minced and moist diet--> advance to soft as tolerated patient understanding and accepting of risks of aspiration STRICT aspiration precautions continue Speech Therapy evaluation at [facility] discussed case with Dr. Jung continue Prednisone 20mg PO x 2 more doses continue PT/OT evaluation ff up with Dr. Jung in 1 week ff up with PCP in 1 week Frequent PVCs, V tach? - sinus rhythm with runs of PVCs/ non sustained V tach revealed by campus monitor - patient asymptomatic - K level normal - Echo: as per above - from Decadron taper? - continue to ff up as outpatient may need Zio patch monitor Multinodular Goiter - Please refer to full report in the Ordered Studies section above - Further work up, management, and ff up as outpatient Disposition: [facility] ff up with PCP in 1 week ff up with Dr. Jung in 1 week plan of care discussed with patient in detail and at length all questions answered he is understanding, agreeable, comfortable with the plan of care
[2020-11-16] MEDS ORDERED: predniSONE 20 MG TAB PO SCH (15:45)
== END 2020-11-16 16:10 | DRG 92 ==
LOC: ED 04:05 → 2S 04:05 → SUATTDRO 11-13 11:07 → 2S 11-14 18:22

== ENCOUNTER 2023-07-26 10:13 | Inpatient (IN) ==
[2023-07-26 11:03] LABS: Hematocrit (blood only) 43.8 % (42.0-52.0); Hemoglobin 14.8 g/dl (14.0-18.0); Mean Corpuscular Hgb Conc 33.8 g/dL (32.0-36.0); Mean Corpuscular Volume 91.6 fL (80.0-100.0); Mean Platelet Volume 9.7 fL (9.4-12.4); Platelet Count 103 K/uL (130-400); RDW Coefficient of Variation 13.2 % (11.5-14.5); RDW Standard Deviation 44.4 fL (36.4-46.3); Red Blood Count 4.78 M/uL (4.70-6.10); White Blood Count 10.47 K/ul (4.8-10.8)
--- NOTE | 2023-07-26 11:04 | Emergency Department Note ---
Impression & Plan Acute leg pain, Leg swelling ED Provider Note NAME: JELLY PHILLIPS AGE: 82 SEX: M : 1940 ARRIVES VIA: Ambulance INFORMANT: Patient, ED PROVIDER(S): Merry Zamorano MD CHIEF COMPLAINT: Weakness HPI: This is a 82-year-old male from [facility] presenting for weakness. Patient states that he woke up this morning and noted posterior leg pain. He is unable to stand due to this pain. Notes it is painful in his posterior thighs. He notes currently his left leg hurts more than the right. He notes chronic swelling and does not take any Lasix. He otherwise states feels fatigued. No chest pain, short of breath, fever, chills, nausea or vomiting. ROS: See above HPI for pertinent positives & negatives. A total of 10 systems reviewed and were otherwise negative. PHYSICAL EXAMINATION: General: resting comfortably in no acute distress Head: Normocephalic and atraumatic Eyes: Normal inspection, extraocular muscles intact Ear, nose, throat: Normal external exam Neck: Normal range of motion Respiratory: lungs clear to auscultation bilaterally Cardiovascular: Regular rate/rhythm, no murmur GI: soft, nontender, no guarding or rebound Extremities: 2+ edema bilateral lower extremity Neuro: The patient awake and alert, appropriately conversive, no focal deficits, symmetric faces Skin: Warm, dry, and intact MEDICAL DECISION MAKING: This is an 82-year-old male from [facility] presented for weakness. Patient's leg is painful, swollen. Consider electrolyte disturbance, muscle strain, DVT, hip fracture, femur fracture, Malcolm Blood work is reviewed showing no leukocytosis, anemia, electrolytes within normal limits. No significant elevated creatinine. Bilirubin 1.4 without clear etiology. Negative BNP. Urinalysis feels no signs UTI. DVT study x-ray of the negative. X-ray reveals no acute fracture of the hip/femur upon independent interpretation Patient attempted to ambulate and was unsuccessful. He was unsteady on his feet and having excruciating pain. Due to this require admission due to his leg pain/swelling/admit to ambulate. Differential diagnosis: See above ER treatment provided: See below Diagnostics interpreted by me: ECG: None Cardiac Monitoring: An order was placed for continuous cardiac monitoring. The monitor shows a rate of 76 with sinus rhythm. Laboratory studies: As stated above and show below. Imaging studies: See below. 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) PMR (polymyalgia rheumatica) Acute hyponatremia (Acute) Weakness (Acute) Acute urinary retention (Acute) Dysphagia Recurrent laryngeal nerve paralysis Voice hoarseness Cough DVT prophylaxis Facial droop S/P cervical discectomy HLD (hyperlipidemia) Hx of polymyalgia rheumatica (Acute) Myelopathy concurrent with and due to spinal stenosis of cervical region Left knee DJD History of total hip arthroplasty LEFT Encounter for pre-operative examination Status post revision of total replacement of left knee Medical History CIDP (chronic inflammatory demyelinating polyneuropathy) Hx of polymyalgia rheumatica Osteoarthritis PMR (polymyalgia rheumatica) Surgical History H/O hemorrhoidectomy History of cervical spinal surgery History of herniorrhaphy History of tonsillectomy History of total hip arthroplasty Hx of colonoscopy Hx of total knee replacement S/P appy Family History Mother Family history of diabetes mellitus Social History Smoking Status: Former smoker Tobacco Type: Cigarettes, Pipe and Cigars Smoking End Date: pt states he quit more than 30 years ago; Second Hand Exposure: No; Do You Dip or Chew Tobacco: No; Tobacco Cessation Education Requested by Patient: No Hx Alcohol Use: Yes Alcohol type: beer Alcohol type Comment: daily, last before 11/06 Hx Substance Use: No Preferred Language: [place] Citizen Communication Ability: Effective 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: No Beliefs That Will Affect Care: None marital status: Current Living Situation: Spouse and Personal Care Facility Current Living Situation Comment: lives in independent living in [facility] with Katie How many Children do You have: 0 Other Information That Helps Us Care for You: No Feels Safe at Home: Yes Safety Concerns: Feels Safe At This Time Assistive Devices: Walker Allergies Allergies Allergy/AdvReac Type Severity Reaction Status Date / Time Sulfa (Sulfonamide Allergy Intermediate Arm Verified 09/29/22 11:39 Antibiotics) swelling Home Meds Home Medications Medication Instructions Recorded Confirmed ascorbic acid (vitamin C) 500 mg 500 mg PO BID 11/18/17 07/26/23 capsule cholecalciferol (vitamin D3) 25 1,000 unit PO DAILY 11/18/17 07/26/23 mcg (1,000 unit) capsule (Vitamin D3) coQ10 (ubiquinol) 100 mg capsule 100 mg PO Q2D 11/18/17 07/26/23 fish,flax,primrose,borag 1 cap PO DAILY 11/11/20 07/26/23 oils-om3,6,9 no5 400 mg-400 mg-200 mg capsule ([place] 3-6-9 Fatty Acids) Previous Rx's Medication Instructions Recorded tamsulosin 0.4 mg capsule 0.4 mg PO QAM #30 caps 10/10/22 Results & Data (ED) Vital Signs Vital Signs - 24 hr 07/26/23 10:30 07/26/23 10:30 07/26/23 10:32 Temperature 37.2 C Temperature Source Oral Pulse Rate 82 80 Respiratory Rate 18 Blood Pressure 117/75 Blood Pressure Mean 89 Pulse Oximetry 94 94 Oxygen Delivery Method Room Air Room Air Sepsis Recent Fever Within 48 Hours Yes Sepsis New/Unexplained Change in Mental Status N/A Sepsis Action Taken by Nursing No Action Required Laboratory Data 07/26/23 14:28 07/27/23 06:01 Lab Results 07/26/23 07/26/23 07/26/23 Range/Units 10:29 10:38 14:28 WBC 10.47 10.44 (4.8-10.8) K/ul RBC 4.78 4.77 (4.70-6.10) M/uL Hgb 14.8 15.0 (14.0-18.0) g/dl Hct 43.8 43.9 (42.0-52.0) % MCV 91.6 92.0 (80.0-100.0) fL MCH 31.0 31.4 (25.0-34.0) pg MCHC 33.8 34.2 (32.0-36.0) g/dL RDW Std Deviation 44.4 45.3 (36.4-46.3) fL RDW Coeff of Liliam 13.2 13.2 (11.5-14.5) % Plt Count 103 L 107 L (130-400) K/uL MPV 9.7 10.2 (9.4-12.4) fL Immature Gran % (Auto) 0.4 0.3 % Neut % (Auto) 60.6 61.2 % Lymph % (Auto) 36.8 36.2 % [place] % (Auto) 1.9 1.9 % Eos % (Auto) 0.1 0.1 % Baso % (Auto) 0.2 0.3 % Neut # (Auto) 6.35 6.39 (1.40-6.50) K/uL Lymph # (Auto) 3.85 H 3.78 H (1.20-3.40) K/uL [place] # (Auto) 0.20 0.20 (0.11-0.59) K/uL Eos # (Auto) 0.01 0.01 (0.00-0.50) K/uL Baso # (Auto) 0.02 0.03 (0.00-0.20) K/uL Immature Gran # (Auto) 0.04 0.03 (0.01-0.20) K/uL Hairy Cells Present ESR 4 (0-20) mm/hr Sodium 133 L (136-145) mmol/L Potassium 4.4 (3.5-5.1) mmol/L Chloride 100 (98-107) mmol/L Carbon Dioxide 28 (21-32) mmol/L Anion Gap 5 (3-11) BUN 12 (6-23) mg/dl Creatinine 0.55 L (0.6-1.4) mg/dl Est Cr Clr Drug Dosing 111.4 ml/min Est GFR ( Amer) 110.9 ml/min Est GFR (Non-Af Amer) 95.7 ml/min BUN/Creatinine Ratio 21.8 H (10-20) Glucose 140 H (70-99(Fasting)) mg/dl Calcium 8.9 (8.6-10.3) mg/dl Magnesium 1.9 (1.7-2.4) mg/dl Total Bilirubin 1.4 H (0.2-1.0) mg/dl Direct Bilirubin 0.2 (0-0.2) mg/dl AST 23 (13-39) U/L ALT 13 (7-52) U/L Alkaline Phosphatase 76 (34-104) U/L Total Creatine Kinase 66 (30-223) U/L C-Reactive Protein < 0.50 (0-0.5) mg/dl B-Natriuretic Peptide 61 (0-100) pg/ml Total Protein 6.3 (6.0-8.3) gm/dl Albumin 4.3 (3.4-5.0) gm/dl Lyme Disease Screen (Negative) 07/26/23 Range/Units 14:37 WBC (4.8-10.8) K/ul RBC (4.70-6.10) M/uL Hgb (14.0-18.0) g/dl Hct (42.0-52.0) % MCV (80.0-100.0) fL MCH (25.0-34.0) pg MCHC (32.0-36.0) g/dL RDW Std Deviation (36.4-46.3) fL RDW Coeff of Liliam (11.5-14.5) % Plt Count (130-400) K/uL MPV (9.4-12.4) fL Immature Gran % (Auto) % Neut % (Auto) % Lymph % (Auto) % [place] % (Auto) % Eos % (Auto) % Baso % (Auto) % Neut # (Auto) (1.40-6.50) K/uL Lymph # (Auto) (1.20-3.40) K/uL [place] # (Auto) (0.11-0.59) K/uL Eos # (Auto) (0.00-0.50) K/uL Baso # (Auto) (0.00-0.20) K/uL Immature Gran # (Auto) (0.01-0.20) K/uL Hairy Cells ESR (0-20) mm/hr Sodium (136-145) mmol/L Potassium (3.5-5.1) mmol/L Chloride (98-107) mmol/L Carbon Dioxide (21-32) mmol/L Anion Gap (3-11) BUN (6-23) mg/dl Creatinine (0.6-1.4) mg/dl Est Cr Clr Drug Dosing ml/min Est GFR ( Amer) ml/min Est GFR (Non-Af Amer) ml/min BUN/Creatinine Ratio (10-20) Glucose (70-99(Fasting)) mg/dl Calcium (8.6-10.3) mg/dl Magnesium (1.7-2.4) mg/dl Total Bilirubin (0.2-1.0) mg/dl Direct Bilirubin (0-0.2) mg/dl AST (13-39) U/L ALT (7-52) U/L Alkaline Phosphatase (34-104) U/L Total Creatine Kinase (30-223) U/L C-Reactive Protein (0-0.5) mg/dl B-Natriuretic Peptide (0-100) pg/ml Total Protein (6.0-8.3) gm/dl Albumin (3.4-5.0) gm/dl Lyme Disease Screen Negative (Negative) Administered Medications Ascorbic Acid (Ascorbic Acid 500 Mg Tab) 500 mg PO BID VALE Stop: 08/25/23 20:59 Last Admin: 07/27/23 08:19 Dose: 500 mg Documented By: Admin: 07/26/23 20:04 Dose: 500 mg Documented By: REJI Fish Oil ([place]-3 (Purified Fish Oil) 1 Gm Cap) 1 gm PO DAILY VALE Stop: 08/26/23 08:59 Last Admin: 07/27/23 08:20 Dose: 1 gm Documented By: ANITA Heparin Sodium (Porcine) (Heparin Sod 5,000 Unit/0.5 Ml Vial) 5,000 units SQ Q12 VALE Stop: 08/25/23 20:59 Last Admin: 07/27/23 08:19 Dose: 5,000 units Documented By: Admin: 07/26/23 20:05 Dose: 5,000 units Documented By: REJI Tamsulosin HCl (Tamsulosin Hcl 0.4 Mg Cap) 0.4 mg PO QAM VALE Stop: 08/26/23 08:59 Last Admin: 07/27/23 08:20 Dose: 0.4 mg Documented By: ANITA Vitamin D (Cholecalciferol 25 Mcg (1000 Units) Tab) 25 mcg PO DAILY VALE Stop: 08/26/23 08:59 Last Admin: 07/27/23 08:20 Dose: 25 mcg Documented By: ANITA Discontinued Medications Ketorolac Tromethamine (Ketorolac Tromethamine 15 Mg/Ml Vial) 15 mg IV NOW ONE Stop: 07/26/23 11:55 Last Admin: 07/26/23 12:02 Dose: 15 mg Documented By: ADRIANNA Non-Formulary Medication (Coq10 (Ubiquinol)) 100 mg PO Q2D VALE Stop: 08/25/23 16:40 Last Admin: 07/26/23 17:55 Dose: Not Given Documented By: LMM Discharge Plan Visit Data Chief Complaint: Weakness Stated Complaint: WEAKNESS ED Provider: Merry Zamorano Discharge Problem: Acute leg pain, Leg swelling Patient Disposition: Admitted As Inpatient Discharge Instructions Interventions: ED Discharge Assessment Last Done: 07/26/23 16:35
[2023-07-26 11:05] LABS: Alanine Aminotransferase 13 U/L (7-52); Albumin Level 4.3 gm/dl (3.4-5.0); Alkaline Phosphatase 76 U/L (34-104); Anion Gap 5 (3-11); Aspartate Aminotransferase 23 U/L (13-39); BUN Creatinine Ratio 21.8 (10-20); Bilirubin Direct 0.2 mg/dl (0-0.2); Bilirubin,Total 1.4 mg/dl (0.2-1.0); Blood Urea Nitrogen 12 mg/dl (6-23); Calcium 8.9 mg/dl (8.6-10.3); Carbon Dioxide 28 mmol/L (21-32); Chloride 100 mmol/L (98-107); Creatinine Clr Calc Pharmacy 111.4 ml/min; Est GFR (African American) 110.9 ml/min; Est GFR (Non-African American) 95.7 ml/min; Glucose 140 mg/dl (70-99(Fasting)); Magnesium 1.9 mg/dl (1.7-2.4); Potassium 4.4 mmol/L (3.5-5.1); Sodium 133 mmol/L (136-145); Total Protein 6.3 gm/dl (6.0-8.3)
[2023-07-26 11:28] LABS: Basophils # (auto) 0.02 K/uL (0.00-0.20); Basophils % (auto) 0.2 %; Eosinophils # (auto) 0.01 K/uL (0.00-0.50); Eosinophils % (auto) 0.1 %; Immature Granulocytes # (auto) 0.04 K/uL (0.01-0.20); Immature Granulocytes % (auto) 0.4 %; Lymphocytes # (auto) 3.85 K/uL (1.20-3.40); Lymphocytes % (auto) 36.8 %; Monocytes % (auto) 1.9 %; Neutrophils # (auto) 6.35 K/uL (1.40-6.50); Neutrophils % (auto) 60.6 %
--- NOTE | 2023-07-26 11:56 | XRay Report ---
XR femur LT 1V, XR hip LT 2V w pelvis CLINICAL HISTORY: pain, mid femur TECHNIQUE: 2 radiographic views of the right femur and 2 views of the left hip with a single view of the pelvis were obtained. Comparison: None available at the time of this dictation. FINDINGS: There is no evidence of an acute fracture. Extensive degenerative changes are seen in the left hip heather int. Right total hip arthroplasty and left knee arthroplasty are seen. The soft tissues are unremarka ble. IMPRESSION: Extensive degenerative changes in the hip joint without evidence of acute fracture. ACT 112: Negative or not required by law. Electronically signed by: Polo Osborne M.D. 07/26/2023 11:55 AM
[2023-07-26] MEDS: KETOROLAC TROMETHAMINE 15 MG/ML VIAL IV ONE (12:02)
--- NOTE | 2023-07-26 12:04 | Ultrasound Report ---
US venous doppler LE LT CLINICAL HISTORY: leg pain TECHNIQUE: Left lower extremity real-time compression venous ultrasound with Color Doppler imaging. U tilizing real-time ultrasonic imaging multiple real time high-resolution ultrasonic images with compr ession and noncompression maneuvers of the deep venous system in addition to color doppler imaging we re performed from the common femoral vein through the proximal calf veins. COMPARISON: None available at the time of this dictation. FINDINGS/IMPRESSION: Currently there is normal compressibility of the deep venous system from the common femoral vein thro ugh the proximal calf veins. No superficial venous thrombosis is identified. ACT 112: Negative or not required by law. Electronically signed by: Polo Osborne M.D. 07/26/2023 12:02 PM
[2023-07-26 12:33] LABS: Appearance Urine Clear (Clear); Bacteria Urine Automated None Seen (None Seen); Bilirubin Urine Negative (Negative); Blood Urine Negative (Negative); Color Urine Yellow; Epithelial Cell Urine Auto 0-2 /hpf (0-2); Glucose Urine UA Negative (Negative); Ketones Urine 1+ (Negative); Leukocyte Esterase Urine Trace (Negative); Nitrite Urine Negative (Negative); Protein Urine 1+ (Negative); Specific Gravity Urine 1.017 (1.000-1.030); Urobilinogen Urine Negative (Negative); WBC Urine Automated 0-5 /hpf (0-5); pH Urine >= 9.0 (4.5-7.5)
--- NOTE | 2023-07-26 14:32 | History & Physical Report ---
Date of Service July 26, 2023 Assessment & Plan (1) Weakness: Plan: Weakness, leg pain, myalgias Limiting patient's ability to walk, failed ambulatory trial in the ER. PT/OT has been ordered No leukocytosis No urinary symptoms. UA pending Femur/hip x-ray without evidence of fracture Dopplers with no evidence of DVT. Has history of chronic leg swelling without heart failure. Last echo with preserved EF and no diastolic dysfunction. Denies history of orthopnea/CHF. BNP is not elevated, do not suspect CHF. Diuresis deferred, chronic venous stasis precautions, mobilization, compression to help mobilize fluid. Patient with bilateral muscle aches, generalized fatigue, and some dry cough. CRP/ESR pending for history of PMR flare. Added respiratory quad screen for viral illness with myalgias Lyme test pending Also has history of chronic inflammatory demyelinating polyneuropathy. He does have some chronic paresthesias. While his strength reaches around 4+/5 bilaterally, he has delayed peak of intensity, and weakness is with proximal lower extremity involvement. Right ankle dorsiflexion is chronically impaired, no acute change per patient and on exam compared to prior. 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 Was investigated 2020 with a normal MRI. DVT prophylaxis: Heparin CODE STATUS: DNR/DNI Diet: Regular History of Present Illness Primary Care Provider: [facility] Henok Molina is a 82-year-old male with a past medical history of weakness, chronic inflammatory demyelinating polyneuropathy, PMR, hyponatremia, and urinary retention who presents from [facility] for weakness, posterior leg pain limiting ambulation, and with left greater than right calf discomfort. He has chronic lower extremity swelling without a history of CHF. Does have a history of PMR 1 dya bilateral thigh pain, cramping sensation. L leg strength intact but limited by calf/thigh discomfort. Was attempted to be d/koki from ER, but failed ambulatory trial x2 and was recommended for impatient admission Did have notable pitting edema in leg without history of CHF, ?venous stasis vs CHF with too much weight retention to ambulate Henok is seen at the bedside. She reports that he was unable to ambulate this morning due to aching pain mostly in his thighs, and a little bit in both calfs. He does not have numbness or tingling in the extremities and does not have back pain. He does have a history of cervical stenosis s/p decompression with a main symptom of numbness tingling in his hands at the time, he reports that is done well and his symptoms have actually been greatly improved with no recent worsening. He reports his symptoms do not feel similar to prior PMR flares as he does not usually get the PMR pain in his thighs. He reports it is an aching pain. He feels overall fatigued and weak. Denies fever/chills/night sweats. He has had no chest pain or chest pressure. No abdominal pain. He has had a dry cough in the last few days which she attributes to allergies. No sputum production. Denies dyspnea. Medical History: Reviewed Medications: Reviewed Surgical History: Reviewed Family history: Reviewed Allergies: Reviewed Social History: 1 beer per day, with recent alcohol free days, no history of withdrawal/aches Code Status: DNR/DNI Allergies Allergy/AdvReac Type Severity Reaction Status Date / Time Sulfa (Sulfonamide Allergy Intermediate Arm Verified 09/29/22 11:39 Antibiotics) swelling Home Medications Medication Instructions Recorded Confirmed Type ascorbic acid (vitamin C) 500 mg 500 mg PO BID 11/18/17 07/26/23 History capsule cholecalciferol (vitamin D3) 25 1,000 unit PO DAILY 11/18/17 07/26/23 History mcg (1,000 unit) capsule (Vitamin D3) coQ10 (ubiquinol) 100 mg capsule 100 mg PO Q2D 11/18/17 07/26/23 History fish,flax,primrose,borag 1 cap PO DAILY 11/11/20 07/26/23 History oils-om3,6,9 no5 400 mg-400 mg-200 mg capsule ([place] 3-6-9 Fatty Acids) tamsulosin 0.4 mg capsule 0.4 mg PO QAM #30 caps 10/10/22 07/26/23 Rx Past Med/Surg History Problem List 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) PMR (polymyalgia rheumatica) Acute hyponatremia (Acute) Weakness (Acute) Acute urinary retention (Acute) Dysphagia Recurrent laryngeal nerve paralysis Voice hoarseness Cough DVT prophylaxis Facial droop S/P cervical discectomy HLD (hyperlipidemia) Hx of polymyalgia rheumatica (Acute) Myelopathy concurrent with and due to spinal stenosis of cervical region Left knee DJD History of total hip arthroplasty LEFT Encounter for pre-operative examination Status post revision of total replacement of left knee Medical History CIDP (chronic inflammatory demyelinating polyneuropathy) Hx of polymyalgia rheumatica Osteoarthritis PMR (polymyalgia rheumatica) Surgical History H/O hemorrhoidectomy History of cervical spinal surgery History of herniorrhaphy History of tonsillectomy History of total hip arthroplasty Hx of colonoscopy Hx of total knee replacement S/P appy Family History Mother Family history of diabetes mellitus Social History Smoking Status: Former smoker Second Hand Exposure: No; Do You Dip or Chew Tobacco: No; Hx Alcohol Use: Yes Alcohol type: beer Alcohol type Comment: daily, last before 11/06 Hx Substance Use: No Preferred Language: [place]ian Communication Ability: Effective 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 NAD. Cooperative. HEENT: Atraumatic, normocephalic. Pulm: CTAB A&P. -wheezes, -rales, -rhonchi. Symmetrical chest rise. No increased work of breathing. No respiratory distress. Cardiac: RRR, -mrg. Radial pulses intact and symmetrical. No JVD Abdominal: Nontender, nondistended, soft. BS present. Extremities: 2+ pitting edema bilaterally. Hip flexion 4+/5 bilaterally with delayed effort to peak strength, 5/5 ankle plantarflexion bilaterally, 34 -/5 right ankle dorsiflexion, 5/5 right ankle dorsiflexion. 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 Sensation is grossly intact to soft touch in hands and feet bilaterally, does endorse some paresthesias in the thighs bilaterally. No back pain/midline spinal tenderness Endorses tenderness of the muscles in his proximal anterior and posterior thighs bilaterally, this tenderness is not significantly worsened on palpation. No overlying contusion/hematoma. Results & Data Results & Data Vital Signs (Past 12 Hours) Vital Signs Temp Pulse Pulse Resp BP BP Pulse Ox 07/26/23 14:22 81 19 124/69 98 07/26/23 12:16 85 19 140/77 96 07/26/23 10:32 80 07/26/23 10:30 94 07/26/23 10:30 37.2 C 82 18 117/75 94 O2 Del Method 07/26/23 14:22 Room Air 07/26/23 12:16 Room Air 07/26/23 10:32 07/26/23 10:30 Room Air 07/26/23 10:30 Room Air PG Care Time/CCT Total # of Minutes Spent Total Time Spent with Patient: Total time spent is greater than 50% in coordination of care (as documented) at patient's floor/unit and/or counseling patient: Coding Level of Care Code 96432 INT INP/OBS CARE 2/55MIN Diagnoses Weakness R53.1 PMR (polymyalgia rheumatica) M35.3 BPH w urinary obs/LUTS N40.1; N13.8
[2023-07-26 14:53] LABS: C Reactive Protein < 0.50 mg/dl (0-0.5); Creatine Kinase 66 U/L (30-223)
[2023-07-26 15:34] LABS: Influenza A virus by PCR Negative (Neg); Influenza B virus by PCR Negative (Neg); RSV by PCR Negative (Neg); SARS CoV2 RNA(COVID-19) Ceph NEGATIVE (Negative)
--- NOTE | 2023-07-26 15:42 | XRay Report ---
XR chest 1V portable CLINICAL HISTORY: ?CHF TECHNIQUE: Single frontal radiograph of the chest was obtained. Comparison: Comparison is made to chest radiograph 09/19/2022 FINDINGS: No lines and tubes are seen. Cardiomegaly is noted. The aortic arch is calcified. The lungs are clear . No evidence of pleural effusion or pneumothorax. IMPRESSION: No acute chest disease and in particular no pulmonary edema. Cardiomegaly is noted. ACT 112: Negative or not required by law. Electronically signed by: Polo Osborne M.D. 07/26/2023 3:40 PM
[2023-07-26] MEDS ORDERED: POLYETHYLENE (MIRALAX) 17 GM PACK PO PRN (16:41)
[2023-07-26 17:07] LABS: Hematocrit (blood only) 43.9 % (42.0-52.0); Mean Corpuscular Hemoglobin 31.4 pg (25.0-34.0); Mean Corpuscular Hgb Conc 34.2 g/dL (32.0-36.0); Mean Platelet Volume 10.2 fL (9.4-12.4); Platelet Count 107 K/uL (130-400); RDW Coefficient of Variation 13.2 % (11.5-14.5); RDW Standard Deviation 45.3 fL (36.4-46.3); Red Blood Count 4.77 M/uL (4.70-6.10); White Blood Count 10.44 K/ul (4.8-10.8)
[2023-07-26] MEDS: NON-FORMULARY MEDICATION (Coq10 (Ubiquinol) 100 mg Capsule) PO SCH (17:55)
[2023-07-26 18:02] LABS: Basophils # (auto) 0.03 K/uL (0.00-0.20); Basophils % (auto) 0.3 %; Eosinophils # (auto) 0.01 K/uL (0.00-0.50); Eosinophils % (auto) 0.1 %; Hairy Cells Present; Immature Granulocytes # (auto) 0.03 K/uL (0.01-0.20); Immature Granulocytes % (auto) 0.3 %; Lymphocytes # (auto) 3.78 K/uL (1.20-3.40); Lymphocytes % (auto) 36.2 %; Monocytes % (auto) 1.9 %; Neutrophils # (auto) 6.39 K/uL (1.40-6.50); Neutrophils % (auto) 61.2 %
[2023-07-26] MEDS ORDERED: KETOROLAC TROMETHAMINE 15 MG/ML VIAL IV PRN (20:00)
[2023-07-26] MEDS: ASCORBIC ACID 500 MG TAB PO SCH (20:04)
[2023-07-26] MEDS: HEPARIN SOD 5,000 UNIT/0.5 ML VIAL SQ SCH (20:05)
[2023-07-27 07:17] LABS: BUN Creatinine Ratio 44.2 (10-20); C Reactive Protein 0.83 mg/dl (0-0.5); Calcium 8.6 mg/dl (8.6-10.3); Creatinine Clr Calc Pharmacy 142.5 ml/min; Est GFR (African American) 122.7 ml/min; Est GFR (Non-African American) 105.9 ml/min; Potassium 4.1 mmol/L (3.5-5.1)
[2023-07-27] MEDS: CHOLECALCIFEROL 25 MCG (1000 UNITS) TAB PO SCH (08:20)
[2023-07-27] MEDS: OMEGA-3 (PURIFIED FISH OIL) 1 GM CAP PO SCH (08:20)
[2023-07-27] MEDS: TAMSULOSIN HCL 0.4 MG CAP PO SCH (08:20)
--- NOTE | 2023-07-27 08:35 | Hospitalist Progress Note ---
Date of Service July 27, 2023 Assessment & Plan (1) Weakness: Plan: Likely chronic inflammatory demyelinating polyneuropathy weakness, leg pain, myalgias, failed ambulatory trial in the ER. bilateral muscle aches, generalized fatigue, and some dry cough. CRP/ESR is normal typically clinically excluded PMR flare Patient does not have significant hyponatremia as she has had in the past to be associate with encephalopathy PT/OT has been ordered Femur/hip x-ray without evidence of fracture Dopplers with no evidence of DVT. Has history of chronic leg swelling without heart failure. Last echo with preserved EF and no diastolic dysfunction. Diuresis deferred, chronic venous stasis precautions, mobilization, compression to help mobilize fluid. 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 Was investigated 2020 with a normal MRI. DVT prophylaxis: Heparin CODE STATUS: DNR/DNI Admission and Anticipated Discharge Date Admission Date: July 26, 2023 Subjective pt is slightly confused and not quite sure while he is here. He endorses no real improvement. He does state that he is here because of his decline in function ambulation but cannot endorse pain in his legs. Speaking to his he has been on the decline of late he has been telling her he does not want to live anymore with decline in physical function. In the past he has been diagnosed with CIDP and has been resistant to treatment such as immunoglobulin therapy. According to the his quality of life is declined and she is power of deputy county attorney. I do not feel he is completely competent to make significant medical decisions and the is in agreement to consider palliative care consultation. At this point time she does not wish for any invasive diagnostic testing specifically question about MRI of the brain or spine. She said no to these. Physical Exam Physical Exam: He is awake he is oriented x 2 he is not sure where he is at this moment He has 4/5 bilateral upper extremity strength but 3/5 bilateral lower extremity strength. Reflexes are difficult to elicit in his legs because of a previous knee replacement but his right knee has very diminished reflexes there is no hyperreflexia Patient has masklike facies Patient's card exam is distant and regular without murmurs lungs are clear Results & Data Results & Data Vital Signs (Past 12 Hours) Vital Signs Temp Pulse Resp BP Pulse Ox O2 Del Method 07/27/23 06:59 98.2 F 74 18 120/75 98 Room Air Laboratory Results Reviewed CBC reviewed chemistry Normal ESR Discussed goals of care with PG Care Time/CCT Total # of Minutes Spent Total Time Spent with Patient: Total time spent is greater than 50% in coordination of care (as documented) at patient's floor/unit and/or counseling patient: Coding Level of Care Code 71248 SUB INP/OBS CARE 3/50MIN Diagnoses Weakness R53.1 BPH w urinary obs/LUTS N40.1; N13.8
--- NOTE | 2023-07-27 20:35 | Palliative Care Consultation ---
Date of Consultation July 27, 2023 Assessment & Plan (1) Weakness generalized: (2) Altered mental status: (3) Declining mobility: (4) Discussion about advance care planning held with family member: Face to face ACP with Mr. Lewis x 30min he shares that his brother was dx with same illness and within a month, with a very rapid course of the same illness. Patient is distressed as he shares details of his brother's rapid decline. Pt struggles with feelings of guilt, his disease has been slower to progress. He feels PT is helping. He states his brother's made him start contemplating his mortality: he and his live in the cottages at [facility] and he wants to return there is and have his care in one place. He does not want to come back and forth to the hospital for what he recognizes is going to be an inevitable end. He wants to remain in his home and if needed would be open to moving into SNF at [facility]; has been thinking about hospice and we discussed the hospice benefit. He likes the idea on nursing teams coming to him and managing him at home but for now he declines hospice and wants to speak further with Dr Nuno at [facility]. He is happy with the current plan of care: dc from [facility], return to [facility], continue PT and contemplate hospice with PCP. (5) Palliative care by specialist: Plan GOC noted I am available to meet with pt and if they desire and offered pt OP follow up as well. For now, will sign off as GOC are delineated in ACP discussion above. Thank you for allowing us to participate in the ongoing care of this patient. Please don't hesitate to call or page with any additional concerns. Dr. Monica Costa DNP Director, Palliative Care History of Present Illness Reason for Consultation: likely transition to comfort Attending Physician: Ricardo eRgan History of Present Illness Mr. Lewis is an 82yo male with 07/26/23 admission for weakness, myalgias BLE pain, declining ambulatory ability. He was confused on arrival and per family, cognition has been declining. He is not felt to be decisionally intact and his is SDM. Admitted for mgt of likely chronic inflammatory demyelinating polyneuropathy. Unfortunately, he did not tolerate ambulatory trial in the ER. C/o bilateral myalgia, fatigues. Labs show a normal CRP/ESR Imaging did not reveal CHF flare or fractures, no venous compression He resides at [facility] under the care of Dr Nuno. 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/had normal mRI in 2020; +PMR, hyponatremia, and urinary retention/BPH with LUTS Per primary team note, "Discussion with , who feels the patient has been a decline of recent and does not of quality of life, she wishes for the patient to be evaluated for palliative care and transition back to [facility] likely on hospice care once coordination of care is complete." he is seen bedside, no family present he is awake and alert denies acute pain or distress tolerated breakfast and denies n/v/d/c Allergies Allergy/AdvReac Type Severity Reaction Status Date / Time Sulfa (Sulfonamide Allergy Intermediate Arm Verified 09/29/22 11:39 Antibiotics) swelling Home Medications Medication Instructions Recorded Confirmed Type ascorbic acid (vitamin C) 500 mg 500 mg PO BID 11/18/17 07/26/23 History capsule cholecalciferol (vitamin D3) 25 1,000 unit PO DAILY 11/18/17 07/26/23 History mcg (1,000 unit) capsule (Vitamin D3) coQ10 (ubiquinol) 100 mg capsule 100 mg PO Q2D 11/18/17 07/26/23 History fish,flax,primrose,borag 1 cap PO DAILY 11/11/20 07/26/23 History oils-om3,6,9 no5 400 mg-400 mg-200 mg capsule ([place] 3-6-9 Fatty Acids) tamsulosin 0.4 mg capsule 0.4 mg PO QAM #30 caps 10/10/22 07/26/23 Rx Patient History Medical History CIDP (chronic inflammatory demyelinating polyneuropathy) Hx of polymyalgia rheumatica Osteoarthritis PMR (polymyalgia rheumatica) Surgical History H/O hemorrhoidectomy History of cervical spinal surgery History of herniorrhaphy History of tonsillectomy History of total hip arthroplasty Hx of colonoscopy Hx of total knee replacement S/P appy Family History Mother Family history of diabetes mellitus Social History Smoking Status: Former smoker Tobacco Type: Cigarettes, Pipe and Cigars Smoking End Date: pt states he quit more than 30 years ago; Second Hand Exposure: No; Do You Dip or Chew Tobacco: No; Tobacco Cessation Education Requested by Patient: No Hx Alcohol Use: Yes Alcohol type: beer Alcohol type Comment: daily, last before 11/06 Hx Substance Use: No Preferred Language: Albanian Communication Ability: Effective Hoe Worker Required: No Beliefs That Will Affect Care: None marital status: Current Living Situation: Spouse and Personal Care Facility Current Living Situation Comment: lives in independent living in [facility] with Katie How many Children do You have: 0 Other Information That Helps Us Care for You: No Feels Safe at Home: Yes Safety Concerns: Feels Safe At This Time Assistive Devices: Walker Review of Systems Review of Systems: All systems reviewed & are unremarkable except as noted in Subjective Physical Exam Constitutional: + ill appearing, + thin, + frail appeari ng and cooperative Eyes: PERRL, conjunctivae normal, anicteric sclerae ENMT: Mouth: + dental restorations; oral mucous membranes not dry, dentition not poor, no chipped teeth and no loose teeth Neck: trachea midline, no thyromegaly Respiratory: + uses accessory muscles, + cough, able to speak in complete sentences and symmetric chest movement Auscultation: lungs clear to auscult ation bilaterally and + diminished lung sounds Cardiovascular: Rate/Rhythm: regular rate and regular rhythm Gastrointestinal (Abdomen): normal bowel sounds, soft, nontender, no hepatosplenomegaly Percussion/Palpation: abdomen soft Musculoskeletal: +gen weakness, diminished strength BLE > > BUE Skin: pale, warm Neurologic: AAOx3, related history of illness and trajectory Results & Data Vital Signs (Past 12 Hours) Vital Signs Temp Pulse Resp BP BP Pulse Ox O2 Del Method 07/27/23 19:40 37.0 C 84 18 136/77 94 Room Air 07/27/23 15:16 36.7 C 76 16 141/68 H 96 Room Air Laboratory Results 07/27/23 07/26/23 07/26/23 Range/Units 06:01 Unknown 14:37 WBC (4.8-10.8) K/ul RBC (4.70-6.10) M/uL Hgb (14.0-18.0) g/dl Hct (42.0-52.0) % MCV (80.0-100.0) fL MCH (25.0-34.0) pg MCHC (32.0-36.0) g/dL RDW Std Deviation (36.4-46.3) fL RDW Coeff of Liliam (11.5-14.5) % Plt Count (130-400) K/uL MPV (9.4-12.4) fL Immature Gran % (Auto) % Neut % (Auto) % Lymph % (Auto) % [place] % (Auto) % Eos % (Auto) % Baso % (Auto) % Neut # (Auto) (1.40-6.50) K/uL Lymph # (Auto) (1.20-3.40) K/uL [place] # (Auto) (0.11-0.59) K/uL Eos # (Auto) (0.00-0.50) K/uL Baso # (Auto) (0.00-0.20) K/uL Immature Gran # (Auto) (0.01-0.20) K/uL Hairy Cells ESR (0-20) mm/hr Sodium 135 L (136-145) mmol/L Potassium 4.1 (3.5-5.1) mmol/L Chloride 101 (98-107) mmol/L Carbon Dioxide 28 (21-32) mmol/L Anion Gap 6 (3-11) BUN 19 (6-23) mg/dl Creatinine 0.43 L (0.6-1.4) mg/dl Est Cr Clr Drug Dosing 142.5 ml/min Est GFR ( Amer) 122.7 ml/min Est GFR (Non-Af Amer) 105.9 ml/min BUN/Creatinine Ratio 44.2 H (10-20) Glucose 115 H (70-99(Fasting)) mg/dl Calcium 8.6 (8.6-10.3) mg/dl Magnesium (1.7-2.4) mg/dl Total Bilirubin (0.2-1.0) mg/dl Direct Bilirubin (0-0.2) mg/dl AST (13-39) U/L ALT (7-52) U/L Alkaline Phosphatase (34-104) U/L Total Creatine Kinase (30-223) U/L C-Reactive Protein 0.83 H (0-0.5) mg/dl B-Natriuretic Peptide (0-100) pg/ml Total Protein (6.0-8.3) gm/dl Albumin (3.4-5.0) gm/dl Urine Color Yellow Urine Appearance Clear (Clear) Urine pH >= 9.0 H (4.5-7.5) Ur Specific [place] 1.017 (1.000-1.030) Urine Protein 1+ H (Negative) Urine Glucose (UA) Negative (Negative) Urine Ketones 1+ H (Negative) Urine Blood Negative (Negative) Urine Nitrite Negative (Negative) Urine Bilirubin Negative (Negative) Urine Urobilinogen Negative (Negative) Ur Leukocyte Esterase Trace H (Negative) Urine WBC (Auto) 0-5 (0-5) /hpf Urine RBC (Auto) 6-10 H (0-2) /hpf U Hyaline Cast (Auto) 3-5 H (0-2) /lpf U Epithel Cells (Auto) 0-2 (0-2) /hpf Urine Bacteria (Auto) None Seen (None Seen) Lyme Disease Screen Negative (Negative) SARS-CoV-2 (PCR) NEGATIVE (Negative) Influenza Type A (PCR) Negative (Neg) Influenza Type B (PCR) Negative (Neg) RSV (RT-PCR) Negative (Neg) 07/26/23 07/26/23 07/26/23 Range/Units 14:28 10:38 10:29 WBC 10.44 10.47 (4.8-10.8) K/ul RBC 4.77 4.78 (4.70-6.10) M/uL Hgb 15.0 14.8 (14.0-18.0) g/dl Hct 43.9 43.8 (42.0-52.0) % MCV 92.0 91.6 (80.0-100.0) fL MCH 31.4 31.0 (25.0-34.0) pg MCHC 34.2 33.8 (32.0-36.0) g/dL RDW Std Deviation 45.3 44.4 (36.4-46.3) fL RDW Coeff of Liliam 13.2 13.2 (11.5-14.5) % Plt Count 107 L 103 L (130-400) K/uL MPV 10.2 9.7 (9.4-12.4) fL Immature Gran % (Auto) 0.3 0.4 % Neut % (Auto) 61.2 60.6 % Lymph % (Auto) 36.2 36.8 % [place] % (Auto) 1.9 1.9 % Eos % (Auto) 0.1 0.1 % Baso % (Auto) 0.3 0.2 % Neut # (Auto) 6.39 6.35 (1.40-6.50) K/uL Lymph # (Auto) 3.78 H 3.85 H (1.20-3.40) K/uL [place] # (Auto) 0.20 0.20 (0.11-0.59) K/uL Eos # (Auto) 0.01 0.01 (0.00-0.50) K/uL Baso # (Auto) 0.03 0.02 (0.00-0.20) K/uL Immature Gran # (Auto) 0.03 0.04 (0.01-0.20) K/uL Hairy Cells Present ESR 4 (0-20) mm/hr Sodium 133 L (136-145) mmol/L Potassium 4.4 (3.5-5.1) mmol/L Chloride 100 (98-107) mmol/L Carbon Dioxide 28 (21-32) mmol/L Anion Gap 5 (3-11) BUN 12 (6-23) mg/dl Creatinine 0.55 L (0.6-1.4) mg/dl Est Cr Clr Drug Dosing 111.4 ml/min Est GFR ( Amer) 110.9 ml/min Est GFR (Non-Af Amer) 95.7 ml/min BUN/Creatinine Ratio 21.8 H (10-20) Glucose 140 H (70-99(Fasting)) mg/dl Calcium 8.9 (8.6-10.3) mg/dl Magnesium 1.9 (1.7-2.4) mg/dl Total Bilirubin 1.4 H (0.2-1.0) mg/dl Direct Bilirubin 0.2 (0-0.2) mg/dl AST 23 (13-39) U/L ALT 13 (7-52) U/L Alkaline Phosphatase 76 (34-104) U/L Total Creatine Kinase 66 (30-223) U/L C-Reactive Protein < 0.50 (0-0.5) mg/dl B-Natriuretic Peptide 61 (0-100) pg/ml Total Protein 6.3 (6.0-8.3) gm/dl Albumin 4.3 (3.4-5.0) gm/dl Urine Color Urine Appearance (Clear) Urine pH (4.5-7.5) Ur Specific [place] (1.000-1.030) Urine Protein (Negative) Urine Glucose (UA) (Negative) Urine Ketones (Negative) Urine Blood (Negative) Urine Nitrite (Negative) Urine Bilirubin (Negative) Urine Urobilinogen (Negative) Ur Leukocyte Esterase (Negative) Urine WBC (Auto) (0-5) /hpf Urine RBC (Auto) (0-2) /hpf U Hyaline Cast (Auto) (0-2) /lpf U Epithel Cells (Auto) (0-2) /hpf Urine Bacteria (Auto) (None Seen) Lyme Disease Screen (Negative) SARS-CoV-2 (PCR) (Negative) Influenza Type A (PCR) (Neg) Influenza Type B (PCR) (Neg) RSV (RT-PCR) (Neg) Diagnostic Findings Hip/Pelvis X-Ray 07/26/23 10:49 XR femur LT 1V, XR hip LT 2V w pelvis CLINICAL HISTORY: pain, mid femur TECHNIQUE: 2 radiographic views of the right femur and 2 views of the left hip with a single view of the pelvis were obtained. Comparison: None available at the time of this dictation. FINDINGS: There is no evidence of an acute fracture. Extensive degenerative changes are seen in the left hip joint. Right total hip arthroplasty and left knee arthroplasty are seen. The soft tissues are unremarkable. IMPRESSION: Extensive degenerative changes in the hip joint without evidence of acute fracture. ACT 112: Negative or not required by law. Electronically signed by: Polo Osborne M.D. 07/26/2023 11:55 AM Venous Doppler Study 07/26/23 10:49 US venous doppler LE LT CLINICAL HISTORY: leg pain TECHNIQUE: Left lower extremity real-time compression venous ultrasound with Color Doppler imaging. Utilizing real-time ultrasonic imaging multiple real time high-resolution ultrasonic images with compression and noncompression maneuvers of the deep venous system in addition to color doppler imaging were performed from the common femoral vein through the proximal calf veins. COMPARISON: None available at the time of this dictation. FINDINGS/IMPRESSION: Currently there is normal compressibility of the deep venous system from the common femoral vein through the proximal calf veins. No superficial venous thrombosis is identified. ACT 112: Negative or not required by law. Electronically signed by: Polo Osborne M.D. 07/26/2023 12:02 PM Femur X-Ray 07/26/23 10:50 XR femur LT 1V, XR hip LT 2V w pelvis CLINICAL HISTORY: pain, mid femur TECHNIQUE: 2 radiographic views of the right femur and 2 views of the left hip with a single view of the pelvis were obtained. Comparison: None available at the time of this dictation. FINDINGS: There is no evidence of an acute fracture. Extensive degenerative changes are seen in the left hip joint. Right total hip arthroplasty and left knee arthroplasty are seen. The soft tissues are unremarkable. IMPRESSION: Extensive degenerative changes in the hip joint without evidence of acute fra cture. ACT 112: Negative or not required by law. Electronically signed by: Polo Osborne M.D. 07/26/2023 11:55 AM Chest X-Ray 07/26/23 14:32 XR chest 1V portable CLINICAL HISTORY: ?CHF TECHNIQUE: Single frontal radiograph of the chest was obtained. Comparison: Comparison is made to chest radiograph 09/19/2022 FINDINGS: No lines and tubes are seen. Cardiomegaly is noted. The aortic arch is calcified. The lungs are clear. No evidence of pleural effusion or pneumothorax. IMPRESSION: No acute chest disease and in particular no pulmonary edema. Cardiomegaly is noted. ACT 112: Negative or not required by law. Electronically signed by: Polo Osborne M.D. 07/26/2023 3:40 PM PG Care Time/CCT Total # of Minutes Spent Total Time Spent with Patient: Total time spent is greater than 50% in coordination of care (as documented) at patient's floor/unit and/or counseling patient: I spent 90 minutes overall addressing this case: 15 min in medical data review/discussion with referring provider(s) and/or preparation for the visit 25 min in direct interaction with the patient/exam 30 min in Advance Care Planning/Goals of Care discussions as det saira above in note (must be >16min) 10 min in subsequent review and synthesis of assessment and plan 10 min communicating with other providers regarding the patient's case: Advanced Care Planning 00250 Advanced Care Planning 30 [place] [address] IN/OBS CONSULT LVL 4,60M (25 - SIGNIFICANT, SEPARATELY IDENTIFIABLE ) Patient Type New Medical Decision Making High Complexity Diagnoses Weakness generalized R53.1 Altered mental status R41.82 Declining mobility Z74.09 Discussion about advance care planning held with family member Z71.0 Palliative care by specialist Z51.5 Additional Codes Advanced Care Planning - 44525 Advanced Care Planning 30 Min: 83296 Advanced Care Planning 30 Min ([id number])
[2023-07-28 07:22] LABS: BUN Creatinine Ratio 56.3 (10-20); Calcium 8.5 mg/dl (8.6-10.3); Creatinine Clr Calc Pharmacy 191.5 ml/min; Est GFR (African American) 138.6 ml/min; Est GFR (Non-African American) 119.6 ml/min
--- NOTE | 2023-07-28 11:13 | Hospitalist Progress Note ---
Date of Service July 28, 2023 Assessment & Plan (1) Weakness: Plan: Likely chronic inflammatory demyelinating polyneuropathy weakness, leg pain, myalgias, failed ambulatory trial in the ER. bilateral muscle aches, generalized fatigue, and some dry cough. CRP/ESR is normal typically clinically excluded PMR flare Patient does not have significant hyponatremia as she has had in the past to be associate with encephalopathy PT/OT has been ordered Femur/hip x-ray without evidence of fracture Dopplers with no evidence of DVT. Has history of chronic leg swelling without heart failure. Last echo with preserved EF and no diastolic dysfunction. Diuresis deferred, chronic venous stasis precautions, mobilization, compression to help mobilize fluid. Discussion with , who feels the patient has been a decline of recent and does not of quality of life, she wishes for the patient to be evaluated for palliative care and [facility] once coordination of care is complete ON 07/27, ras reports he does not want to have hospice services as of yet and would like to be sent back to [facility] to participate in PT. Patient states though if he decompensate, to transition to hospice. 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 Was investigated 2020 with a normal MRI. DVT prophylaxis: Heparin CODE STATUS: DNR/DNI Admission and Anticipated Discharge Date Admission Date: July 27, 2023 Subjective Patient again is not quite sure why he is here. He states his quality of life at home is good. He states he walks and is able to partake in physical therapy twice a week. His who is POA is not at bedside. Review of Systems Review of Systems: All systems reviewed & are unremarkable except as noted in HPI & below Physical Exam Physical Exam: He is awake he is oriented x 2 He has 4/5 bilateral upper extremity strength but 3/5 bilateral lower extremity strength. Patient has masklike facies Patient's card exam is distant and regular without murmurs lungs are clear Results & Data Results & Data Vital Signs (Past 12 Hours) Vital Signs Pulse Resp BP Pulse Ox O2 Del Method 07/28/23 07:06 67 18 153/79 H 98 Room Air PG Care Time/CCT Total # of Minutes Spent Total Time Spent with Patient: Total time spent is greater than 50% in coordination of care (as documented) at patient's floor/unit and/or counseling patient: Coding Level of Care Code 34503 SUB INP/OBS CARE 2/35MIN Diagnoses Weakness R53.1 BPH w urinary obs/LUTS N40.1; N13.8
[2023-07-28] MEDS: ACETAMINOPHEN 325 MG TAB PO PRN (20:09)
[2023-07-29 07:42] LABS: Hematocrit (blood only) 41.9 % (42.0-52.0); Hemoglobin 14.5 g/dl (14.0-18.0); Mean Corpuscular Hgb Conc 34.6 g/dL (32.0-36.0); Mean Corpuscular Volume 89.5 fL (80.0-100.0); Mean Platelet Volume 9.5 fL (9.4-12.4); Platelet Count 106 K/uL (130-400); RDW Coefficient of Variation 13.1 % (11.5-14.5); RDW Standard Deviation 42.9 fL (36.4-46.3); Red Blood Count 4.68 M/uL (4.70-6.10); White Blood Count 12.61 K/ul (4.8-10.8)
[2023-07-29 07:59] LABS: BUN Creatinine Ratio 68.8 (10-20); Calcium 8.7 mg/dl (8.6-10.3); Creatinine Clr Calc Pharmacy 191.5 ml/min; Est GFR (African American) 138.6 ml/min; Est GFR (Non-African American) 119.6 ml/min; Potassium 3.9 mmol/L (3.5-5.1)
--- NOTE | 2023-07-29 09:20 | Communication Note ---
Date of Service: July 29, 2023 Paged at [phone] Henok Lewis the wasn't in yesterday when you were here. She was wondering if she could talk with you today. Her name is Katie [phone] I returned call, no answer. [facility] requesting call back. Contact info for main office provided. Nursing aware. Thank you for allowing us to participate in the ongoing care of this patient. Please don't hesitate to call or page with any additional concerns. Dr. Monica Costa DNP Director, Palliative Care
--- NOTE | 2023-07-29 20:28 | Hospitalist Progress Note ---
Date of Service July 29, 2023 Assessment & Plan (1) Weakness: Plan: Likely chronic inflammatory demyelinating polyneuropathy weakness, leg pain, myalgias, failed ambulatory trial in the ER. bilateral muscle aches, generalized fatigue, and some dry cough. CRP/ESR is normal typically clinically excluded PMR flare Patient does not have significant hyponatremia as she has had in the past to be associate with encephalopathy PT/OT has been ordered Femur/hip x-ray without evidence of fracture Dopplers with no evidence of DVT. Has history of chronic leg swelling without heart failure. Last echo with preserved EF and no diastolic dysfunction. Diuresis deferred, chronic venous stasis precautions, mobilization, compression to help mobilize fluid. Discussion with , who feels the patient has been a decline of recent and does not of quality of life, she wishes for the patient to be evaluated for palliative care and transition back to [facility] likely on hospice care once coordination of care is complete ON 07/28, patient confused. d/w palliative care. agreeable to discharger patient on hospice. 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 Was investigated 2020 with a normal MRI. DVT prophylaxis: Heparin CODE STATUS: DNR/DNI Admission and Anticipated Discharge Date Admission Date: July 27, 2023 Subjective Patient is confused. Review of Systems Review of Systems: All systems reviewed & are unremarkable except as noted in HPI & below Physical Exam Physical Exam: He is awake but confused. He has 4/5 bilateral upper extremity strength but 3/5 bilateral lower extremity strength. Patient has masklike facies Patient's card exam is distant and regular without murmurs lungs are clear Results & Data Results & Data Vital Signs (Past 12 Hours) Vital Signs Temp Pulse Resp BP Pulse Ox O2 Del Method 07/29/23 14:48 36.4 C L 70 20 174/60 H 95 Room Air 07/29/23 09:00 Room Air PG Care Time/CCT Total # of Minutes Spent Total Time Spent with Patient: Total time spent is greater than 50% in coordination of care (as documented) at patient's floor/unit and/or counseling patient: Coding Level of Care Code 83522 SUB INP/OBS CARE 2/35MIN Diagnoses Weakness R53.1 BPH w urinary obs/LUTS N40.1; N13.8
[2023-07-30 06:29] LABS: Calcium 9.3 mg/dl (8.6-10.3); Creatinine Clr Calc Pharmacy 218.9 ml/min; Est GFR (African American) 146.4 ml/min; Est GFR (Non-African American) 126.3 ml/min; Potassium 3.7 mmol/L (3.5-5.1)
[2023-07-30 09:28] LABS: Base Excess VBG 4.9 mEq/L; HCO3 VBG 28 mmol/L; Oxygen Saturation VBG 92.1 %; PCO2 VBG 35 mmHg (38-50); PO2 VBG 56 mmHg; pH VBG 7.51 (7.36-7.41)
[2023-07-30 09:38] LABS: Hematocrit (blood only) 45.5 % (42.0-52.0); Hemoglobin 16.2 g/dl (14.0-18.0); Mean Corpuscular Hemoglobin 31.2 pg (25.0-34.0); Mean Corpuscular Hgb Conc 35.6 g/dL (32.0-36.0); Mean Corpuscular Volume 87.7 fL (80.0-100.0); Mean Platelet Volume 9.5 fL (9.4-12.4); Platelet Count 121 K/uL (130-400); RDW Coefficient of Variation 12.8 % (11.5-14.5); Red Blood Count 5.19 M/uL (4.70-6.10); White Blood Count 22.89 K/ul (4.8-10.8)
[2023-07-30 10:04] LABS: Basophils # (auto) 0.04 K/uL (0.00-0.20); Basophils % (auto) 0.2 %; Eosinophils # (auto) 0.01 K/uL (0.00-0.50); Immature Granulocytes # (auto) 0.09 K/uL (0.01-0.20); Immature Granulocytes % (auto) 0.4 %; Lymphocytes # (auto) 12.24 K/uL (1.20-3.40); Lymphocytes % (auto) 53.5 %; Monocytes # (auto) 0.83 K/uL (0.11-0.59); Monocytes % (auto) 3.6 %; Neutrophils # (auto) 9.68 K/uL (1.40-6.50); Neutrophils % (auto) 42.3 %
--- NOTE | 2023-07-30 14:21 | Discharge Summary ---
Date of Service July 30, 2023 Admission HPI Per Admitting Provider Henok Molina is a 82-year-old male with a past medical history of weakness, chronic inflammatory demyelinating polyneuropathy, PMR, hyponatremia, and urinary retention who presents from [facility] for weakness, posterior leg pain limiting ambulation, and with left greater than right calf discomfort. He has chronic lower extremity swelling without a history of CHF. Does have a history of PMR 1 dya bilateral thigh pain, cramping sensation. L leg strength intact but limited by calf/thigh discomfort. Was attempted to be d/koki from ER, but failed ambulatory trial x2 and was recommended for impatient admission Did have notable pitting edema in leg without history of CHF, ?venous stasis vs CHF with too much weight retention to ambulate Henok is seen at the bedside. She reports that he was unable to ambulate this morning due to aching pain mostly in his thighs, and a little bit in both calfs. He does not have numbness or tingling in the extremities and does not have back pain. He does have a history of cervical stenosis s/p decompression with a main symptom of numbness tingling in his hands at the time, he reports that is done well and his symptoms have actually been greatly improved with no recent worse maribel. He reports his symptoms do not feel similar to prior PMR flares as he does not usually get the PMR pain in his thighs. He reports it is an aching pain. He feels overall fatigued and weak. Denies fever/chills/night sweats. He has had no chest pain or chest pressure. No abdominal pain. He has had a dry cough in the last few days which she attributes to allergies. No sputum production. Denies dyspnea. Medical History: Reviewed Medications: Reviewed Surgical History: Reviewed Family history: Reviewed Allergies: Reviewed Social History: 1 beer per day, with recent alcohol free days, no history of withdrawal/aches Code Status: DNR/DNI Principal Diagnosis weakness Likely chronic inflammatory demyelinating polyneuropathy Discharge Exam He is lethargic He has 4/5 bilateral upper extremity strength but 3/5 bilateral lower extremity strength. Patient has masklike facies Patient's card exam is distant and regular without murmurs lungs are clear Discharge Data Allergies Allergy/AdvReac Type Severity Reaction Status Date / Time Sulfa (Sulfonamide Allergy Intermediate Arm Verified 09/29/22 11:39 Antibiotics) swelling Consultations 07/26/23 14:41 ED Decision to Admit Stat 07/27/23 16:12 Consult Palliative Care Routine Ordered Studies 07/26/23 10:49 US leg [US venous doppler LE LT] Stat Hospital Course (1) Weakness: Likely chronic inflammatory demyelinating polyneuropathy weakness, leg pain, myalgias, failed ambulatory trial in the ER. bilateral muscle aches, generalized fatigue, and some dry cough. CRP/ESR is normal typically clinically excluded PMR flare Patient does not have significant hyponatremia as she has had in the past to be associate with encephalopathy PT/OT has been ordered Femur/hip x-ray without evidence of fracture Dopplers with no evidence of DVT. Has history of chronic leg swelling without heart failure. Last echo with preserved EF and no diastolic dysfunction. Diuresis deferred, chronic venous stasis precautions, mobilization, compression to help mobilize fluid. Discussion with , who feels the patient has been a decline of recent and does not of quality of life, she wishes for the patient to be evaluated for palliative care and transition back to [facility] likely on hospice care once coordination of care is complete ON 07/28, patient confused. d/w palliative care. agreeable to discharger patient on hospice. On 07/29 Patient discharged on hospice. His agreeable to plan and did not want any further workup completed. 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 Was investigated 2020 with a normal MRI. Total Time Total Time Spent Total Time Spent (In Minutes): 32 Discharge Plan Discharge Items Patient Disposition: Hospice - Home Reason For Visit: B/I WEAKNESS, THIGH PAIN Discharge Diagnosis: B/L weakness, thigh pain Activity: Resume your previous activity Non-emergency contact: Primary Care Provider Call non-emergency contact if: you have any medication questions Follow-up/Referrals: Toy Almanza [Primary Care Provider] - Diet: Regular Addtl Attending Provider Instructions: will discharge to hospice. Pending Studies at Discharge: No Stand-Alone Forms: [facility] Medications and DC Order Prescriptions: New morphine concentrate 100 mg/5 mL (20 mg/mL) solution 5 mg PO Q6H PRN (Reason: pain/ SOB/ agitation) Qty: 30 0RF lorazepam 0.5 mg tablet 0.5 mg PO Q8H PRN (Reason: anxiety) Qty: 15 0RF Continued tamsulosin 0.4 mg capsule 0.4 mg PO QAM Qty: 30 2RF coQ10 (ubiquinol) 100 mg Capsule 100 mg PO Q2D Rx Instructions: otc. unable to verify AM ascorbic acid (vitamin C) 500 mg Capsule 500 mg PO BID Rx Instructions: otc. unable to verify cholecalciferol (vitamin D3) [Vitamin D3] 1,000 unit Capsule 1,000 unit PO DAILY Rx Instructions: otc. unable to verify Vichy 3-6-9 Fatty Acids 400-400-200 mg Capsule 1 cap PO DAILY Rx Instructions: otc. unable to verify Discharge Orders: Discharge Order (Routine); Ordered 07/30/23 Ordered By: Ricardo Regan Admission Data Admit Date/Time: 07/27/23 15:57 Attending Provider: Ricardo Regan Admit Provider: Conor Ibarra Primary Care Provider: Toy Almanza Other Providers: Conor Ibarra; Monica Costa; [facility] Other Interventions: Discharge Summary Assessment (RN) Last Done: 07/30/23 14:30 Coding Level of Care Code 81639 INP/OBS DISCH >30 MIN Diagnoses Weakness R53.1 BPH w urinary obs/LUTS N40.1; N13.8
--- NOTE | 2023-07-30 14:31 | Palliative Family Discussion ---
Date of Service July 29, 2023 Patient Directed Conference Time of Meetin-220pm Participants: Monica Costa DNP Patient participation: no Patient Support System: Other Healthcare Provider Participation: None Meeting Location: telephonic Advanced Directive available: no The patient's surrogate medical decision maker participated: yes, An ACP meeting of 30 min was held for JELLY PHILLIPS. This meeting was necessary for determining the appropriate course of treatment. Topics of Discussion Topics of Discussion: 1. Overall clinical issues and decline discussed. shared patient's declining status, increasing verbalization of declining QOL and his open / crystal discussion of mortality with her. 2. We discussed the information he shared about his brother's . She asked many questions about hospice which were answered. 3. She notes pt said he wanted to return to their cottage at [facility] however nursing visits to [facility] are on the as needed/emergency basis and not routine. They would not have supplemental help with caregiver support and even hospice at home would only given visiting services and bullk of the care would be on , which she reports has become more than she can handle. She would like him to go to [facility], [facility] at [facility] and she wants hospice added, no agency preference. Other Content of Meetin. Opportunity given for participants to speak and ask questions. 2. Participants were assured of attention to patient comfort. 3. Reassurance provided. 4. Support was provided for informed, good-evelyn decisions. 5. Emotions expressed by family were acknowledged and addressed. 6. Follow-up: Primary team notified of desire for SNF at [facility] with hospice. Time Involved in Meeting: I spent 30min in ACP discussion. Thank you for allowing us to participate in the ongoing care of this patient. Please don't hesitate to call or page with any additional concerns. Monica Costa DNP Palliative Care
[2023-07-31 10:29] LABS: Hairy Cells Present
== END 2023-07-30 15:23 | disposition hospice, home (50) | DRG 74 ==
LOC: 3N 10:13 → ED 10:13 → SUATTDRO 14:56 → 3N 16:35 → SUATTDRO 07-27 15:57